=== PATIENT | male | born 1960 | race Caucasian/White ===

== ENCOUNTER 2021-05-07 14:54 | Inpatient (IN) | payer SELFPAY ==
[~2021-05-07] VITALS: Ht 185.4 cm; Wt 125.1 kg
[2021-05-07 15:00] VITALS: BP 130/78
--- NOTE | 2021-05-07 15:04 | PDOC1 ---
History and Physical Date of Admission Date of Admission DATE: 05/07/21 TIME: 15:04 Identification/Chief Complaint Chief Complaint worsening weeping wounds of both lower extremities. , ELEVATED TROPONIN, NEW ONSET DIABETES History of Present Illness History of Present Illness 60 YR OLD MALE TRANSFER FROM [facility], with bilateral lower ext cellulitis, suspected PVD , near occlusion of left peroneal artery by doppler today, worsening weeping wounds of both lower extremities. Will defer IV antibiotic therapy to infectious disease. Has normal arterial pulses bilaterally with no concern for arterial ischemia. cr 1.5 na = 131, bun 35, glucose 506, troponin i 0.105, BGB 14.6 LA 2.4 K=4.8 CRP 293 PLTS 297 ESR =34 Request for transfer for vascular surgery consult, ID consult, new dx diabetes, bilateral lower leg cellulitis, left great toe diabetic foot ulcer / blister. cellulitis of both lower extremities which is improving WITH IV ANTIBIOTICS was treated with iv vancomycin, heparin drip prior to transfer here Past Medical History Past Medical History COLON CA, 2012 , GB SURGERY Cardiovascular: HTN Endocrine: Diabetes Family History Family History: Hypertension Family History: Parent Social History Smoke: No ALCOHOL: none Drugs: None Allergies Allergies: Coded Allergies: No Known Drug Allergies (Unverified , 05/07/21) ROS General: YES: Fatigue, Other (polydipsia) PSYCHOLOGICAL ROS: No: Anxiety, Behavioral Disorder, Concentration difficultie, Decreased libido, Depression, Disorientation, Hallucinations, Hostility, Irritablity, Memory difficulties, Mood Swings, Obsessive thoughts, Physical abuse, Sexual abuse, Sleep disturbances, Suicidal ideation, Other Eyes: Yes Blurry vision; No Decreased vision, No Double vision, No Dry eyes, No Excessive tearing, No Eye Pain, No Itchy Eyes, No Loss of vision, No Photophobia, No Scotomata, No Uses contacts, No Uses glasses, No Other HEENT: No: Heacaches, Visual Changes, Hearing change, Nasal congestion, Nasal discharge, Oral lesions, Sinus pain, Sore Throat, Epistaxis, Sneezing, Snoring, Tinnitus, Vertigo, Vocal changes, Other ALLERGY AND IMMUNOLOGY: No: Hives, Insect Bite Sensitivity, Itchy/Watery Eyes, Nasal Congestion, Post Nasal Drip, Seasonal Allergies, Other Hematological and Lymphatic: No: Bleeding Problems, Blood Clots, Blood Transfusions, Brusing, Night Sweats, Pallor, Swollen Lymph Nodes, Other ENDOCRINE: No: Breast Changes, Galactorrhea, Hair Pattern Changes, Hot Flashes, Malaise/lethargy, Mood Swings, Palpitations, Polydipsia/polyuria, Skin Changes, Temperature Intolerance, Unexpected Weight Changes, Other Breast: No New/Changing Breast Lumps, No Nipple changes, No Nipple discharge, No Other Respiratory: No: Cough, Hemoptysis, Orthopnea, Pleuritic Pain, Shortness of breath, SOB with excertion, Sputum Changes, Stridor, Tachypnea, Wheezing, Other Cardiovascular: No Chest Pain, No Palpitations, No Orthopnea, No Paroxysmal Noc. Dyspnea, No Edema, No Lt Headedness, No Other Gastrointestinal: No Nausea, No Vomiting, No Abdominal Pain, No Diarrhea, No Constipation, No Melena, No Hematochezia, No Other Genitourinary: YES Frequency; No Dysuria, No Incontinence, No Hematuria, No Retention, No Discharge, No Urgency, No Pain, No Flank Pain, No Other, No , No , No , No , No , No , No Musculoskeletal: Yes Gait Disturbance, Yes Joint Stiffness, Yes Muscular Weakness, Yes Swelling In: (LEFT FOOT/ TOE) Neurological: Yes Gait Disturbance, Yes Numbness/Tingling Skin: Yes Dry Skin, Yes Eczema, Yes Pruritus, Yes Rash, Yes Skin Lesion Changes , Yes Other ( BILATERAL LWER EXT EXCORIATIONS, CELLULITIS ) Physical Exam General: Alert, Oriented X3, Cooperative, No acute distress, mild distress HEENT: Atraumatic, PERRLA, EOMI, Mucous membr. moist/pink Lungs: Clear to auscultation, Normal air movement Heart: RRR, no thrills, no rubs, no gallops Breasts: Not examined Abdomen: Normal bowel sounds, Soft, No tenderness, No masses, Other (obese) Rectal Exam: not examined, deferred PELVIC: Examination not indicated Extremities: No cyanosis, Other (rubor of both feet , blister left plantar TOE ) Skin: Other ( BILATERAL LWER EXT EXCORIATIONS, CELLULITIS ) Neuro: Normal speech, Cranial nerves 3-12 NL Psych/Mental Status: Mental status NL, Mood NL VTE Prophylaxis Ordered VTE Prophylaxis Devices: Contraindicated VTE Pharmacological Prophylaxi: Yes Assessment/Plan Assessment/Plan IMPRESSION NEW onset Diabetes, SS INSULIN, LANTUS 10 UNITS SQ HS Morbid obesity cellulitis of both lower extremities which is improving // cr 1.5 elevated troponin i ANDREEA LEFT GREAT TOE Plantar blister, early ulcer plan ADMIT VASCULAR SURGERY CONSULT reviewed CONT IV ANTIBIOTICS, D/C VANC monitor cr closely , avoid nephrotoxins , start iv zosyn ID CONSULT defer IV antibiotic therapy to infectious disease. normal arterial pulses bilaterally no concern for arterial ischemia. d/c iv heparin Cardiology consult SS INSULIN a1c x ray left foot D/W RN Justifications for Admission Other Justification VENKATA CLARK MD May 07, 2021 15:04
[2021-05-07] MEDS ORDERED: ALBUTEROL SULFATE 2.5 MG/3 ML NEBU. NEB PRN (15:15)
[2021-05-07] MEDS ORDERED: 0.9 % SODIUM CHLORIDE 10 ML DISP.SYRIN. IV PRN (15:15)
[2021-05-07] MEDS ORDERED: guaiFENesin ORAL 200 MG/10 ML LIQUID. PO PRN (15:15)
[2021-05-07] MEDS ORDERED: MAG HYDROX/ALUMINUM HYD/SIMETH 30 ML ORAL.SUSP PO PRN (15:15)
[2021-05-07] MEDS ORDERED: ONDANSETRON PF 4 MG/2 ML VIAL. IV PRN (15:15)
[2021-05-07] MEDS ORDERED: DOCUSATE SODIUM 100 MG CAPSULE. PO PRN (15:15)
[2021-05-07] MEDS ORDERED: IV NORMAL SALINE 1000ML BAG 1,000 ML IV SCH (15:15)
[2021-05-07] MEDS ORDERED: PIP/TAZO PER PHARMACY MC PRN (17:15)
[2021-05-07] MEDS ORDERED: VANCOMYCIN PER PHARMACY MC PRN (17:15)
[2021-05-07] MEDS ORDERED: DEXTROSE 50% 25 GM / 50ML DISP.SYRIN. IV PRN ×2 (17:15→18:00)
[2021-05-07 17:26] LABS: BASO % 0 % (0-3); EOS # 0.1 x10^3/uL (0.0-0.7); EOS % 1 % (0-3); HEMATOCRIT 44.8 % (39.0-53.0); HEMOGLOBIN 14.6 g/dL (13.0-17.5); LYMPH # 0.8 x10^3/uL (1.0-4.8); LYMPH % 6 % (24-48); MEAN CORPUSCULAR HEMOGLOBIN 27 pg (25-35); MEAN CORPUSCULAR HGB CONC 33 g/dL (31-37); MEAN CORPUSCULAR VOLUME 84 fL (79-100); MONO # 0.5 x10^3/uL (0.0-1.1); MONO % 4 % (0-9); NEUT # 11.5 x10^3/uL (1.8-7.7); NEUT % 89 % (31-73); PLATELET COUNT 344 x10^3/uL (140-400); RED BLOOD COUNT 5.37 x10^6/uL (4.30-5.70); WHITE BLOOD COUNT 12.9 x10^3/uL (4.0-11.0)
--- NOTE | 2021-05-07 17:37 | PDOC2 ---
CONSULT Date of Consult Date of Consult DATE: 05/07/21 TIME: 17:30 Identification/Chief Complaint Chief Complaint Bilateral lower extremity cellulitis History of Present Illness Reason for Visit: This a very pleasant 60-year-old male who was transferred in from [facility] due to concern for arterial ischemia. Patient has primarily been confined to his home in the last several weeks and states that he has developed worsening weeping wounds of both lower extremities. He also was diagnosed as a new diabetic. He did not know he was diabetic prior to this admission. He denies any lower extremity claudication symptoms. He states he is able to walk as far as he needs to prior to his legs being infected most recently. He denies any previous peripheral intervention. He denies any heart disease. He does admit that he does not see doctors regularly or receive routine health care. He denies any pain in the legs. Past Medical History Cardiovascular: CAD, HTN Endocrine: Diabetes Dermatology: Eczema, Cellulitis Past Surgical History Past Surgical History: Cholecystectomy, Colon Resection Family History Family History: Diabetes, Hypertension Social History No ALCOHOL: none Drugs: None Lives: Alone Domestic Violence: Neg Current Medications Current Medications Current Medications Sodium Chloride (Normal Saline Flush) 3 ml QSHIFT PRN IV AFTER MEDS AND BLOOD DRAWS; Start 05/07/21 at 15:15 Sodium Chloride 1,000 ml @ 75 mls/hr [id number] IV ; Start 05/07/21 at 15:15 Ondansetron HCl (Zofran) 4 mg PRN Q4HRS PRN IV NAUSEA/VOMITING; Start 05/07/21 at 15:15 Acetaminophen (Tylenol) 650 mg PRN Q4HRS PRN PO TEMP OVER 100.4F OR MILD PAIN; Start 05/07/21 at 15:15 Al Hydroxide/Mg Hydroxide (Mylanta Plus Xs) 30 ml PRN DAILY PRN PO HEARTBURN / GAS; Start 05/07/21 at 15:15 Docusate Sodium (Colace) 100 mg PRN BID PRN PO HARD STOOLS; Start 05/07/21 at 15:15 Albuterol Sulfate (Ventolin Neb Soln) 2.5 mg PRN Q4HRS PRN NEB SHORTNESS OF BREATH; Start 05/07/21 at 15:15 Guaifenesin (Robitussin) 200 mg PRN Q4HRS PRN PO COUGH; Start 05/07/21 at 15:15 Enoxaparin Sodium (Lovenox 40mg Syringe) 40 mg Q24H SQ ; Start 05/07/21 at 21:00 Insulin Human Lispro (HumaLOG) 0-9 UNITS TIDWMEALS SQ ; Start 05/07/21 at 17:30 Dextrose (Dextrose 50%-Water Syringe) 12.5 gm PRN Q15MIN PRN IV SEE COMMENTS; Start 05/07/21 at 17:15 Sodium Chloride 1,000 ml @ 150 mls/hr Q6H40M IV ; Start 05/07/21 at 17:15 Lactobacillus Rhamnosus (Culturelle) 1 cap BID PO ; Start 05/07/21 at 21:00 Morphine Sulfate (Morphine Sulfate) 4 mg PRN Q2HR PRN IV PAIN; Start 05/07/21 at 17:15 Nifedipine (Procardia Xl) 30 mg DAILY PO ; Start 05/08/21 at 09:00 Piperacillin Sod/ Tazobactam Sod (Zosyn Per Pharmacy) 1 each PRN DAILY PRN MC SEE COMMENTS; Start 05/07/21 at 17:15 Piperacillin Sod/ Tazobactam Sod 3.375 gm/Sodium Chloride 50 ml @ 100 mls/hr Q6HRS IV ; Start 05/07/21 at 18:00 Vancomycin HCl (Vanco Per Pharmacy) 1 each PRN DAILY PRN MC SEE COMMENTS; Start 05/07/21 at 17:15 Vancomycin HCl 1.75 gm/Sodium Chloride 500 ml @ 250 mls/hr Q12H IV ; Start 05/07/21 at 20:00; Status UNV Zolpidem Tartrate (Ambien) 5 mg PRN QHS PRN PO INSOMNIA; Start 05/07/21 at 17:15 Allergies Allergies: Coded Allergies: No Known Drug Allergies (Unverified , 05/07/21) ROS Skin: Yes Eczema, Yes Rash, Yes Skin Lesion Changes Physical Exam General: Alert, Oriented X3, Cooperative, No acute distress HEENT: Atraumatic, PERRLA, EOMI Lungs: Clear to auscultation, Normal air movement Heart: Regular rate, Normal S1, Normal S2, No murmurs Abdomen: Normal bowel sounds, Soft, No tenderness Extremities: No cyanosis, Normal pulses, Other (Palpable pulse exam bilaterally with normal dorsalis pedis pulses, normal sounding posterior tibial Doppler signals, palpable femoral and popliteal pulses bilaterally) Skin: Other (Significant cellulitis of bilateral lower extremities with superficial wounds anteriorly and posteriorly throughout both lower extremities bilaterally there is no obvious bony exposure, there is no crepitance, there is no evidence of purulent drainage) Neuro: Normal speech, Strength at 5/5 X4 ext, Sensation intact, Cranial nerves 3-12 NL Psych/Mental Status: Mental status NL, Mood NL MUSCULOSKELETAL: No deformity, No muscular tenderness noted, Full range of motion without pain Vitals VITALS Vital Signs Date Time Temp Pulse Resp B/P (MAP) Pulse Ox O2 Delivery O2 Flow Rate FiO2 05/07/21 15:00 98.0 102 18 130/78 (95) 93 Room Air 98.0 Labs Labs Laboratory Tests Test 05/07/21 17:15 White Blood Count 12.9 x10^3/uL (4.0-11.0) Red Blood Count 5.37 x10^6/uL (4.30-5.70) Hemoglobin 14.6 g/dL (13.0-17.5) Hematocrit 44.8 % (39.0-53.0) Mean Corpuscular Volume 84 fL (79-100) Mean Corpuscular Hemoglobin 27 pg (25-35) Mean Corpuscular Hemoglobin Concent 33 g/dL (31-37) Red Cell Distribution Width 16.0 % (11.5-14.5) Platelet Count 344 x10^3/uL (140-400) Neutrophils (%) (Auto) 89 % (31-73) Lymphocytes (%) (Auto) 6 % (24-48) Monocytes (%) (Auto) 4 % (0-9) Eosinophils (%) (Auto) 1 % (0-3) Basophils (%) (Auto) 0 % (0-3) Neutrophils # (Auto) 11.5 x10^3/uL (1.8-7.7) Lymphocytes # (Auto) 0.8 x10^3/uL (1.0-4.8) Monocytes # (Auto) 0.5 x10^3/uL (0.0-1.1) Eosinophils # (Auto) 0.1 x10^3/uL (0.0-0.7) Basophils # (Auto) 0.0 x10^3/uL (0.0-0.2) Laboratory Tests Test 05/07/21 17:15 White Blood Count 12.9 x10^3/uL (4.0-11.0) Red Blood Count 5.37 x10^6/uL (4.30-5.70) Hemoglobin 14.6 g/dL (13.0-17.5) Hematocrit 44.8 % (39.0-53.0) Mean Corpuscular Volume 84 fL (79-100) Mean Corpuscular Hemoglobin 27 pg (25-35) Mean Corpuscular Hemoglobin Concent 33 g/dL (31-37) Red Cell Distribution Width 16.0 % (11.5-14.5) Platelet Count 344 x10^3/uL (140-400) Neutrophils (%) (Auto) 89 % (31-73) Lymphocytes (%) (Auto) 6 % (24-48) Monocytes (%) (Auto) 4 % (0-9) Eosinophils (%) (Auto) 1 % (0-3) Basophils (%) (Auto) 0 % (0-3) Neutrophils # (Auto) 11.5 x10^3/uL (1.8-7.7) Lymphocytes # (Auto) 0.8 x10^3/uL (1.0-4.8) Monocytes # (Auto) 0.5 x10^3/uL (0.0-1.1) Eosinophils # (Auto) 0.1 x10^3/uL (0.0-0.7) Basophils # (Auto) 0.0 x10^3/uL (0.0-0.2) Assessment/Plan Assessment/Plan Bilateral lower extremity severe cellulitis--patient has cellulitis of both lower extremities which is improving with broad-spectrum IV antibiotic therapy. There is no surgical therapy indicated. Would continue aggressive dressing changes and wound care. Will defer IV antibiotic therapy to infectious disease. Has normal arterial pulses bilaterally with no concern for arterial ischemia. There is no revascularization indicated. All questions were answered to the patient's satisfaction. Nery Desouza DO, NERY RAMOS DO May 07, 2021 17:36
[2021-05-07 18:03] LABS: ALBUMIN/GLOBULIN RATIO 0.4 (1.0-1.7); CALCIUM 8.7 mg/dL (8.5-10.1); GFR 34.3; POTASSIUM 4.5 mmol/L (3.5-5.1); TOTAL PROTEIN 6.5 g/dL (6.4-8.2)
[2021-05-07] MEDS: IV NORMAL SALINE 1000ML BAG 1,000 ML IV SCH (18:10)
[2021-05-07 18:31] LABS: % BANDS 18 % (0-9); % EOS 2 % (0-5); % LYMPHS 3 % (24-48); % MONOS 3 % (0-10); % SEGS 74 % (35-66); PLT ESTIMATE ADEQUATE (ADEQUATE)
[2021-05-07 19:20] VITALS: BP 123/81
[2021-05-07] MEDS: PIPERACILLIN/TAZOBACTAM 3.375 GM in IV NORMAL SALINE 50ML 50 ML IV SCH (19:36)
[2021-05-07] MEDS: INSULIN LISPRO 300 UNITS/3 ML VIAL. SQ SCH (19:46)
[2021-05-07] MEDS ORDERED: VANCOMYCIN 1.75 GM in IV NORMAL SALINE 500ML BAG 500 ML IV SCH (20:00)
[2021-05-07] MEDS: MORPHINE SULFATE 4 MG/ML INJ. IV PRN (20:20)
[2021-05-07 20:44] LABS: CALCIUM 8.6 mg/dL (8.5-10.1); CREATININE 2.1 mg/dL (0.7-1.3); GFR 32.4; POTASSIUM 4.5 mmol/L (3.5-5.1)
[2021-05-07] MEDS: LACTOBACILLUS RHAMNOSUS GG 1 CAPSULE. PO SCH (21:00)
[2021-05-07] MEDS: ENOXAPARIN 40 MG/0.4 ML SYRINGE. SQ SCH (21:00)
[2021-05-07] MEDS: ZOLPIDEM 5 MG TABLET. PO PRN (22:01)
[2021-05-07] MEDS: INSULIN GLARGINE SYRINGE. SQ SCH (22:03)
[2021-05-07 23:59] VITALS: BP 117/74
[2021-05-08] MEDS: PIPERACILLIN/TAZOBACTAM 3.375 GM in IV NORMAL SALINE 50ML 50 ML IV SCH ×4 (00:37→17:46)
[2021-05-08] MEDS: IV NORMAL SALINE 1000ML BAG 1,000 ML IV SCH ×3 (02:07→17:46)
[2021-05-08 03:59] VITALS: BP 115/78
[2021-05-08] MEDS: MORPHINE SULFATE 4 MG/ML INJ. IV PRN ×3 (06:19→19:24)
[2021-05-08 07:00] VITALS: BP 134/91
[2021-05-08 07:58] LABS: VANC TR 18.3 mcg/mL (10.0-20.0)
[2021-05-08] MEDS ORDERED: INSULIN LISPRO 300 UNITS/3 ML VIAL. SQ SCH (08:00)
[2021-05-08] MEDS: LACTOBACILLUS RHAMNOSUS GG 1 CAPSULE. PO SCH ×2 (09:01→21:05)
[2021-05-08] MEDS: ACETAMINOPHEN 325 MG TABLET. PO PRN ×2 (09:09→15:11)
--- NOTE | 2021-05-08 09:12 | CONS ---
DATE OF CONSULTATION: 05/08/2021 REFERRING PHYSICIAN: Dr. Baxter. REASON FOR CONSULTATION: Antibiotic management for bilateral lower extremity cellulitis. HISTORY OF PRESENT ILLNESS: A 60-year-old male who presented to [place] with complaints of bilateral lower extremity wounds, failed outpatient treatment. The patient developed rash on both lower extremities about a month ago. The patient has underlying eczema. He initially thought that was just skin irritation, progressively got worse with redness, erythema, open wounds, nonhealing despite outpatient wound clinic treatment. He has a history of diabetes. Upon presentation, he was found to have ANDREEA, lactic acidosis, mild troponin elevation. The patient denies any fever, chills, nausea, vomiting, diarrhea, abdominal pain. Denies being seen by any provider in the last couple of years. He denies being on any antibiotics recently. He had some diarrhea, which he attributes to getting some prednisone for lower extremity wounds. Patient was started on Zosyn. White count here was 12.5. Lactic acid was 2.4 at outside hospital. Creatinine was 1.5, albumin was 2.2. UA was negative. ESR was 34. C-reactive protein was 283. Glucose was 510 by fingerstick. PAST MEDICAL HISTORY: Diabetes, hypertension, coronary artery disease, history of colorectal cancer in 2012, gallbladder surgery. FAMILY HISTORY: As per HPI. SOCIAL HISTORY: Denies smoking, ETOH, or illicit drug use. Lives at home. No pets. ALLERGIES: No known drug allergies. CURRENT MEDICATIONS: Zosyn. Other medications reviewed in medication list. The patient also on vancomycin, which is discontinued. REVIEW OF SYSTEMS: Negative except for above in the HPI. PHYSICAL EXAMINATION: VITAL SIGNS: Temperature 97.3, pulse 100, respiratory rate 18, blood pressure 134/91, oxygen saturation 96% on room air. GENERAL: Alert, oriented x 3 male sitting upright in bed, in no acute distress, nontoxic appearing. HEENT: Normocephalic, atraumatic. Anicteric. No thrush. Dentition poor. NECK: Supple, no JVD. LUNGS: Clear. HEART: S1, S2. No murmurs. ABDOMEN: Soft, nontender, nondistended. EXTREMITIES: Bilateral lower extremity dressing in place, intact, not taken down. DERM: Wound pictures noted in chart. The patient has bilateral lower extremity excoriation in the thigh. Bilateral foot callus, left toe greater than right toe. Right lower extremity wounds with ulceration noted numerous. No gross purulence noted. Edema present. LABORATORY DATA: WBC 12.9, hemoglobin 14.6, platelets 344. Sodium 132, potassium 4.5, chloride 97, bicarbonate 25, BUN 46, creatinine 2.0, glucose down to 235, albumin 2.0, vancomycin 18.3. IMAGING: Foot x-ray results pending at this time. IMPRESSION: 1. Bilateral lower extremity chronic wounds. 2. Mild superimposed infection. 3. Peripheral arterial disease. 4. Leukocytosis, was on steroids. 5. Lactic acidosis. 6. Acute kidney injury. 7. Uncontrolled diabetes. 8. History of noncompliance. 9. Eczema. 10. History of colon cancer. RECOMMENDATIONS: 1. Continue Zosyn, may need renal dosing. 2. Start daptomycin. 3. Continue local wound care. 4. Elevate legs. 5. Vascular Surgery consult noted. 6. Offload. 7. Optimal diabetes control. 8. Optimal edema control. 9. Follow up labs and cultures. 10. Continue supportive care. Thank you, Dr. Baxter for consulting Infectious Disease to participate in this patient's care. If you have any questions, do not hesitate to contact me. Discussed with nursing staff. DEO/EDUARDO DR: Garcia TID: [id number]
[2021-05-08] MEDS: INSULIN LISPRO 300 UNITS/3 ML VIAL. SQ SCH ×3 (09:17→17:52)
[2021-05-08 10:28] VITALS: BP 133/86
--- NOTE | 2021-05-08 11:00 | RAD ---
XR FOOT_LEFT 3 VIEWS History: Swelling, diabetic foot Comparison: None. Technique: 3 views of the left foot. Findings: Prominent swelling of the dorsum of the foot. No fracture or dislocation identified. No aggressive os seous or erosive change. Degenerative changes at the first metatarsophalangeal joint and interphalang eal joints. Plantar calcaneal and Achilles insertion enthesophytes. Impression: 1. Soft tissue swelling without acute osseous abnormality or aggressive osseous erosive process in t he left foot. Electronically signed by: Crispin Bradley MD (05/08/2021 10:58 AM) [facility]
--- NOTE | 2021-05-08 11:12 | NUR ---
SS following for discharge planning. SS reviewed pt chart and discussed with pt RN. Pt is from home and is currently on room air. ID, Vascular, Cardiology, and wound care consulted. Pt on IV Daptomycin and IV Zosyn. Self pay. SS will continue to follow for discharge planning.
[2021-05-08] MEDS: DAPTOmycin (GENERIC) IVPB 570 MG in IV NORMAL SALINE 50ML 50 ML IV SCH (12:29)
--- NOTE | 2021-05-08 13:02 | PDOC ---
ALICE LINDSAY SENIOR SALES COMPENSATION ANALYST 05/08/21 1302: CARDIO Progress Notes Date and Time Date of Service 05/08/21 Time of Evaluation 1245 Subjective Subjective: No Chest Pain, No shortness of breath, No Palpitations Vitals Vitals Vital Signs Date Time Temp Pulse Resp B/P (MAP) Pulse Ox O2 Delivery O2 Flow Rate FiO2 05/08/21 10:28 97.8 104 18 133/86 (102) 95 Room Air 97.8 Weight Weight [ ] Input and Output Intake and Output Intake and Output 05/08/21 07:00 Intake Total 300 ml Output Total 300 ml Balance 0 ml Intake Oral 300 ml Output Urine Total 300 ml Laboratory Labs Laboratory Tests Test 05/07/21 16:17 05/07/21 17:15 05/07/21 18:30 05/07/21 19:42 Glucose (Fingerstick) 253 mg/dL (70-99) 267 mg/dL (70-99) 295 mg/dL (70-99) White Blood Count 12.9 x10^3/uL (4.0-11.0) Red Blood Count 5.37 x10^6/uL (4.30-5.70) Hemoglobin 14.6 g/dL (13.0-17.5) Hematocrit 44.8 % (39.0-53.0) Mean Corpuscular Volume 84 fL (79-100) Mean Corpuscular Hemoglobin 27 pg (25-35) Mean Corpuscular Hemoglobin Concent 33 g/dL (31-37) Red Cell Distribution Width 16.0 % (11.5-14.5) Platelet Count 344 x10^3/uL (140-400) Neutrophils (%) (Auto) 89 % (31-73) Lymphocytes (%) (Auto) 6 % (24-48) Monocytes (%) (Auto) 4 % (0-9) Eosinophils (%) (Auto) 1 % (0-3) Basophils (%) (Auto) 0 % (0-3) Neutrophils # (Auto) 11.5 x10^3/uL (1.8-7.7) Lymphocytes # (Auto) 0.8 x10^3/uL (1.0-4.8) Monocytes # (Auto) 0.5 x10^3/uL (0.0-1.1) Eosinophils # (Auto) 0.1 x10^3/uL (0.0-0.7) Basophils # (Auto) 0.0 x10^3/uL (0.0-0.2) Segmented Neutrophils % 74 % (35-66) Band Neutrophils % 18 % (0-9) Lymphocytes % 3 % (24-48) Monocytes % 3 % (0-10) Eosinophils % 2 % (0-5) Dohle Bodies Present Platelet Estimate Adequate (ADEQUATE) Sodium Level 132 mmol/L (136-145) Potassium Level 4.5 mmol/L (3.5-5.1) Chloride Level 97 mmol/L (98-107) Carbon Dioxide Level 25 mmol/L (21-32) Anion Gap 10 (6-14) Blood Urea Nitrogen 46 mg/dL (8-26) Creatinine 2.0 mg/dL (0.7-1.3) Estimated GFR (Cockcroft-Gault) 34.3 BUN/Creatinine Ratio 23 (6-20) Glucose Level 235 mg/dL (70-99) Calcium Level 8.7 mg/dL (8.5-10.1) Total Bilirubin 1.0 mg/dL (0.2-1.0) Aspartate Amino Transf (AST/SGOT) 30 U/L (15-37) Alanine Aminotransferase (ALT/SGPT) 34 U/L (16-63) Alkaline Phosphatase 142 U/L (46-116) Total Protein 6.5 g/dL (6.4-8.2) Albumin 2.0 g/dL (3.4-5.0) Albumin/Globulin Ratio 0.4 (1.0-1.7) Test 05/07/21 20:10 05/07/21 20:49 05/08/21 07:20 05/08/21 07:33 Sodium Level 132 mmol/L (136-145) Potassium Level 4.5 mmol/L (3.5-5.1) Chloride Level 100 mmol/L (98-107) Carbon Dioxide Level 23 mmol/L (21-32) Anion Gap 9 (6-14) Blood Urea Nitrogen 51 mg/dL (8-26) Creatinine 2.1 mg/dL (0.7-1.3) Estimated GFR (Cockcroft-Gault) 32.4 Glucose Level 292 mg/dL (70-99) Calcium Level 8.6 mg/dL (8.5-10.1) Glucose (Fingerstick) 257 mg/dL (70-99) 226 mg/dL (70-99) Vancomycin Level Trough 18.3 mcg/mL (10.0-20.0) Vancomycin Last Dose Date 05/07/21 Vancomycin Last Dose Time 0800 Test 05/08/21 11:39 Glucose (Fingerstick) 259 mg/dL (70-99) Physical Exam HEENT: Neck Supple W Full Motion Chest: Symmetric LUNGS: Clear to Auscultation Heart: RRR, no gallops Abdomen: Soft N/T Extremities: Other (bilateral LE cellulitis, drsgs intact ) Neurology: alert, oriented, follow commands Assessment Assessment 1. LE cellulitis 2. Lactic acidosis 3. ANDREEA 4. Uncontrolled diabetes, II; as per IM 5. Mild troponin elevation; highest 0.28. Most probably type II, demand ischemia in setting of above. CP free 6. Sinus tachycardia, reactive to above. improved 7. Hypertensive urgency; now controlled. 8. PAD; arterial duplex with occlusion of left peroneal artery. No major vascular stenosis above the knee 9. Arrhythmia; burst of 6-beat NSVT noted on tele at [facility]. 10. Noncompliance Recommendations Echo to assess LV systolic function Add ASA Ongoing antibiotic therapy, treatment of cellulitis Local wound care Supportive care Justicifation of Admission Dx: Justifications for Admission: Justification of Admission Dx: Yes Comments: LE cellulitis with failed outpatient treatment Elevated troponin MAYNOR WOLFE MD 05/08/212054: CARDIO Progress Notes Assessment Assessment Patient seen and examined. Agree with RADIO EQUIPMENT INSTALLER's assessment and plan. Continue IV antibiotics for LE cellulitis Arterial duplex did not show any significant lesions needing intervention Check echo to assess LVF ALICE LINDSAY APRN May 08, 2021 13:02 MAYNOR WOLFE MD May 08, 2021 20:55
--- NOTE | 2021-05-08 13:05 | PDOC ---
[employer] PROGRESS NOTE Date of Service DOS: DATE: 05/08/21 TIME: 12:55 Chief Complaint Chief Complaint CC: bilateral LE cellulitis, elevated troponin I BL LE cellulitis Elevated troponin I (0.265) Newly diagnosed diabetes, type 2 ANDREEA Hyponatremia PVD Left great toe diabetic ulcer HTN H/o colon cancer in 2011 History of Present Illness History of Present Illness 05/08/21 Patient seen and examined Patient in bed, alert, NAD Afebrile Clean dry intact dressing on bilateral LE Run of PVCs on classroom monitor during exam Patient denies palpitations, chest pain, dyspnea Discussed with RN Vitals/I&O Vitals/I&O: Vital Signs Date Time Temp Pulse Resp B/P (MAP) Pulse Ox O2 Delivery O2 Flow Rate FiO2 05/08/21 10:28 97.8 104 18 133/86 (102) 95 Room Air 97.8 I & O 05/07/21 05/07/21 05/08/21 15:00 23:00 07:00 Intake Total 100 ml 200 ml Output Total 300 ml Balance 100 ml -100 ml Physical Exam Physical Exam: GENERAL: NAD, Alert HEENT: PERRL, OC/OP NECK: Supple, no JVD, no LN LUNGS: Clear HEART: S1S2, no gallop, no murmur, PVCs on classroom monitor ABD: Soft, NT, no organomegaly, no rebound EXT: No edema, no cyanosis. Bilateral lower extremity cellulitis. Small ulcerated blister on left great toe. SHOW DOG TRAINER: Alert, oriented x 3, no focal neurologic deficit SKIN: Bilateral lower extremity cellulitis. Small ulcerated blister on left great toe. IV: ok General: Alert, Oriented X3, Cooperative, No acute distress Heart: Regular rate, Normal S1, Normal S2, No murmurs, Other (PVCs on classroom monitor) Abdomen: Normal bowel sounds, Soft, No tenderness Extremities: No cyanosis, Normal pulses, Other (Palpable pulse exam bilaterally with normal dorsalis pedis pulses, normal sounding posterior tibial Doppler s ignals, palpable femoral and popliteal pulses bilaterally) Skin: Other ( BILATERAL LWER EXT EXCORIATIONS, CELLULITIS. Left great toe small ulcer ) Labs Labs: Laboratory Tests Test 05/07/21 16:17 05/07/21 17:15 05/07/21 18:30 05/07/21 19:42 Glucose (Fingerstick) 253 mg/dL (70-99) 267 mg/dL (70-99) 295 mg/dL (70-99) White Blood Count 12.9 x10^3/uL (4.0-11.0) Red Blood Count 5.37 x10^6/uL (4.30-5.70) Hemoglobin 14.6 g/dL (13.0-17.5) Hematocrit 44.8 % (39.0-53.0) Mean Corpuscular Volume 84 fL (79-100) Mean Corpuscular Hemoglobin 27 pg (25-35) Mean Corpuscular Hemoglobin Concent 33 g/dL (31-37) Red Cell Distribution Width 16.0 % (11.5-14.5) Platelet Count 344 x10^3/uL (140-400) Neutrophils (%) (Auto) 89 % (31-73) Lymphocytes (%) (Auto) 6 % (24-48) Monocytes (%) (Auto) 4 % (0-9) Eosinophils (%) (Auto) 1 % (0-3) Basophils (%) (Auto) 0 % (0-3) Neutrophils # (Auto) 11.5 x10^3/uL (1.8-7.7) Lymphocytes # (Auto) 0.8 x10^3/uL (1.0-4.8) Monocytes # (Auto) 0.5 x10^3/uL (0.0-1.1) Eosinophils # (Auto) 0.1 x10^3/uL (0.0-0.7) Basophils # (Auto) 0.0 x10^3/uL (0.0-0.2) Segmented Neutrophils % 74 % (35-66) Band Neutrophils % 18 % (0-9) Lymphocytes % 3 % (24-48) Monocytes % 3 % (0-10) Eosinophils % 2 % (0-5) Dohle Bodies Present Platelet Estimate Adequate (ADEQUATE) Sodium Level 132 mmol/L (136-145) Potassium Level 4.5 mmol/L (3.5-5.1) Chloride Level 97 mmol/L (98-107) Carbon Dioxide Level 25 mmol/L (21-32) Anion Gap 10 (6-14) Blood Urea Nitrogen 46 mg/dL (8-26) Creatinine 2.0 mg/dL (0.7-1.3) Estimated GFR (Cockcroft-Gault) 34.3 BUN/Creatinine Ratio 23 (6-20) Glucose Level 235 mg/dL (70-99) Calcium Level 8.7 mg/dL (8.5-10.1) Total Bilirubin 1.0 mg/dL (0.2-1.0) Aspartate Amino Transf (AST/SGOT) 30 U/L (15-37) Alanine Aminotransferase (ALT/SGPT) 34 U/L (16-63) Alkaline Phosphatase 142 U/L (46-116) Total Protein 6.5 g/dL (6.4-8.2) Albumin 2.0 g/dL (3.4-5.0) Albumin/Globulin Ratio 0.4 (1.0-1.7) Test 05/07/21 20:10 05/07/21 20:49 05/08/21 07:20 05/08/21 07:33 Sodium Level 132 mmol/L (136-145) Potassium Level 4.5 mmol/L (3.5-5.1) Chloride Level 100 mmol/L (98-107) Carbon Dioxide Level 23 mmol/L (21-32) Anion Gap 9 (6-14) Blood Urea Nitrogen 51 mg/dL (8-26) Creatinine 2.1 mg/dL (0.7-1.3) Estimated GFR (Cockcroft-Gault) 32.4 Glucose Level 292 mg/dL (70-99) Calcium Level 8.6 mg/dL (8.5-10.1) Glucose (Fingerstick) 257 mg/dL (70-99) 226 mg/dL (70-99) Vancomycin Level Trough 18.3 mcg/mL (10.0-20.0) Vancomycin Last Dose Date 05/07/21 Vancomycin Last Dose Time 0800 Test 05/08/21 11:39 Glucose (Fingerstick) 259 mg/dL (70-99) Review of Systems Review of Systems: CONSTITUTIONAL: No fever or chills CARDIOVASCULAR: No chest pain, no palpitations, no chest pressure RESPIRATORY: No shortness of breath, cough GI: No nausea, vomiting, or diarrhea, abdominal pain NEURO: No headache, dizziness Assessment and Plan Assessmemt and Plan ASSESSMENT BL LE cellulitis Elevated troponin I (0.265) Newly diagnosed diabetes, type 2 ANDREEA Hyponatremia PVD Left great toe diabetic ulcer HTN H/o colon cancer in 2012 PLAN Cardiac monitoring IV antibiotics Wound care Trend labs PT/OT Appreciate wound care Appreciate subspecialist input Podiatry consult DVT prophylaxis Full code Comment Review of Relevant I have reviewed the following items rosa (where applicable) has been applied. Medications: Current Medications Medications (Trade) Dose Ordered Sig/Mata Route PRN Reason Start Time Stop Time Status Last Admin Dose Admin Acetaminophen (Tylenol) 650 mg PRN Q4HRS PRN PO TEMP OVER 100.4F OR MILD PAIN 05/07/21 15:15 05/08/21 09:09 Enoxaparin Sodium (Lovenox 40mg Syringe) 40 mg Q24H SQ 05/07/21 21:00 05/07/21 21:00 Insulin Human Lispro (HumaLOG) 0-9 UNITS TIDWMEALS SQ 05/07/21 17:30 05/08/21 12:37 Sodium Chloride 1,000 ml @ 150 mls/hr Q6H40M IV 05/07/21 17:15 05/08/21 09:09 Lactobacillus Rhamnosus (Culturelle) 1 cap BID PO 05/07/21 21:00 05/08/21 09:01 Morphine Sulfate (Morphine Sulfate) 4 mg PRN Q2HR PRN IV PAIN 05/07/21 17:15 05/08/21 06:19 Nifedipine (Procardia Xl) 30 mg DAILY PO 05/08/21 09:00 05/08/21 09:01 Piperacillin Sod/ Tazobactam Sod 3.375 gm/Sodium Chloride 50 ml @ 100 mls/hr Q6HRS IV 05/07/21 18:00 05/08/21 06:16 Zolpidem Tartrate (Ambien) 5 mg PRN QHS PRN PO INSOMNIA 05/07/21 17:15 05/07/21 22:01 Insulin Glargine (Lantus Syringe) 10 unit QHS SQ 05/07/21 21:00 05/07/21 22:03 Daptomycin 570 mg/ Sodium Chloride 50 ml @ 100 mls/hr Q24H IV 05/08/21 11:00 05/08/21 12:29 Justifications for Admission General Conditions Abnormal capillary refill?: Yes Justification for admission: Patient has tachycardia (> 100 beats per minute) or hypotension (SBP < 90 mm Hg) leading to inadequate systemic perfusion as indicated by new abnormal capillary refill of greater than 3 seconds. Other justification for admit: severe pvd Other Justification RADHA BROWN III DO May 08, 2021 13:05
--- NOTE | 2021-05-08 13:45 | NUR ---
Wound Care Wound Type/Assessment: patient seen per wound care consult. see wound assessment. patient has bilateral great toe DFU, that are closed dark calloused area. patient also has bilateral lower leg cellulitis, the areas to bilateral legs are weeping with a moderate yellow drainage, the legs have a dark red appearance in some areas with multiple areas of yellow slough, both legs area edematous. Bilateral great toe wounds were cleaned, measured, pictured and redressed with recommendations of Xeroform gauze with a non adhesive foam and tape. bilateral lower legs were cleaned, measured and redressed with recommendations of therahoney gel with Aquacel ag with abd pads, Kerlix and tape. patients legs elevated with pillows at this time. Treatment Recommendations/Plan:Recommendations for the great toe wounds: cleanse wound, apply Xeroform gauze with a non adhesive foam with tape, change every 2-3 days. Recommendations for bilateral lower legs: cleanse the wounds then apply therahoney gel to the yellow slough areas then apply Aquacel ag over with abd pads, Kerlix and tape, change every other day. Patient needs to elevate bilateral lower legs with pillows. Education provided: Educated patient on the dressings. Recommendations: Recommend wound care physician to assess for possible bedside debridement. Discharge Recommendations for dressings: Wound Care will continue to f/u.
--- NOTE | 2021-05-08 14:59 | RAD ---
EXAMINATION: Chest radiograph. VIEWS: Single view COMPARISON: 08/17/2011 INDICATION:60 years, Male, PICC line placement. FINDINGS: Borderline enlarged cardiomediastinal silhouette. Bibasilar subsegmental and/or infiltrates. No sizab le pleural effusion or pneumothorax. No acute osseous process. Left PICC line venous catheter termina edu in the superior cavoatrial junction. IMPRESSION: 1. Left PICC line venous catheter terminates in the superior cavoatrial junction. 2. Bibasilar subsegmental atelectasis and/or infiltrates. Clinical correlation is advised. Electronically signed by: Lorenzo Hines MD (05/08/2021 2:56 PM) [facility]
[2021-05-08 15:00] VITALS: BP 136/99
[2021-05-08] MEDS: MULTIVITAMIN I-VITE TABLET. PO SCH (15:10)
[2021-05-08] MEDS: ASCORBIC ACID 500 MG TABLET PO SCH (15:10)
[2021-05-08 19:28] LABS: BILIRUBIN,URINE NEGATIVE (NEG); CLARITY,URINE CLOUDY; COLOR,URINE AMBER; NITRITE,URINE NEGATIVE (NEG); PROTEIN,URINE 100 mg/dL (NEG-TRACE); UROBILINOGEN,URINE 0.2 mg/dL (0.2 mg/dL)
[2021-05-08 19:35] LABS: AMORPHOUS SEDIMENT,UR PRESENT /HPF; BACTERIA,URINE 0 /HPF (0-FEW); GRANULAR CASTS,URINE FEW /HPF; RBC,URINE 0 /HPF (0-2)
[2021-05-08 19:36] LABS: WBC,URINE OCC /HPF (0-4)
[2021-05-08 19:54] VITALS: BP 136/86
[2021-05-08] MEDS: ENOXAPARIN 40 MG/0.4 ML SYRINGE. SQ SCH (21:06)
[2021-05-08] MEDS: INSULIN GLARGINE SYRINGE. SQ SCH (21:09)
[2021-05-08 23:59] VITALS: BP 123/79
[2021-05-09] MEDS: ZOLPIDEM 5 MG TABLET. PO PRN ×2 (00:16→21:48)
[2021-05-09] MEDS: PIPERACILLIN/TAZOBACTAM 3.375 GM in IV NORMAL SALINE 50ML 50 ML IV SCH ×4 (00:16→18:10)
[2021-05-09 01:11] LABS: HEMOGLOBIN A1C 11.7 % (4.8-5.6)
[2021-05-09] MEDS: IV NORMAL SALINE 1000ML BAG 1,000 ML IV SCH ×4 (01:35→18:10)
[2021-05-09 03:18] VITALS: BP 124/93
[2021-05-09 04:47] LABS: BASO % 0 % (0-3); EOS # 0.3 x10^3/uL (0.0-0.7); EOS % 3 % (0-3); HEMATOCRIT 43.6 % (39.0-53.0); HEMOGLOBIN 14.2 g/dL (13.0-17.5); LYMPH # 0.8 x10^3/uL (1.0-4.8); LYMPH % 8 % (24-48); MEAN CORPUSCULAR HEMOGLOBIN 27 pg (25-35); MEAN CORPUSCULAR HGB CONC 33 g/dL (31-37); MEAN CORPUSCULAR VOLUME 84 fL (79-100); MONO # 0.7 x10^3/uL (0.0-1.1); MONO % 7 % (0-9); NEUT # 8.9 x10^3/uL (1.8-7.7); NEUT % 83 % (31-73); PLATELET COUNT 357 x10^3/uL (140-400); RED BLOOD COUNT 5.19 x10^6/uL (4.30-5.70); RED CELL DISTRIBUTION WIDTH 16.1 % (11.5-14.5); WHITE BLOOD COUNT 10.8 x10^3/uL (4.0-11.0)
[2021-05-09 05:12] LABS: CALCIUM 8.4 mg/dL (8.5-10.1); CREATININE 2.4 mg/dL (0.7-1.3); GFR 27.8; POTASSIUM 3.6 mmol/L (3.5-5.1)
[2021-05-09] MEDS: MORPHINE SULFATE 4 MG/ML INJ. IV PRN ×4 (06:03→19:36)
[2021-05-09 07:49] VITALS: BP 138/89
[2021-05-09] MEDS: INSULIN LISPRO 300 UNITS/3 ML VIAL. SQ SCH ×3 (08:00→18:16)
--- NOTE | 2021-05-09 08:51 | PDOC ---
Infectious Disease Note Subjective: Subjective Pt without complaints Vital Signs: Vital Signs Vital Signs Date Time Temp Pulse Resp B/P (MAP) Pulse Ox O2 Delivery O2 Flow Rate FiO2 05/09/21 07:49 97.8 102 20 138/89 (105) 92 Room Air 97.8 Physical Exam: PHYSICAL EXAM GENERAL: Alert, oriented x 3 male in no acute distress, nontoxic appearing. HEENT: Normocephalic, atraumatic. Anicteric. No thrush. Dentition poor. NECK: Supple, no JVD. LUNGS: Clear. HEART: S1, S2. No murmurs. ABDOMEN: Soft, nontender, nondistended. EXTREMITIES: Bilateral lower extremity dressing in place, intact, not taken down. DERM: Wound pictures noted in chart. The patient has bilateral lower extremity excoriation in the thigh. Bilateral foot callus, left toe greater than right toe. Right lower extremity wounds with ulceration noted numerous. No gross purulence noted. Edema present. LUE PICC line clean Medications: Inpatient Meds: Medications reviewed. Labs: Lab Laboratory Tests Test 05/08/21 11:39 05/08/21 17:14 05/08/21 19:00 05/08/21 21:04 Glucose (Fingerstick) 259 mg/dL (70-99) 233 mg/dL (70-99) 251 mg/dL (70-99) Urine Collection Type Unknown Urine Color Donya Urine Clarity Cloudy Urine pH 5.0 (<5.0-8.0) Urine Specific [place] 1.025 (1.000-1.030) Urine Protein 100 mg/dL (NEG-TRACE) Urine Glucose (UA) 250 mg/dL (NEG) Urine Ketones (Stick) Trace mg/dL (NEG) Urine Blood Negative (NEG) Urine Nitrite Negative (NEG) Urine Bilirubin Negative (NEG) Urine Urobilinogen Dipstick 0.2 mg/dL (0.2 mg/dL) Urine Leukocyte Esterase Negative (NEG) Urine RBC 0 /HPF (0-2) Urine WBC Occ /HPF (0-4) Urine Squamous Epithelial Cells Occ /LPF Urine Amorphous Sediment Present /HPF Urine Bacteria 0 /HPF (0-FEW) Urine Granular Casts Few /HPF Urine Mucus Slight /LPF Test 05/09/21 03:40 05/09/21 07:51 White Blood Count 10.8 x10^3/uL (4.0-11.0) Red Blood Count 5.19 x10^6/uL (4.30-5.70) Hemoglobin 14.2 g/dL (13.0-17.5) Hematocrit 43.6 % (39.0-53.0) Mean Corpuscular Volume 84 fL (79-100) Mean Corpuscular Hemoglobin 27 pg (25-35) Mean Corpuscular Hemoglobin Concent 33 g/dL (31-37) Red Cell Distribution Width 16.1 % (11.5-14.5) Platelet Count 357 x10^3/uL (140-400) Neutrophils (%) (Auto) 83 % (31-73) Lymphocytes (%) (Auto) 8 % (24-48) Monocytes (%) (Auto) 7 % (0-9) Eosinophils (%) (Auto) 3 % (0-3) Basophils (%) (Auto) 0 % (0-3) Neutrophils # (Auto) 8.9 x10^3/uL (1.8-7.7) Lymphocytes # (Auto) 0.8 x10^3/uL (1.0-4.8) Monocytes # (Auto) 0.7 x10^3/uL (0.0-1.1) Eosinophils # (Auto) 0.3 x10^3/uL (0.0-0.7) Basophils # (Auto) 0.0 x10^3/uL (0.0-0.2) Sodium Level 136 mmol/L (136-145) Potassium Level 3.6 mmol/L (3.5-5.1) Chloride Level 101 mmol/L (98-107) Carbon Dioxide Level 22 mmol/L (21-32) Anion Gap 13 (6-14) Blood Urea Nitrogen 55 mg/dL (8-26) Creatinine 2.4 mg/dL (0.7-1.3) Estimated GFR (Cockcroft-Gault) 27.8 Glucose Level 158 mg/dL (70-99) Calcium Level 8.4 mg/dL (8.5-10.1) Glucose (Fingerstick) 141 mg/dL (70-99) Objective: Assessment: 1. Bilateral lower extremity chronic wounds. 2. Mild superimposed infection. 3. Peripheral arterial disease. 4. Leukocytosis, was on steroids. 5. Lactic acidosis. 6. Acute kidney injury. 7. Uncontrolled diabetes. 8. History of noncompliance. 9. Eczema. 10. History of colon cancer. Plan: Plan of Care 1. Continue Zosyn, may need renal dosing. 2. cont daptomycin. 3. Continue local wound care. 4. Elevate legs. 5. Vascular Surgery consult noted. 6. Offload. 7. Optimal diabetes control. 8. Optimal edema control. 9. Follow up labs and cultures. 10. Continue supportive care. EH BASS MD May 09, 2021 08:51
[2021-05-09] MEDS: ASCORBIC ACID 500 MG TABLET PO SCH (09:04)
[2021-05-09] MEDS: ASPIRIN ENTERIC COATED 81 MG TABLET.DR. PO SCH (09:04)
[2021-05-09] MEDS: LACTOBACILLUS RHAMNOSUS GG 1 CAPSULE. PO SCH ×2 (09:04→21:48)
[2021-05-09] MEDS: MULTIVITAMIN I-VITE TABLET. PO SCH (09:09)
[2021-05-09] MEDS ORDERED: LIDOCAINE 2% TOPICAL JELLY 30GM TUBE. TP ONE (09:30)
--- NOTE | 2021-05-09 10:13 | PDOC ---
[employer] PROGRESS NOTE Date of Service DOS: DATE: 05/09/21 TIME: 10:08 Chief Complaint Chief Complaint CC: bilateral LE cellulitis, elevated troponin I BL LE cellulitis Elevated troponin I (0.265) Newly diagnosed diabetes, type 2 ANDREEA Hyponatremia, resolved PVD Left great toe diabetic ulcer HTN H/o colon cancer in 2011 History of Present Illness History of Present Illness 05/09/21 Patient seen and examined Patient in bed, alert, NAD Afebrile Clean dry intact dressing on bilateral LE Discussed with RN 05/08/21 Patient seen and examined Patient in bed, alert, NAD Afebrile Clean dry intact dressing on bilateral LE Run of PVCs on residential monitor during exam Patient denies palpitations, chest pain, dyspnea Discussed with RN Vitals/I&O Vitals/I&O: Vital Signs Date Time Temp Pulse Resp B/P (MAP) Pulse Ox O2 Delivery O2 Flow Rate FiO2 05/09/21 09:50 92 Room Air 05/09/21 09:00 102 138/89 05/09/21 07:49 97.8 20 97.8 I & O 05/08/21 05/08/21 05/09/21 15:00 23:00 07:00 Intake Total 1520 ml 420 ml 200 ml Output Total 310 ml 675 ml Balance 1210 ml 420 ml -475 ml Physical Exam Physical Exam: GENERAL: Alert, oriented x 3 male in no acute distress, nontoxic appearing. HEENT: Normocephalic, atraumatic. Anicteric. No thrush. Dentition poor. NECK: Supple, no JVD. LUNGS: Clear. HEART: S1, S2. No murmurs. ABDOMEN: Soft, nontender, nondistended. EXTREMITIES: Bilateral lower extremity dressing in place, intact, not taken down. DERM: Wound pictures noted in chart. The patient has bilateral lower extremity excoriation in the thigh. Bilateral foot callus, left toe greater than right toe. Right lower extremity wounds with ulceration noted numerous. No gross purulence noted. Edema present. LUE PICC line clean General: Alert, Oriented X3, Cooperative, No acute distress Heart: Regular rate, Normal S1, Normal S2, No murmurs Lungs: Clear Abdomen: Normal bowel sounds, Soft, No tenderness Extremities: No cyanosis, Normal pulses, Other (Palpable pulse exam bilaterally with normal dorsalis pedis pulses, normal sounding posterior tibial Doppler signals, palpable femoral and popliteal pulses bilaterally) Skin: Other ( BILATERAL LWER EXT EXCORIATIONS, CELLULITIS. Left great toe small ulcer ) Labs Labs: Laboratory Tests Test 05/08/21 11:39 05/08/21 17:14 05/08/21 19:00 05/08/21 21:04 Glucose (Fingerstick) 259 mg/dL (70-99) 233 mg/dL (70-99) 251 mg/dL (70-99) Urine Collection Type Unknown Urine Color Donya Urine Clarity Cloudy Urine pH 5.0 (<5.0-8.0) Urine Specific [place] 1.025 (1.000-1.030) Urine Protein 100 mg/dL (NEG-TRACE) Urine Glucose (UA) 250 mg/dL (NEG) Urine Ketones (Stick) Trace mg/dL (NEG) Urine Blood Negative (NEG) Urine Nitrite Negative (NEG) Urine Bilirubin Negative (NEG) Urine Urobilinogen Dipstick 0.2 mg/dL (0.2 mg/dL) Urine Leukocyte Esterase Negative (NEG) Urine RBC 0 /HPF (0-2) Urine WBC Occ /HPF (0-4) Urine Squamous Epithelial Cells Occ /LPF Urine Amorphous Sediment Present /HPF Urine Bacteria 0 /HPF (0-FEW) Urine Granular Casts Few /HPF Urine Mucus Slight /LPF Test 05/09/21 03:40 05/09/21 07:51 White Blood Count 10.8 x10^3/uL (4.0-11.0) Red Blood Count 5.19 x10^6/uL (4.30-5.70) Hemoglobin 14.2 g/dL (13.0-17.5) Hematocrit 43.6 % (39.0-53.0) Mean Corpuscular Volume 84 fL (79-100) Mean Corpuscular Hemoglobin 27 pg (25-35) Mean Corpuscular Hemoglobin Concent 33 g/dL (31-37) Red Cell Distribution Width 16.1 % (11.5-14.5) Platelet Count 357 x10^3/uL (140-400) Neutrophils (%) (Auto) 83 % (31-73) Lymphocytes (%) (Auto) 8 % (24-48) Monocytes (%) (Auto) 7 % (0-9) Eosinophils (%) (Auto) 3 % (0-3) Basophils (%) (Auto) 0 % (0-3) Neutrophils # (Auto) 8.9 x10^3/uL (1.8-7.7) Lymphocytes # (Auto) 0.8 x10^3/uL (1.0-4.8) Monocytes # (Auto) 0.7 x10^3/uL (0.0-1.1) Eosinophils # (Auto) 0.3 x10^3/uL (0.0-0.7) Basophils # (Auto) 0.0 x10^3/uL (0.0-0.2) Sodium Level 136 mmol/L (136-145) Potassium Level 3.6 mmol/L (3.5-5.1) Chloride Level 101 mmol/L (98-107) Carbon Dioxide Level 22 mmol/L (21-32) Anion Gap 13 (6-14) Blood Urea Nitrogen 55 mg/dL (8-26) Creatinine 2.4 mg/dL (0.7-1.3) Estimated GFR (Cockcroft-Gault) 27.8 Glucose Level 158 mg/dL (70-99) Calcium Level 8.4 mg/dL (8.5-10.1) Glucose (Fingerstick) 141 mg/dL (70-99) Review of Systems Review of Systems: CONSTITUTIONAL: No fever or chills CARDIOVASCULAR: No chest pain, no palpitations, no chest pressure RESPIRATORY: No shortness of breath, cough GI: No nausea, vomiting, or diarrhea, abdominal pain NEURO: No headache, dizziness Assessment and Plan Assessmemt and Plan ASSESSMENT BL LE cellulitis Elevated troponin I (0.265) Newly diagnosed diabetes, type 2 ANDREEA Hyponatremia, resolved PVD Left great toe diabetic ulcer HTN H/o colon cancer in 2012 PLAN Cardiac monitoring Antibiotic therapy May need renal dosing for Zosyn pending nephrology Follow blood cultures Trend labs PT/OT Wound care Appreciate wound care Appreciate subspecialist input DVT prophylaxis Full code Comment Review of Relevant I have reviewed the following items rosa (where applicable) has been applied. Medications: Current Medications Medications (Trade) Dose Ordered Sig/Mata Route PRN Reason Start Time Stop Time Status Last Admin Dose Admin Daptomycin 570 mg/ Sodium Chloride 50 ml @ 100 mls/hr Q24H IV 05/08/21 11:00 05/08/21 12:29 Multivitamins/ Minerals (I-Eliazar) 1 tab DAILY PO 05/08/21 15:00 05/09/21 09:09 Ascorbic Acid (Vitamin C) 500 mg DAILY PO 05/08/21 15:00 05/09/21 09:04 Aspirin (Ecotrin) 81 mg DAILYWBKFT PO 05/09/21 08:00 05/09/21 09:04 Justifications for Admission General Conditions Abnormal capillary refill?: Yes Justification for admission: Patient has tachycardia (> 100 beats per minute) or hypotension (SBP < 90 mm Hg) leading to inadequate systemic perfusion as indicated by new abnormal capillary refill of greater than 3 seconds. Other justification for admit: severe pvd Other Justification RADHA BROWN III DO May 09, 2021 10:13
--- NOTE | 2021-05-09 10:27 | CARD ---
MR#: [id number] Date of Study: 05/08/2021 Ordering Physician: ALICE LINDSAY, Referring Physician: ALICE LINDSAY, Tech: Darlyn Elizabethjuan jose, [facility] APPROVED REPORT EXAM: Two-dimensional and M-mode echocardiogram with Doppler and color Doppler. Other Information Quality : AverageHR: 118bpm INDICATION Elevated Troponin RISK FACTORS Diabetes 2D DIMENSIONS RVDd4.2 (2.9-3.5cm)Left Atrium(2D)4.5 (1.6-4.0cm) IVSd0.9 (0.7-1.1cm)Aortic Root(2D)3.2 (2.0-3.7cm) LVDd5.9 (3.9-5.9cm)LVOT Diameter2.1 (1.8-2.4cm) PWd1.1 (0.7-1.1cm)LVDs5.0 (2.5-4.0cm) FS (%) 15.1 %SV54.9 ml LVEF(%)31.4 (>50%) Aortic Valve AoV Peak Ronnie.109.1cm/sAoV VTI13.9cm AO Peak GR.4.8mmHgLVOT Peak Ronnie.81.6cm/s LVOT VTI 10.08cmAO Mean GR.3mmHg SELVIN (VMAX)1.52rk1TYH (VTI)2.50cm2 Mitral Valve MV E Peak Gr.87mmHgMV E Mean Gr.2mmHg Pulmonary Valve PV Peak Bqgymnzi97.6cm/sPV Peak Grad.3mmHg Tricuspid Valve TR P. Zvqmzgan283dm/sRAP [id number] TR Peak Gr.[id number] Pulmonary Vein S1 Tdvkainr31.6cm/sD2 Htvunspi48.5cm/s LEFT VENTRICLE The Left Ventricle is mildly dilated. There is normal left ventricular wall thickness. The left ventr icular systolic function is severely diminished The ejection fraction is estimated at 20-25%. There i s global hypokinesis of the left ventricle. No left ventricle thrombus noted on this study. RIGHT VENTRICLE The right ventricle is mildly dilated. Systolic function is mildly reduced. ATRIA The left atrium is mildly dilated. The right atrium size is normal. The interatrial septum is intact with no evidence for an atrial septal defect or patent foramen ovale as noted on 2-D or Doppler imagi ng. AORTIC VALVE The aortic valve is normal in structure and function. Doppler and Color Flow revealed trace aortic re gurgitation. There is no significant aortic valvular stenosis. Calculated aortic valve area is 2.36 c m2 with maximum pressure gradient of 6 mmHg and mean pressure gradient of 3 mmHg. MITRAL VALVE The mitral valve is normal in structure and function. There is no evidence of mitral valve prolapse. There is no mitral valve stenosis. Doppler and Color-flow revealed trace mitral regurgitation. TRICUSPID VALVE The tricuspid valve is normal in structure and function. Doppler and Color Flow revealed mild tricusp id regurgitation with an estimated PAP of 43 mmHg. There is no tricuspid valve stenosis. PULMONIC VALVE The pulmonic valve is not well visualized. Doppler and Color Flow revealed trace pulmonic valvular re gurgitation. GREAT VESSELS The aortic root is normal in size. The IVC is normal in size and collapses >50% with inspiration. PERICARDIAL EFFUSION There is no evidence of significant pericardial effusion. Critical Notification Critical Value: No <Conclusion> The left ventricular systolic function is severely diminished The ejection fraction is estimated at 20-25%. There is global hypokinesis of the left ventricle. Trace mitral regurgitation. Mild tricuspid regurgitation with an estimated PAP of 43 mmHg. There is no evidence of significant pericardial effusion. Signed by : Bijan Theodore, Electronically Approved : 05/09/2021 10:27:00
--- NOTE | 2021-05-09 10:45 | PDOC ---
PROGRESS NOTES Date of Service: DATE: 05/09/21 TIME: 10:45 Subjective Subjective Denied any CP or orthopnea Objective Objective Vital Signs Date Time Temp Pulse Resp B/P (MAP) Pulse Ox O2 Delivery O2 Flow Rate FiO2 05/09/21 09:50 92 Room Air 05/09/21 09:00 102 138/89 05/09/21 07:49 97.8 20 97.8 Intake and Output 05/09/21 07:00 Intake Total 2140 ml Output Total 985 ml Balance 1155 ml Intake Oral 990 ml IV Total 1150 ml Output Urine Total 985 ml Physical Exam Abdomen: Normal bowel sounds, Soft, No tenderness Heart: Regular rate, Normal S1, Normal S2, No murmurs Extremities: No cyanosis, Other (Palpable pulse exam bilaterally with normal dorsalis pedis pulses, normal sounding posterior tibial Doppler signals, palpable femoral and popliteal pulses bilaterally) General: Alert, Oriented X3, Cooperative, No acute distress HEENT: Atraumatic, PERRLA, EOMI, Mucous membr. moist/pink Lungs: Clear to auscultation, Normal air movement MUSCULOSKELETAL: No deformity Neuro: Normal speech Psych/Mental Status: Mental status NL, Mood NL Skin: Other ( BILATERAL LWER EXT EXCORIATIONS, CELLULITIS. Left great toe small ulcer ) Assessment Assessment 1. LE cellulitis: Continue IV antibiotics. ID following 2. Lactic acidosis: improving 3. Acute on chr renal insuff: per IM. Consider nephrology consultation. 4. Uncontrolled diabetes, II; as per IM 5. Mild troponin elevation; highest 0.28. Most probably type II, demand ischemia in setting of above. CP free. 2D echo showed EF 20-25%. CXR does not show any overt fluid overload. If nephrology thinks that the prerenal picture is from low cardiac output, we will consider IV milrinone. Plan ischemic evaluation once cellulitis resolves, possibly as outpatient 6. Sinus tachycardia, reactive to above. improved 7. Hypertensive urgency; now controlled. 8. PAD; arterial duplex with occlusion of left peroneal artery. No major vascular stenosis above the knee - manage conservatively per vascular team 9. Arrhythmia; burst of 6-beat NSVT noted on tele at [facility].None further 10. Noncompliance Comment Review of Relevant I have reviewed the following items rosa (where applicable) has been applied. Labs Laboratory Tests Test 05/08/21 11:39 05/08/21 17:14 05/08/21 19:00 05/08/21 21:04 Glucose (Fingerstick) 259 mg/dL (70-99) 233 mg/dL (70-99) 251 mg/dL (70-99) Urine Collection Type Unknown Urine Color Donya Urine Clarity Cloudy Urine pH 5.0 (<5.0-8.0) Urine Specific [place] 1.025 (1.000-1.030) Urine Protein 100 mg/dL (NEG-TRACE) Urine Glucose (UA) 250 mg/dL (NEG) Urine Ketones (Stick) Trace mg/dL (NEG) Urine Blood Negative (NEG) Urine Nitrite Negative (NEG) Urine Bilirubin Negative (NEG) Urine Urobilinogen Dipstick 0.2 mg/dL (0.2 mg/dL) Urine Leukocyte Esterase Negative (NEG) Urine RBC 0 /HPF (0-2) Urine WBC Occ /HPF (0-4) Urine Squamous Epithelial Cells Occ /LPF Urine Amorphous Sediment Present /HPF Urine Bacteria 0 /HPF (0-FEW) Urine Granular Casts Few /HPF Urine Mucus Slight /LPF Test 05/09/21 03:40 05/09/21 07:51 White Blood Count 10.8 x10^3/uL (4.0-11.0) Red Blood Count 5.19 x10^6/uL (4.30-5.70) Hemoglobin 14.2 g/dL (13.0-17.5) Hematocrit 43.6 % (39.0-53.0) Mean Corpuscular Volume 84 fL (79-100) Mean Corpuscular Hemoglobin 27 pg (25-35) Mean Corpuscular Hemoglobin Concent 33 g/dL (31-37) Red Cell Distribution Width 16.1 % (11.5-14.5) Platelet Count 357 x10^3/uL (140-400) Neutrophils (%) (Auto) 83 % (31-73) Lymphocytes (%) (Auto) 8 % (24-48) Monocytes (%) (Auto) 7 % (0-9) Eosinophils (%) (Auto) 3 % (0-3) Basophils (%) (Auto) 0 % (0-3) Neutrophils # (Auto) 8.9 x10^3/uL (1.8-7.7) Lymphocytes # (Auto) 0.8 x10^3/uL (1.0-4.8) Monocytes # (Auto) 0.7 x10^3/uL (0.0-1.1) Eosinophils # (Auto) 0.3 x10^3/uL (0.0-0.7) Basophils # (Auto) 0.0 x10^3/uL (0.0-0.2) Sodium Level 136 mmol/L (136-145) Potassium Level 3.6 mmol/L (3.5-5.1) Chloride Level 101 mmol/L (98-107) Carbon Dioxide Level 22 mmol/L (21-32) Anion Gap 13 (6-14) Blood Urea Nitrogen 55 mg/dL (8-26) Creatinine 2.4 mg/dL (0.7-1.3) Estimated GFR (Cockcroft-Gault) 27.8 Glucose Level 158 mg/dL (70-99) Calcium Level 8.4 mg/dL (8.5-10.1) Glucose (Fingerstick) 141 mg/dL (70-99) Microbiology 05/07/21 Blood Culture - Preliminary, Resulted NO GROWTH AFTER 1 DAY Medications Current Medications Ascorbic Acid (Vitamin C) 500 mg DAILY PO Last administered on 05/09/21at 09:04; Start 05/08/21 at 15:00 Aspirin (Ecotrin) 81 mg DAILYWBKFT PO Last administered on 05/09/21at 09:04; Start 05/09/21 at 08:00 Daptomycin 570 mg/ Sodium Chloride 50 ml @ 100 mls/hr Q24H IV Last administered on 05/08/21at 12:29; Start 05/08/21 at 11:00 Lidocaine HCl (Xylocaine 2% Topical 30gm Tube) 1 rowdy 1X ONCE TP ; Start 05/09/21 at 09:30; Stop 05/09/21 at 09:35; Status DC Multivitamins/ Minerals (I-Eliazar) 1 tab DAILY PO Last administered on 05/09/21at 09:09; Start 05/08/21 at 15:00 Vitals/I & O Vital Sign - Last 24 Hours 05/08/21 05/08/21 05/08/21 05/08/21 15:00 15:11 15:41 19:24 Temp 97.8 97.8 Pulse 110 Resp 22 20 20 16 B/P (MAP) 136/99 (111) Pulse Ox 95 95 95 95 O2 Delivery Room Air Room Air Room Air Room Air 05/08/21 05/08/21 05/08/21 05/08/21 19:54 19:54 19:59 23:59 Temp 98.1 98.8 98.1 98.8 Pulse 106 101 Resp 20 16 18 B/P (MAP) 136/86 (103) 123/79 (94) Pulse Ox 93 92 93 O2 Delivery Room Air Room Air Room Air Room Air 05/09/21 05/09/21 05/09/21 05/09/21 03:18 06:03 07:49 08:00 Temp 97.8 97.8 97.8 97.8 Pulse 101 102 Resp 20 16 20 B/P (MAP) 124/93 (103) 138/89 (105) Pulse Ox 92 92 92 O2 Delivery Room Air Room Air Room Air Room Air 05/09/21 05/09/21 05/09/21 08:59 09:00 09:50 Pulse 102 B/P (MAP) 138/89 Pulse Ox 92 92 O2 Delivery Room Air Room Air Intake and Output 05/08/21 05/08/21 05/09/21 15:00 23:00 07:00 Intake Total 1520 ml 420 ml 200 ml Output Total 310 ml 675 ml Balance 1210 ml 420 ml -475 ml MAYNOR WOLFE MD May 09, 2021 10:45
[2021-05-09] MEDS ORDERED: diphenhydrAMINE 50 MG/ML VIAL IVP PRN (11:15)
[2021-05-09] MEDS ORDERED: diphenhydrAMINE HCL 25 MG CAPSULE PO PRN (11:15)
[2021-05-09 11:31] VITALS: BP 173/103
[2021-05-09] MEDS: DAPTOmycin (GENERIC) IVPB 570 MG in IV NORMAL SALINE 50ML 50 ML IV SCH (12:20)
[2021-05-09 15:00] VITALS: BP 180/108
--- NOTE | 2021-05-09 15:06 | NUR ---
Wound Care Wound Type/Assessment: patient seen per wound care consult. see wound assessment. patient has bilateral great toe DFU, that are closed dark calloused area. patient also has bilateral lower leg cellulitis, the areas to bilateral legs are weeping with a moderate yellow drainage, the legs have a dark red appearance in some areas with multiple areas of yellow slough, both legs area edematous. Bilateral great toe wounds were cleaned, measured, pictured and redressed with recommendations of Xeroform gauze with a non adhesive foam and tape. bilateral lower legs were cleaned, measured and redressed with recommendations of therahoney gel with Aquacel ag with abd pads, Kerlix and tape. patients legs elevated with pillows at this time. Treatment Recommendations/Plan: Recommendations for the great toe wounds: cleanse wound, apply medihoney and aquacel ag secure with gauze, change every 2-3 days. Recommendations for bilateral lower legs: cleanse the wounds then apply therahoney gel to the yellow slough areas then apply Aquacel ag over with briefs, Kerlix and tape, then size G medigrips. change every other day. Patient needs to elevate bilateral lower legs with pillows. Education provided: Educated patient on the dressings. Recommendations: Dr Vincent debrided all wounds, will return Wednesday for another debridement Discharge Recommendations for dressings: Wound Care will continue to f/u.
--- NOTE | 2021-05-09 15:07 | PDOC2 ---
CONSULT Date of Consult Date of Consult DATE: 05/09/21 TIME: 14:51 Reason for Consult Reason for Consult: Bilateral lower extremity wounds Referring Physician Referring Physician: Dr. Carroll Identification/Chief Complaint Chief Complaint 60-year-old patient seen for bilateral lower extremity wounds. Wounding significantly complicated by bilateral lower extremity cellulitis. Prominent serosanguineous drainage noted from both wounds. Enlarging ulcerations involving feet and primarily anterior lower leg distribution. He suggests that there has been improvement in edema and redness since recent admission and IV an tibiotic therapy. He denies calf pain, increased shortness of breath or chest pain. Recent past medical history includes diabetes. He has been evaluated by vascular surgery with no intervention needed at this time. Source Source: Chart review, Patient History of Present Illness Reason for Visit: Bilateral lower extremity cellulitis with ulceration Past Medical History Cardiovascular: HTN Endocrine: Diabetes Dermatology: Eczema, Cellulitis Past Surgical History Past Surgical History: Cholecystectomy, Colon Resection Family History Family History: Diabetes, Hypertension Social History Social History: Parent No ALCOHOL: none Drugs: None Lives: Alone Domestic Violence: Neg Current Medications Current Medications Current Medications Sodium Chloride (Normal Saline Flush) 3 ml QSHIFT PRN IV AFTER MEDS AND BLOOD DRAWS; Start 05/07/21 at 15:15 Sodium Chloride 1,000 ml @ 75 mls/hr [id number] IV ; Start 05/07/21 at 15:15; Stop 05/07/21 at 17:48; Status DC Ondansetron HCl (Zofran) 4 mg PRN Q4HRS PRN IV NAUSEA/VOMITING; Start 05/07/21 at 15:15 Acetaminophen (Tylenol) 650 mg PRN Q4HRS PRN PO TEMP OVER 100.4F OR MILD PAIN Last administered on 05/08/21at 15:11; Start 05/07/21 at 15:15 Al Hydroxide/Mg Hydroxide (Mylanta Plus Xs) 30 ml PRN DAILY PRN PO HEARTBURN / GAS; Start 05/07/21 at 15:15 Docusate Sodium (Colace) 100 mg PRN BID PRN PO HARD STOOLS; Start 05/07/21 at 15:15 Albuterol Sulfate (Ventolin Neb Soln) 2.5 mg PRN Q4HRS PRN NEB SHORTNESS OF BREATH; Start 05/07/21 at 15:15 Guaifenesin (Robitussin) 200 mg PRN Q4HRS PRN PO COUGH; Start 05/07/21 at 15:15 Enoxaparin Sodium (Lovenox 40mg Syringe) 40 mg Q24H SQ Last administered on 04/24 03/14at 21:06; Start 05/07/21 at 21:00 Insulin Human Lispro (HumaLOG) 0-9 UNITS TIDWMEALS SQ Last administered on 05/09/21at 14:27; Start 05/07/21 at 17:30 Dextrose (Dextrose 50%-Water Syringe) 12.5 gm PRN Q15MIN PRN IV SEE COMMENTS; Start 05/07/21 at 17:15; Status Cancel Sodium Chloride 1,000 ml @ 150 mls/hr Q6H40M IV Last administered on 05/09/21at 09:06; Start 05/07/21 at 17:15 Lactobacillus Rhamnosus (Culturelle) 1 cap BID PO Last administered on 05/09/21at 09:04; Start 05/07/21 at 21:00 Morphine Sulfate (Morphine Sulfate) 4 mg PRN Q2HR PRN IV PAIN Last administered on 05/09/21at 14:18; Start 05/07/21 at 17:15 Nifedipine (Procardia Xl) 30 mg DAILY PO Last administered on 05/09/21at 09:00; Start 05/08/21 at 09:00 Piperacillin Sod/ Tazobactam Sod (Zosyn Per Pharmacy) 1 each PRN DAILY PRN MC SEE COMMENTS; Start 05/07/21 at 17:15 Piperacillin Sod/ Tazobactam Sod 3.375 gm/Sodium Chloride 50 ml @ 100 mls/hr Q6HRS IV Last administered on 05/09/21at 14:21; Start 05/07/21 at 18:00 Vancomycin HCl (Vanco Per Pharmacy) 1 each PRN DAILY PRN MC SEE COMMENTS; Start 05/07/21 at 17:15; Stop 05/07/21 at 17:50; Status DC Vancomycin HCl 1.75 gm/Sodium Chloride 500 ml @ 250 mls/hr Q12H IV ; Start 05/07/21 at 20:00; Stop 05/07/21 at 17:48; Status DC Zolpidem Tartrate (Ambien) 5 mg PRN QHS PRN PO INSOMNIA Last administered on 05/09/21at 00:16; Start 05/07/21 at 17:15 Insulin Glargine (Lantus Syringe) 10 unit QHS SQ Last administered on 05/08/21at 21:09; Start 05/07/21 at 21:00 Insulin Human Lispro (HumaLOG) 0-5 UNITS TIDWMEALS SQ ; Start 05/08/21 at 08:00; Status Cancel Dextrose (Dextrose 50%-Water Syringe) 12.5 gm PRN Q15MIN PRN IV SEE COMMENTS; Start 05/07/21 at 18:00 Daptomycin 570 mg/ Sodium Chloride 50 ml @ 100 mls/hr Q24H IV Last administered on 05/09/21at 12:20; Start 05/08/21 at 11:00 Multivitamins/ Minerals (I-Eliazar) 1 tab DAILY PO Last administered on 05/09/21at 09:09; Start 05/08/21 at 15:00 Ascorbic Acid (Vitamin C) 500 mg DAILY PO Last administered on 05/09/21at 09:04; Start 05/08/21 at 15:00 Aspirin (Ecotrin) 81 mg DAILYWBKFT PO Last administered on 05/09/21at 09:04; Start 05/09/21 at 08:00 Lidocaine HCl (Xylocaine 2% Topical 30gm Tube) 1 rowdy 1X ONCE TP Last administered on 05/09/21at 14:14; Start 05/09/21 at 09:30; Stop 05/09/21 at 09:35; Status DC Diphenhydramine HCl (Benadryl) 25 mg PRN Q6HRS PRN IVP ITCHING Last administered on 05/09/21at 12:16; Start 05/09/21 at 11:15 Diphenhydramine HCl (Benadryl) 25 mg PRN Q6HRS PRN PO ITCHING; Start 05/09/21 at 11:15 Allergies Allergies: Coded Allergies: No Known Drug Allergies (Unverified , 05/07/21) ROS Review of System Review of systems negative except as reported below General: YES: Fatigue Musculoskeletal: Yes Swelling In: (Bilateral lower extremities with associated erythema) Neurological: Yes Other (He is aware of modest decrease in sensation to the plantar surfaces.) Skin: Yes Dry Skin, Yes Eczema, Yes Rash (Rash to the lower extremity of longstanding duration. He is aware of pruritic sensation to the legs as well.), Yes Other (Enlarging lower extremity ulcerations noted bilaterally associated with marked worsened erythema) Physical Exam General: Alert, Oriented X3, Cooperative HEENT: Atraumatic, PERRLA, EOMI, Mucous membr. moist/pink Lungs: Clear to auscultation, Normal air movement Heart: Regular rate Abdomen: Soft, No tenderness Extremities: No cyanosis, Other (1+ edema identified bilaterally right worse than left) Skin: Other (Extensive superficial ulcerations bilateral lower extremities with sites of necrotic large ulcerations with 3 mm of depth. The left great toe demonstrates a Montes 1 ulceration with skin breakdown only and foot dorsum bilaterally shows unspecified severity diabetic ulcerations) Neuro: Normal speech, Other (Decreased sensation plantar surface bilaterally, wide stance gait is noted) Psych/Mental Status: Mental status NL MUSCULOSKELETAL: Not examined Vitals VITALS Vital Signs Date Time Temp Pulse Resp B/P (MAP) Pulse Ox O2 Delivery O2 Flow Rate FiO2 05/09/21 14:28 94 Room Air 05/09/21 11:31 97.9 102 20 173/103 (126) 97.9 Labs Labs Laboratory Tests Test 05/07/21 16:17 05/07/21 17:15 05/07/21 18:30 05/07/21 19:42 Glucose (Fingerstick) 253 mg/dL (70-99) 267 mg/dL (70-99) 295 mg/dL (70-99) White Blood Count 12.9 x10^3/uL (4.0-11.0) Red Blood Count 5.37 x10^6/uL (4.30-5.70) Hemoglobin 14.6 g/dL (13.0-17.5) Hematocrit 44.8 % (39.0-53.0) Mean Corpuscular Volume 84 fL (79-100) Mean Corpuscular Hemoglobin 27 pg (25-35) Mean Corpuscular Hemoglobin Concent 33 g/dL (31-37) Red Cell Distribution Width 16.0 % (11.5-14.5) Platelet Count 344 x10^3/uL (140-400) Neutrophils (%) (Auto) 89 % (31-73) Lymphocytes (%) (Auto) 6 % (24-48) Monocytes (%) (Auto) 4 % (0-9) Eosinophils (%) (Auto) 1 % (0-3) Basophils (%) (Auto) 0 % (0-3) Neutrophils # (Auto) 11.5 x10^3/uL (1.8-7.7) Lymphocytes # (Auto) 0.8 x10^3/uL (1.0-4.8) Monocytes # (Auto) 0.5 x10^3/uL (0.0-1.1) Eosinophils # (Auto) 0.1 x10^3/uL (0.0-0.7) Basophils # (Auto) 0.0 x10^3/uL (0.0-0.2) Segmented Neutrophils % 74 % (35-66) Band Neutrophils % 18 % (0-9) Lymphocytes % 3 % (24-48) Monocytes % 3 % (0-10) Eosinophils % 2 % (0-5) Dohle Bodies Present Platelet Estimate Adequate (ADEQUATE) Sodium Level 132 mmol/L (136-145) Potassium Level 4.5 mmol/L (3.5-5.1) Chloride Level 97 mmol/L (98-107) Carbon Dioxide Level 25 mmol/L (21-32) Anion Gap 10 (6-14) Blood Urea Nitrogen 46 mg/dL (8-26) Creatinine 2.0 mg/dL (0.7-1.3) Estimated GFR (Cockcroft-Gault) 34.3 BUN/Creatinine Ratio 23 (6-20) Glucose Level 235 mg/dL (70-99) Hemoglobin A1c 11.7 % (4.8-5.6) Calcium Level 8.7 mg/dL (8.5-10.1) Total Bilirubin 1.0 mg/dL (0.2-1.0) Aspartate Amino Transf (AST/SGOT) 30 U/L (15-37) Alanine Aminotransferase (ALT/SGPT) 34 U/L (16-63) Alkaline Phosphatase 142 U/L (46-116) Total Protein 6.5 g/dL (6.4-8.2) Albumin 2.0 g/dL (3.4-5.0) Albumin/Globulin Ratio 0.4 (1.0-1.7) Test 05/07/21 20:10 05/07/21 20:49 05/08/21 07:20 05/08/21 07:33 Sodium Level 132 mmol/L (136-145) Potassium Level 4.5 mmol/L (3.5-5.1) Chloride Level 100 mmol/L (98-107) Carbon Dioxide Level 23 mmol/L (21-32) Anion Gap 9 (6-14) Blood Urea Nitrogen 51 mg/dL (8-26) Creatinine 2.1 mg/dL (0.7-1.3) Estimated GFR (Cockcroft-Gault) 32.4 Glucose Level 292 mg/dL (70-99) Calcium Level 8.6 mg/dL (8.5-10.1) Glucose (Fingerstick) 257 mg/dL (70-99) 226 mg/dL (70-99) Vancomycin Level Trough 18.3 mcg/mL (10.0-20.0) Vancomycin Last Dose Date 05/07/21 Vancomycin Last Dose Time 0800 Test 05/08/21 11:39 05/08/21 17:14 05/08/21 19:00 05/08/21 21:04 Glucose (Fingerstick) 259 mg/dL (70-99) 233 mg/dL (70-99) 251 mg/dL (70-99) Urine Collection Type Unknown Urine Color Donya Urine Clarity Cloudy Urine pH 5.0 (<5.0-8.0) Urine Specific [place] 1.025 (1.000-1.030) Urine Protein 100 mg/dL (NEG-TRACE) Urine Glucose (UA) 250 mg/dL (NEG) Urine Ketones (Stick) Trace mg/dL (NEG) Urine Blood Negative (NEG) Urine Nitrite Negative (NEG) Urine Bilirubin Negative (NEG) Urine Urobilinogen Dipstick 0.2 mg/dL (0.2 mg/dL) Urine Leukocyte Esterase Negative (NEG) Urine RBC 0 /HPF (0-2) Urine WBC Occ /HPF (0-4) Urine Squamous Epithelial Cells Occ /LPF Urine Amorphous Sediment Present /HPF Urine Bacteria 0 /HPF (0-FEW) Urine Granular Casts Few /HPF Urine Mucus Slight /LPF Test 05/09/21 03:40 05/09/21 07:51 05/09/21 11:27 White Blood Count 10.8 x10^3/uL (4.0-11.0) Red Blood Count 5.19 x10^6/uL (4.30-5.70) Hemoglobin 14.2 g/dL (13.0-17.5) Hematocrit 43.6 % (39.0-53.0) Mean Corpuscular Volume 84 fL (79-100) Mean Corpuscular Hemoglobin 27 pg (25-35) Mean Corpuscular Hemoglobin Concent 33 g/dL (31-37) Red Cell Distribution Width 16.1 % (11.5-14.5) Platelet Count 357 x10^3/uL (140-400) Neutrophils (%) (Auto) 83 % (31-73) Lymphocytes (%) (Auto) 8 % (24-48) Monocytes (%) (Auto) 7 % (0-9) Eosinophils (%) (Auto) 3 % (0-3) Basophils (%) (Auto) 0 % (0-3) Neutrophils # (Auto) 8.9 x10^3/uL (1.8-7.7) Lymphocytes # (Auto) 0.8 x10^3/uL (1.0-4.8) Monocytes # (Auto) 0.7 x10^3/uL (0.0-1.1) Eosinophils # (Auto) 0.3 x10^3/uL (0.0-0.7) Basophils # (Auto) 0.0 x10^3/uL (0.0-0.2) Sodium Level 136 mmol/L (136-145) Potassium Level 3.6 mmol/L (3.5-5.1) Chloride Level 101 mmol/L (98-107) Carbon Dioxide Level 22 mmol/L (21-32) Anion Gap 13 (6-14) Blood Urea Nitrogen 55 mg/dL (8-26) Creatinine 2.4 mg/dL (0.7-1.3) Estimated GFR (Cockcroft-Gault) 27.8 Glucose Level 158 mg/dL (70-99) Calcium Level 8.4 mg/dL (8.5-10.1) Creatine Kinase 192 U/L (39-308) Glucose (Fingerstick) 141 mg/dL (70-99) 222 mg/dL (70-99) Laboratory Tests Test 05/08/21 17:14 05/08/21 19:00 05/08/21 21:04 05/09/21 03:40 Glucose (Fingerstick) 233 mg/dL (70-99) 251 mg/dL (70-99) Urine Collection Type Unknown Urine Color Donya Urine Clarity Cloudy Urine pH 5.0 (<5.0-8.0) Urine Specific [place] 1.025 (1.000-1.030) Urine Protein 100 mg/dL (NEG-TRACE) Urine Glucose (UA) 250 mg/dL (NEG) Urine Ketones (Stick) Trace mg/dL (NEG) Urine Blood Negative (NEG) Urine Nitrite Negative (NEG) Urine Bilirubin Negative (NEG) Urine Urobilinogen Dipstick 0.2 mg/dL (0.2 mg/dL) Urine Leukocyte Esterase Negative (NEG) Urine RBC 0 /HPF (0-2) Urine WBC Occ /HPF (0-4) Urine Squamous Epithelial Cells Occ /LPF Urine Amorphous Sediment Present /HPF Urine Bacteria 0 /HPF (0-FEW) Urine Granular Casts Few /HPF Urine Mucus Slight /LPF White Blood Count 10.8 x10^3/uL (4.0-11.0) Red Blood Count 5.19 x10^6/uL (4.30-5.70) Hemoglobin 14.2 g/dL (13.0-17.5) Hematocrit 43.6 % (39.0-53.0) Mean Corpuscular Volume 84 fL (79-100) Mean Corpuscular Hemoglobin 27 pg (25-35) Mean Corpuscular Hemoglobin Concent 33 g/dL (31-37) Red Cell Distribution Width 16.1 % (11.5-14.5) Platelet Count 357 x10^3/uL (140-400) Neutrophils (%) (Auto) 83 % (31-73) Lymphocytes (%) (Auto) 8 % (24-48) Monocytes (%) (Auto) 7 % (0-9) Eosinophils (%) (Auto) 3 % (0-3) Basophils (%) (Auto) 0 % (0-3) Neutrophils # (Auto) 8.9 x10^3/uL (1.8-7.7) Lymphocytes # (Auto) 0.8 x10^3/uL (1.0-4.8) Monocytes # (Auto) 0.7 x10^3/uL (0.0-1.1) Eosinophils # (Auto) 0.3 x10^3/uL (0.0-0.7) Basophils # (Auto) 0.0 x10^3/uL (0.0-0.2) Sodium Level 136 mmol/L (136-145) Potassium Level 3.6 mmol/L (3.5-5.1) Chloride Level 101 mmol/L (98-107) Carbon Dioxide Level 22 mmol/L (21-32) Anion Gap 13 (6-14) Blood Urea Nitrogen 55 mg/dL (8-26) Creatinine 2.4 mg/dL (0.7-1.3) Estimated GFR (Cockcroft-Gault) 27.8 Glucose Level 158 mg/dL (70-99) Calcium Level 8.4 mg/dL (8.5-10.1) Creatine Kinase 192 U/L (39-308) Test 05/09/21 07:51 05/09/21 11:27 Glucose (Fingerstick) 141 mg/dL (70-99) 222 mg/dL (70-99) Assessment/Plan Assessment/Plan Bilateral lower extremity ulcerations complicated by cellulitic changes Bilateral diabetic ulcerations also noted of unspecified severity to the dorsum and hind feet Left forefoot diabetic Montes 1 ulceration Procedure following informed patient consent and utilizing topical anesthetic of lidocaine, slough was removed and brought swaths of lower extremity without complication or bleeding. Multiple areas of hard necrotic base were not amenable to bedside debridement at this time. This was well-tolerated by the patient. This constituted removal of nonviable tissue only. Both lower extremities were debrided totaling roughly 1000 cm to each lower extremity. Orders left for wound dressing applications and will follow along. CHANTELL GAXIOLA DO May 09, 2021 15:07
--- NOTE | 2021-05-09 15:14 | NUR ---
SS following up with discharge planning. SS reviewed pt chart and discussed with pt RN. Pt is currently on room air. PT/OT ordered. Wound care following. Dr. Small consulted. Pt on IV Daptomycin and IV Zosyn. Self pay. SS will continue to follow for discharge planning.
[2021-05-09] MEDS ORDERED: BENZOCAINE/MENTHOL LOZENGE. PO PRN (19:30)
[2021-05-09] MEDS ORDERED: PHENOL ORAL SPRAY 177ML BOTTLE. PO PRN (19:30)
[2021-05-09 19:34] VITALS: BP_SYST 145; BP_SYST 180; BP_DIAS 108; BP_DIAS 91
[2021-05-09] MEDS: ENOXAPARIN 40 MG/0.4 ML SYRINGE. SQ SCH (21:48)
[2021-05-09] MEDS: INSULIN GLARGINE SYRINGE. SQ SCH (21:51)
[2021-05-09 22:51] VITALS: BP 131/82
[2021-05-10] MEDS: IV NORMAL SALINE 1000ML BAG 1,000 ML IV SCH ×5 (01:30→21:48)
[2021-05-10] MEDS: PIPERACILLIN/TAZOBACTAM 3.375 GM in IV NORMAL SALINE 50ML 50 ML IV SCH ×4 (01:30→17:55)
[2021-05-10 03:05] VITALS: BP 136/93
[2021-05-10] MEDS: MORPHINE SULFATE 4 MG/ML INJ. IV PRN ×5 (04:20→22:44)
[2021-05-10 07:00] VITALS: BP 139/93
[2021-05-10] MEDS: INSULIN LISPRO 300 UNITS/3 ML VIAL. SQ SCH ×3 (07:45→17:00)
[2021-05-10] MEDS: LACTOBACILLUS RHAMNOSUS GG 1 CAPSULE. PO SCH ×2 (07:45→21:38)
[2021-05-10] MEDS: ASPIRIN ENTERIC COATED 81 MG TABLET.DR. PO SCH (07:45)
[2021-05-10] MEDS: MULTIVITAMIN I-VITE TABLET. PO SCH (07:46)
[2021-05-10] MEDS: ASCORBIC ACID 500 MG TABLET PO SCH (07:46)
[2021-05-10 08:22] LABS: BASO % 0 % (0-3); EOS # 0.2 x10^3/uL (0.0-0.7); EOS % 2 % (0-3); HEMATOCRIT 42.3 % (39.0-53.0); HEMOGLOBIN 13.8 g/dL (13.0-17.5); LYMPH # 0.6 x10^3/uL (1.0-4.8); LYMPH % 6 % (24-48); MEAN CORPUSCULAR HEMOGLOBIN 27 pg (25-35); MEAN CORPUSCULAR HGB CONC 33 g/dL (31-37); MEAN CORPUSCULAR VOLUME 83 fL (79-100); MONO # 0.7 x10^3/uL (0.0-1.1); MONO % 8 % (0-9); NEUT # 7.5 x10^3/uL (1.8-7.7); NEUT % 83 % (31-73); PLATELET COUNT 301 x10^3/uL (140-400); RED BLOOD COUNT 5.07 x10^6/uL (4.30-5.70); RED CELL DISTRIBUTION WIDTH 16.3 % (11.5-14.5)
[2021-05-10 08:43] LABS: CALCIUM 8.4 mg/dL (8.5-10.1); CREATININE 2.1 mg/dL (0.7-1.3); GFR 32.4; POTASSIUM 3.7 mmol/L (3.5-5.1)
--- NOTE | 2021-05-10 09:20 | PDOC ---
Infectious Disease Note Subjective: Subjective Pt without complaints pain in ble improving Vital Signs: Vital Signs Vital Signs Date Time Temp Pulse Resp B/P (MAP) Pulse Ox O2 Delivery O2 Flow Rate FiO2 05/10/21 08:13 87 Room Air 05/10/21 07:46 100 136/93 05/10/21 07:43 20 05/10/21 07:00 98.0 98.0 Physical Exam: PHYSICAL EXAM GENERAL: Alert, oriented x 3 male in no acute distress, nontoxic appearing. HEENT: Normocephalic, atraumatic. Anicteric. No thrush. Dentition poor. NECK: Supple, no JVD. LUNGS: Clear. HEART: S1, S2. No murmurs. ABDOMEN: Soft, nontender, nondistended. EXTREMITIES: Bilateral lower extremity dressing in place, intact, not taken down. DERM: Wound pictures noted in chart. The patient has bilateral lower extremity excoriation in the thigh. Bilateral foot callus, left toe greater than right toe. Right lower extremity wounds with ulceration noted numerous. No gross purulence noted. Edema present. LUE PICC line clean Medications: Inpatient Meds: Medications reviewed. Labs: Lab Laboratory Tests Test 05/09/21 11:27 05/09/21 16:55 05/09/21 20:31 05/10/21 07:25 Glucose (Fingerstick) 222 mg/dL (70-99) 173 mg/dL (70-99) 183 mg/dL (70-99) 99 mg/dL (70-99) Test 05/10/21 07:40 White Blood Count 9.0 x10^3/uL (4.0-11.0) Red Blood Count 5.07 x10^6/uL (4.30-5.70) Hemoglobin 13.8 g/dL (13.0-17.5) Hematocrit 42.3 % (39.0-53.0) Mean Corpuscular Volume 83 fL (79-100) Mean Corpuscular Hemoglobin 27 pg (25-35) Mean Corpuscular Hemoglobin Concent 33 g/dL (31-37) Red Cell Distribution Width 16.3 % (11.5-14.5) Platelet Count 301 x10^3/uL (140-400) Neutrophils (%) (Auto) 83 % (31-73) Lymphocytes (%) (Auto) 6 % (24-48) Monocytes (%) (Auto) 8 % (0-9) Eosinophils (%) (Auto) 2 % (0-3) Basophils (%) (Auto) 0 % (0-3) Neutrophils # (Auto) 7.5 x10^3/uL (1.8-7.7) Lymphocytes # (Auto) 0.6 x10^3/uL (1.0-4.8) Monocytes # (Auto) 0.7 x10^3/uL (0.0-1.1) Eosinophils # (Auto) 0.2 x10^3/uL (0.0-0.7) Basophils # (Auto) 0.0 x10^3/uL (0.0-0.2) Sodium Level 138 mmol/L (136-145) Potassium Level 3.7 mmol/L (3.5-5.1) Chloride Level 104 mmol/L (98-107) Carbon Dioxide Level 23 mmol/L (21-32) Anion Gap 11 (6-14) Blood Urea Nitrogen 49 mg/dL (8-26) Creatinine 2.1 mg/dL (0.7-1.3) Estimated GFR (Cockcroft-Gault) 32.4 Glucose Level 95 mg/dL (70-99) Calcium Level 8.4 mg/dL (8.5-10.1) Objective: Assessment: 1. Bilateral lower extremity chronic wounds. 2. Mild superimposed infection. 3. Peripheral arterial disease. 4. Leukocytosis, was on steroids. 5. Lactic acidosis. 6. Acute kidney injury. 7. Uncontrolled diabetes. 8. History of noncompliance. 9. Eczema. 10. History of colon cancer. Plan: Plan of Care 1. Continue Zosyn, may need renal dosing. 2. cont daptomycin. 3. Continue local wound care. 4. Elevate legs. 5. Vascular Surgery consult noted. 6. Offload. 7. Optimal diabetes control. 8. Optimal edema control. 9. Follow up labs and cultures. 10. Continue supportive care. EH BASS MD May 10, 2021 09:20
--- NOTE | 2021-05-10 10:19 | PDOC ---
PROGRESS NOTES Date of Service: DATE: 05/10/21 TIME: 10:19 Chief Complaint Chief Complaint CC: bilateral LE cellulitis, elevated troponin I BL LE cellulitis Elevated troponin I (0.265) Newly diagnosed diabetes, type 2 ANDREEA Hyponatremia, resolved PVD Left great toe diabetic ulcer HTN H/o colon cancer in 2011 cont IV daptomycin. Wounds significantly complicated by bilateral lower extremity cellulitis. ECHO left ventricular systolic function is severely diminished ejection fraction is estimated at 20-25%. global hypokinesis of the left ventricle. Trace mitral regurgitation. CARDIOLOGY consulted ckd nephrology consult 05-10? acute renal tubular necrosis hypoxia chk abg History of Present Illness History of Present Illness 05/10/21 Patient seen and examined Patient in bed, alert, NAD Afebrile Clean dry intact dressing on bilateral LE Discussed with RN Continue IV ZOSYN cont IV daptomycin. Wounds significantly complicated by bilateral lower extremity cellulitis. ECHO left ventricular systolic function is severely diminished ejection fraction is estimated at 20-25%. global hypokinesis of the left ventricle. Trace mitral regurgitation. CARDIOLOGY consulted ckd nephrology consult 05-10? acute renal tubular necrosis hypoxia chk abg 05/09/21 Patient seen and examined Patient in bed, alert, NAD Afebrile Clean dry intact dressing on bilateral LE Discussed with RN 05/08/21 Patient seen and examined Patient in bed, alert, NAD Afebrile Clean dry intact dressing on bilateral LE Run of PVCs on manager cardiac cath during exam Patient denies palpitations, chest pain, dyspnea Discussed with RN Vitals Vitals Vital Signs Date Time Temp Pulse Resp B/P (MAP) Pulse Ox O2 Delivery O2 Flow Rate FiO2 05/10/21 08:13 87 Room Air 05/10/21 07:46 100 136/93 05/10/21 07:43 20 05/10/21 07:00 98.0 98.0 Physical Exam Physical Exam GENERAL: Alert, oriented x 3 male in no acute distress, nontoxic appearing. HEENT: Normocephalic, atraumatic. Anicteric. No thrush. Dentition poor. NECK: Supple, no JVD. LUNGS: Clear. HEART: S1, S2. No murmurs. ABDOMEN: Soft, nontender, nondistended. EXTREMITIES: Bilateral lower extremity dressing in place, intact, not taken down. DERM: Wound pictures noted in chart. The patient has bilateral lower extremity excoriation in the thigh. Bilateral foot callus, left toe greater than right toe. Right lower extremity wounds with ulceration noted numerous. No gross purulence noted. Edema present. LUE PICC line clean General: Alert, Oriented X3, Cooperative, No acute distress Heart: Regular rate Lungs: Clear Abdomen: Soft, No tenderness Extremities: No cyanosis, Other (Palpable pulse exam bilaterally with normal dorsalis pedis pulses, normal sounding posterior tibial Doppler signals, palpable femoral and popliteal pulses bilaterally) Skin: Other (Extensive superficial ulcerations bilateral lower extremities with sites of necrotic large ulcerations with 3 mm of depth. The left great toe demonstrates a Montes 1 ulceration with skin breakdown only and foot dorsum bilaterally shows unspecified severity diabetic ulcerations) Labs LABS EXAMINATION: Chest radiograph. VIEWS: Single view COMPARISON: 08/17/2011 INDICATION:60 years, Male, PICC line placement. FINDINGS: Borderline enlarged cardiomediastinal silhouette. Bibasilar subsegmental and/or infiltrates. No sizable pleural effusion or pneumothorax. No acute osseous process. Left PICC line venous catheter terminates in the superior cavoatrial junction. IMPRESSION: 1. Left PICC line venous catheter terminates in the superior cavoatrial junction. 2. Bibasilar subsegmental atelectasis and/or infiltrates. Clinical correlation is advised. Electronically signed by: Jarett Hines MD (05/08/2021 2:56 PM) [facility] DICTATED and SIGNED BY: JARETT HINES MD DATE: 05/08/21 [id number] Pulmonary Valve PV Peak Velocity 85.6cm/s PV Peak Grad. 3mmHg Tricuspid Valve TR P. Velocity 261cm/s RAP ESTIMATE 3mmHg TR Peak Gr. 40mmHg RVSP 43mmHg Pulmonary Vein S1 Velocity 32.6cm/s D2 Velocity 52.5cm/s LEFT VENTRICLE The Left Ventricle is mildly dilated. There is normal left ventricular wall thickness. The left ventricular systolic function is severely diminished The ejection fraction is estimated at 20-25%. There is global hypokinesis of the left ventricle. No left ventricle thrombus noted on this study. RIGHT VENTRICLE The right ventricle is mildly dilated. Systolic function is mildly reduced. ATRIA The left atrium is mildly dilated. The right atrium size is normal. The interatrial septum is intact with no evidence for an atrial septal defect or patent foramen ovale as noted on 2-D or Doppler imaging. AORTIC VALVE The aortic valve is normal in structure and function. Doppler and Color Flow revealed trace aortic regurgitation. There is no significant aortic valvular stenosis. Calculated aortic valve area is 2.36 cm2 with maximum pressure gradient of 6 mmHg and mean pressure gradient of 3 mmHg. MITRAL VALVE The mitral valve is normal in structure and function. There is no evidence of mitral valve prolapse. There is no mitral valve stenosis. Doppler and Color-flow revealed trace mitral regurgitation. TRICUSPID VALVE The tricuspid valve is normal in structure and function. Doppler and Color Flow revealed mild tricuspid regurgitation with an estimated PAP of 43 mmHg. There is no tricuspid valve stenosis. PULMONIC VALVE The pulmonic valve is not well visualized. Doppler and Color Flow revealed trace pulmonic valvular regurgitation. GREAT VESSELS The aortic root is normal in size. The IVC is normal in size and collapses >50% with inspiration. PERICARDIAL EFFUSION There is no evidence of significant pericardial effusion. Critical Notification Critical Value: No <Conclusion> The left ventricular systolic function is severely diminished The ejection fraction is estimated at 20-25%. There is global hypokinesis of the left ventricle. Trace mitral regurgitation. Mild tricuspid regurgitation with an estimated PAP of 43 mmHg. There is no evidence of significant pericardial effusion. Signed by : Maynor Wolfe, Electronically Approved : 05/09/2021 10:27:00 DICTATED and SIGNED BY: MAYNOR WOLFE MD DATE: 05/08/21 [id number] PATIENT: KEREN FAULKNER ACCOUNT: [id number] : 1960 LOCATION: [facility] AGE: 60 SEX: M EXAM STATUS: ADM IN ORD. PHYSICIAN: VENKATA CLARK MD REASON: swelling, diabetic foot PROCEDURE: FOOT LEFT 3V XR FOOT_LEFT 3 VIEWS History: Swelling, diabetic foot Comparison: None. Technique: 3 views of the left foot. Findings: Prominent swelling of the dorsum of the foot. No fracture or dislocation identified. No aggressive osseous or erosive change. Degenerative changes at the first metatarsophalangeal joint and interphalangeal joints. Plantar calcaneal and Achilles insertion enthesophytes. Impression: 1. Soft tissue swelling without acute osseous abnormality or aggressive osseous erosive process in the left foot. Electronically signed by: Crispin Munoz MD (05/08/2021 10:58 AM) [facility] DICTATED and SIGNED BY: CRISPIN MUNOZ MD DATE: 05/08/21 [id number] Laboratory Tests Test 05/09/21 11:27 05/09/21 16:55 05/09/21 20:31 05/10/21 07:25 Glucose (Fingerstick) 222 mg/dL (70-99) 173 mg/dL (70-99) 183 mg/dL (70-99) 99 mg/dL (70-99) Test 05/10/21 07:40 White Blood Count 9.0 x10^3/uL (4.0-11.0) Red Blood Count 5.07 x10^6/uL (4.30-5.70) Hemoglobin 13.8 g/dL (13.0-17.5) Hematocrit 42.3 % (39.0-53.0) Mean Corpuscular Volume 83 fL (79-100) Mean Corpuscular Hemoglobin 27 pg (25-35) Mean Corpuscular Hemoglobin Concent 33 g/dL (31-37) Red Cell Distribution Width 16.3 % (11.5-14.5) Platelet Count 301 x10^3/uL (140-400) Neutrophils (%) (Auto) 83 % (31-73) Lymphocytes (%) (Auto) 6 % (24-48) Monocytes (%) (Auto) 8 % (0-9) Eosinophils (%) (Auto) 2 % (0-3) Basophils (%) (Auto) 0 % (0-3) Neutrophils # (Auto) 7.5 x10^3/uL (1.8-7.7) Lymphocytes # (Auto) 0.6 x10^3/uL (1.0-4.8) Monocytes # (Auto) 0.7 x10^3/uL (0.0-1.1) Eosinophils # (Auto) 0.2 x10^3/uL (0.0-0.7) Basophils # (Auto) 0.0 x10^3/uL (0.0-0.2) Sodium Level 138 mmol/L (136-145) Potassium Level 3.7 mmol/L (3.5-5.1) Chloride Level 104 mmol/L (98-107) Carbon Dioxide Level 23 mmol/L (21-32) Anion Gap 11 (6-14) Blood Urea Nitrogen 49 mg/dL (8-26) Creatinine 2.1 mg/dL (0.7-1.3) Estimated GFR (Cockcroft-Gault) 32.4 Glucose Level 95 mg/dL (70-99) Calcium Level 8.4 mg/dL (8.5-10.1) Comment Review of Relevant I have reviewed the following items rosa (where applicable) has been applied. Labs Laboratory Tests Test 05/08/21 11:39 05/08/21 17:14 05/08/21 19:00 05/08/21 21:04 Glucose (Fingerstick) 259 mg/dL (70-99) 233 mg/dL (70-99) 251 mg/dL (70-99) Urine Collection Type Unknown Urine Color Donya Urine Clarity Cloudy Urine pH 5.0 (<5.0-8.0) Urine Specific [place] 1.025 (1.000-1.030) Urine Protein 100 mg/dL (NEG-TRACE) Urine Glucose (UA) 250 mg/dL (NEG) Urine Ketones (Stick) Trace mg/dL (NEG) Urine Blood Negative (NEG) Urine Nitrite Negative (NEG) Urine Bilirubin Negative (NEG) Urine Urobilinogen Dipstick 0.2 mg/dL (0.2 mg/dL) Urine Leukocyte Esterase Negative (NEG) Urine RBC 0 /HPF (0-2) Urine WBC Occ /HPF (0-4) Urine Squamous Epithelial Cells Occ /LPF Urine Amorphous Sediment Present /HPF Urine Bacteria 0 /HPF (0-FEW) Urine Granular Casts Few /HPF Urine Mucus Slight /LPF Test 05/09/21 03:40 05/09/21 07:51 05/09/21 11:27 05/09/21 16:55 White Blood Count 10.8 x10^3/uL (4.0-11.0) Red Blood Count 5.19 x10^6/uL (4.30-5.70) Hemoglobin 14.2 g/dL (13.0-17.5) Hematocrit 43.6 % (39.0-53.0) Mean Corpuscular Volume 84 fL (79-100) Mean Corpuscular Hemoglobin 27 pg (25-35) Mean Corpuscular Hemoglobin Concent 33 g/dL (31-37) Red Cell Distribution Width 16.1 % (11.5-14.5) Platelet Count 357 x10^3/uL (140-400) Neutrophils (%) (Auto) 83 % (31-73) Lymphocytes (%) (Auto) 8 % (24-48) Monocytes (%) (Auto) 7 % (0-9) Eosinophils (%) (Auto) 3 % (0-3) Basophils (%) (Auto) 0 % (0-3) Neutrophils # (Auto) 8.9 x10^3/uL (1.8-7.7) Lymphocytes # (Auto) 0.8 x10^3/uL (1.0-4.8) Monocytes # (Auto) 0.7 x10^3/uL (0.0-1.1) Eosinophils # (Auto) 0.3 x10^3/uL (0.0-0.7) Basophils # (Auto) 0.0 x10^3/uL (0.0-0.2) Sodium Level 136 mmol/L (136-145) Potassium Level 3.6 mmol/L (3.5-5.1) Chloride Level 101 mmol/L (98-107) Carbon Dioxide Level 22 mmol/L (21-32) Anion Gap 13 (6-14) Blood Urea Nitrogen 55 mg/dL (8-26) Creatinine 2.4 mg/dL (0.7-1.3) Estimated GFR (Cockcroft-Gault) 27.8 Glucose Level 158 mg/dL (70-99) Calcium Level 8.4 mg/dL (8.5-10.1) Creatine Kinase 192 U/L (39-308) Glucose (Fingerstick) 141 mg/dL (70-99) 222 mg/dL (70-99) 173 mg/dL (70-99) Test 05/09/21 20:31 05/10/21 07:25 05/10/21 07:40 Glucose (Fingerstick) 183 mg/dL (70-99) 99 mg/dL (70-99) White Blood Count 9.0 x10^3/uL (4.0-11.0) Red Blood Count 5.07 x10^6/uL (4.30-5.70) Hemoglobin 13.8 g/dL (13.0-17.5) Hematocrit 42.3 % (39.0-53.0) Mean Corpuscular Volume 83 fL (79-100) Mean Corpuscular Hemoglobin 27 pg (25-35) Mean Corpuscular Hemoglobin Concent 33 g/dL (31-37) Red Cell Distribution Width 16.3 % (11.5-14.5) Platelet Count 301 x10^3/uL (140-400) Neutrophils (%) (Auto) 83 % (31-73) Lymphocytes (%) (Auto) 6 % (24-48) Monocytes (%) (Auto) 8 % (0-9) Eosinophils (%) (Auto) 2 % (0-3) Basophils (%) (Auto) 0 % (0-3) Neutrophils # (Auto) 7.5 x10^3/uL (1.8-7.7) Lymphocytes # (Auto) 0.6 x10^3/uL (1.0-4.8) Monocytes # (Auto) 0.7 x10^3/uL (0.0-1.1) Eosinophils # (Auto) 0.2 x10^3/uL (0.0-0.7) Basophils # (Auto) 0.0 x10^3/uL (0.0-0.2) Sodium Level 138 mmol/L (136-145) Potassium Level 3.7 mmol/L (3.5-5.1) Chloride Level 104 mmol/L (98-107) Carbon Dioxide Level 23 mmol/L (21-32) Anion Gap 11 (6-14) Blood Urea Nitrogen 49 mg/dL (8-26) Creatinine 2.1 mg/dL (0.7-1.3) Estimated GFR (Cockcroft-Gault) 32.4 Glucose Level 95 mg/dL (70-99) Calcium Level 8.4 mg/dL (8.5-10.1) Laboratory Tests Test 05/09/21 11:27 05/09/21 16:55 05/09/21 20:31 05/10/21 07:25 Glucose (Fingerstick) 222 mg/dL (70-99) 173 mg/dL (70-99) 183 mg/dL (70-99) 99 mg/dL (70-99) Test 7/17/21 07:40 White Blood Count 9.0 x10^3/uL (4.0-11.0) Red Blood Count 5.07 x10^6/uL (4.30-5.70) Hemoglobin 13.8 g/dL (13.0-17.5) Hematocrit 42.3 % (39.0-53.0) Mean Corpuscular Volume 83 fL (79-100) Mean Corpuscular Hemoglobin 27 pg (25-35) Mean Corpuscular Hemoglobin Concent 33 g/dL (31-37) Red Cell Distribution Width 16.3 % (11.5-14.5) Platelet Count 301 x10^3/uL (140-400) Neutrophils (%) (Auto) 83 % (31-73) Lymphocytes (%) (Auto) 6 % (24-48) Monocytes (%) (Auto) 8 % (0-9) Eosinophils (%) (Auto) 2 % (0-3) Basophils (%) (Auto) 0 % (0-3) Neutrophils # (Auto) 7.5 x10^3/uL (1.8-7.7) Lymphocytes # (Auto) 0.6 x10^3/uL (1.0-4.8) Monocytes # (Auto) 0.7 x10^3/uL (0.0-1.1) Eosinophils # (Auto) 0.2 x10^3/uL (0.0-0.7) Basophils # (Auto) 0.0 x10^3/uL (0.0-0.2) Sodium Level 138 mmol/L (136-145) Potassium Level 3.7 mmol/L (3.5-5.1) Chloride Level 104 mmol/L (98-107) Carbon Dioxide Level 23 mmol/L (21-32) Anion Gap 11 (6-14) Blood Urea Nitrogen 49 mg/dL (8-26) Creatinine 2.1 mg/dL (0.7-1.3) Estimated GFR (Cockcroft-Gault) 32.4 Glucose Level 95 mg/dL (70-99) Calcium Level 8.4 mg/dL (8.5-10.1) Microbiology 05/07/21 Blood Culture - Preliminary, Resulted NO GROWTH AFTER 2 DAYS Medications Current Medications Sodium Chloride (Normal Saline Flush) 3 ml QSHIFT PRN IV AFTER MEDS AND BLOOD DRAWS; Start 05/07/21 at 15:15 Sodium Chloride 1,000 ml @ 75 mls/hr [id number] IV ; Start 05/07/21 at 15:15; Stop 05/07/21 at 17:48; Status DC Ondansetron HCl (Zofran) 4 mg PRN Q4HRS PRN IV NAUSEA/VOMITING; Start 05/07/21 at 15:15 Acetaminophen (Tylenol) 650 mg PRN Q4HRS PRN PO TEMP OVER 100.4F OR MILD PAIN Last administered on 05/08/21at 15:11; Start 05/07/21 at 15:15 Al Hydroxide/Mg Hydroxide (Mylanta Plus Xs) 30 ml PRN DAILY PRN PO HEARTBURN / GAS; Start 05/07/21 at 15:15 Docusate Sodium (Colace) 100 mg PRN BID PRN PO HARD STOOLS; Start 05/07/21 at 15:15 Albuterol Sulfate (Ventolin Neb Soln) 2.5 mg PRN Q4HRS PRN NEB SHORTNESS OF BREATH; Start 05/07/21 at 15:15 Guaifenesin (Robitussin) 200 mg PRN Q4HRS PRN PO COUGH; Start 05/07/21 at 15:15 Enoxaparin Sodium (Lovenox 40mg Syringe) 40 mg Q24H SQ Last administered on 05/09/21at 21:48; Start 05/07/21 at 21:00 Insulin Human Lispro (HumaLOG) 0-9 UNITS TIDWMEALS SQ Last administered on 05/09/21at 18:16; Start 05/07/21 at 17:30 Dextrose (Dextrose 50%-Water Syringe) 12.5 gm PRN Q15MIN PRN IV SEE COMMENTS; Start 05/07/21 at 17:15; Status Cancel Sodium Chloride 1,000 ml @ 150 mls/hr Q6H40M IV Last administered on 05/10/21at 01:30; Start 05/07/21 at 17:15 Lactobacillus Rhamnosus (Culturelle) 1 cap BID PO Last administered on 05/10/21at 07:45; Start 05/07/21 at 21:00 Morphine Sulfate (Morphine Sulfate) 4 mg PRN Q2HR PRN IV PAIN Last administered on 05/10/21at 07:43; Start 05/07/21 at 17:15 Nifedipine (Procardia Xl) 30 mg DAILY PO Last administered on 05/10/21at 07:46; Start 05/08/21 at 09:00 Piperacillin Sod/ Tazobactam Sod (Zosyn Per Pharmacy) 1 each PRN DAILY PRN MC SEE COMMENTS; Start 05/07/21 at 17:15 Piperacillin Sod/ Tazobactam Sod 3.375 gm/Sodium Chloride 50 ml @ 100 mls/hr Q6HRS IV Last administered on 05/10/21at 07:35; Start 05/07/21 at 18:00 Vancomycin HCl (Vanco Per Pharmacy) 1 each PRN DAILY PRN MC SEE COMMENTS; Sta rt 05/07/21 at 17:15; Stop 05/07/21 at 17:50; Status DC Vancomycin HCl 1.75 gm/Sodium Chloride 500 ml @ 250 mls/hr Q12H IV ; Start 05/07/21 at 20:00; Stop 05/07/21 at 17:48; Status DC Zolpidem Tartrate (Ambien) 5 mg PRN QHS PRN PO INSOMNIA Last administered on 05/09/21at 21:48; Start 05/07/21 at 17:15 Insulin Glargine (Lantus Syringe) 10 unit QHS SQ Last administered on 05/09/21at 21:51; Start 05/07/21 at 21:00 Insulin Human Lispro (HumaLOG) 0-5 UNITS TIDWMEALS SQ ; Start 05/08/21 at 08:00; Status Cancel Dextrose (Dextrose 50%-Water Syringe) 12.5 gm PRN Q15MIN PRN IV SEE COMMENTS; Start 05/07/21 at 18:00 Daptomycin 570 mg/ Sodium Chloride 50 ml @ 100 mls/hr Q24H IV Last administered on 05/09/21at 12:20; Start 05/08/21 at 11:00 Multivitamins/ Minerals (I-Eliazar) 1 tab DAILY PO Last administered on 05/10/21at 07:46; Start 05/08/21 at 15:00 Ascorbic Acid (Vitamin C) 500 mg DAILY PO Last administered on 05/10/21at 07:46; Start 05/08/21 at 15:00 Aspirin (Ecotrin) 81 mg [id number] PO Last administered on 05/10/21at 07:45; Start 05/09/21 at 08:00 Lidocaine HCl (Xylocaine 2% Topical 30gm Tube) 1 rowdy 1X ONCE TP Last administered on 05/09/21at 14:14; Start 05/09/21 at 09:30; Stop 05/09/21 at 09:35; Status DC Diphenhydramine HCl (Benadryl) 25 mg PRN Q6HRS PRN IVP ITCHING Last administered on 05/09/21at 12:16; Start 05/09/21 at 11:15 Diphenhydramine HCl (Benadryl) 25 mg PRN Q6HRS PRN PO ITCHING Last administered on 05/09/21at 21:53; Start 05/09/21 at 11:15 Throat Lozenges (Cepacol Sore Throat Lozenge) 1 asya PRN Q2HRS PRN PO SORE THROAT; Start 05/09/21 at 19:30 Phenol (Chloraseptic) 1 spray PRN Q2HR PRN PO SORE THROAT- 2ND CHOICE Last administered on 05/09/21at 19:38; Start 05/09/21 at 19:30 Vitals/I & O Vital Sign - Last 24 Hours 05/09/21 05/09/21 05/09/21 05/09/21 11:31 14:18 14:28 14:51 Temp 97.9 97.9 Pulse 102 Resp 20 B/P (MAP) 173/103 (126) Pulse Ox 94 94 94 94 O2 Delivery Room Air Room Air Room Air Room Air 05/09/21 05/09/21 05/09/21 05/09/21 15:00 19:34 19:36 20:00 Temp 98.5 98.0 98.5 98.0 Pulse 100 109 Resp 20 18 20 B/P (MAP) 180/108 (132) 145/91 (109) Pulse Ox 94 93 94 O2 Delivery Room Air Room Air Room Air Room Air 05/09/21 05/09/21 05/10/21 05/10/21 20:06 22:51 03:05 04:20 Temp 98.2 98.0 98.2 98.0 Pulse 102 100 Resp 20 18 18 20 B/P (MAP) 131/82 (98) 136/93 (107) Pulse Ox 96 93 O2 Delivery Room Air Room Air Room Air Room Air 05/10/21 05/10/21 05/10/21 05/10/21 04:50 07:00 07:43 07:46 Temp 98.0 98.0 Pulse 101 100 Resp 20 18 20 B/P (MAP) 139/93 (108) 136/93 Pulse Ox 87 O2 Delivery Room Air Room Air Room Air 05/10/21 05/10/21 08:00 08:13 Pulse Ox 87 O2 Delivery Room Air Room Air Intake and Output 05/09/21 05/09/21 05/10/21 15:00 23:00 07:00 Intake Total 50 ml 290 ml Output Total 275 ml Balance 50 ml 290 ml -275 ml Nutrition Consultation Dietary Evaluation: Recommendations by RD: Dietary education by RD, Protein supplementation Comments: glucerna q day mvi and vit c per wound protocal Glycemic control Expected Outcomes/Goals: to meet >75% est protein needs improved wound status Malnutrition Findings: Weight Status: Obese Fluid Accumulation (Non-Severe: Mild depletion Justicifation of Admission Dx: Justifications for Admission: Justification of Admission Dx: Yes VENKATA CLARK MD May 10, 2021 10:19
[2021-05-10 11:00] VITALS: BP 114/97
[2021-05-10] MEDS: DAPTOmycin (GENERIC) IVPB 570 MG in IV NORMAL SALINE 50ML 50 ML IV SCH (12:30)
[2021-05-10 15:09] VITALS: BP 175/88
[2021-05-10 17:10] LABS: BASE EXCESS COOX -6 mmol/L (-3-3); HCO3 COOX 16 mmol/L (21-28); METHEMOGLOBIN 0.2 % (0.0-1.9); PCO2 COOX 25 mmHg (35-46); PO2 COOX 75 mmHg (65-108); SAT O2 COOX 95 % (92-99)
[2021-05-10 19:00] VITALS: BP 169/101
[2021-05-10] MEDS: ENOXAPARIN 40 MG/0.4 ML SYRINGE. SQ SCH (21:32)
[2021-05-10] MEDS: INSULIN GLARGINE SYRINGE. SQ SCH (21:38)
[2021-05-10 22:35] VITALS: BP 144/90
[2021-05-10] MEDS: ZOLPIDEM 5 MG TABLET. PO PRN (22:44)
[2021-05-11] MEDS: PIPERACILLIN/TAZOBACTAM 3.375 GM in IV NORMAL SALINE 50ML 50 ML IV SCH ×5 (00:32→23:08)
[2021-05-11 04:00] VITALS: BP 146/95
[2021-05-11] MEDS: MORPHINE SULFATE 4 MG/ML INJ. IV PRN ×7 (04:29→23:09)
[2021-05-11] MEDS: IV NORMAL SALINE 1000ML BAG 1,000 ML IV SCH ×3 (04:59→21:07)
[2021-05-11 05:32] LABS: BASO % 0 % (0-3); EOS # 0.4 x10^3/uL (0.0-0.7); EOS % 3 % (0-3); HEMATOCRIT 43.8 % (39.0-53.0); LYMPH # 0.8 x10^3/uL (1.0-4.8); LYMPH % 7 % (24-48); MEAN CORPUSCULAR HEMOGLOBIN 27 pg (25-35); MEAN CORPUSCULAR HGB CONC 32 g/dL (31-37); MEAN CORPUSCULAR VOLUME 84 fL (79-100); MONO % 9 % (0-9); NEUT # 9.7 x10^3/uL (1.8-7.7); NEUT % 81 % (31-73); PLATELET COUNT 353 x10^3/uL (140-400); RED BLOOD COUNT 5.23 x10^6/uL (4.30-5.70); RED CELL DISTRIBUTION WIDTH 16.4 % (11.5-14.5)
[2021-05-11 05:59] LABS: CALCIUM 8.6 mg/dL (8.5-10.1); CREATININE 2.2 mg/dL (0.7-1.3); GFR 30.7
--- NOTE | 2021-05-11 07:56 | PDOC ---
Infectious Disease Note Subjective: Subjective Pt resting quietly Vital Signs: Vital Signs Vital Signs Date Time Temp Pulse Resp B/P (MAP) Pulse Ox O2 Delivery O2 Flow Rate FiO2 05/11/21 04:59 20 Room Air 05/11/21 04:00 97.9 99 146/95 (112) 96 97.9 Physical Exam: PHYSICAL EXAM GENERAL: Alert, oriented x 3 male in no acute distress, nontoxic appearing. HEENT: Normocephalic, atraumatic. Anicteric. No thrush. Dentition poor. NECK: Supple, no JVD. LUNGS: Clear. HEART: S1, S2. No murmurs. ABDOMEN: Soft, nontender, nondistended. EXTREMITIES: Bilateral lower extremity dressing in place, intact, not taken down. DERM: Wound pictures noted in chart. The patient has bilateral lower extremity excoriation in the thigh. Bilateral foot callus, left toe greater than right toe. Right lower extremity wounds with ulceration noted numerous. No gross purulence noted. Edema present. LUE PICC line clean Medications: Inpatient Meds: Medications reviewed. Labs: Lab Laboratory Tests Test 05/10/21 11:59 05/10/21 15:03 05/10/21 17:20 05/10/21 21:00 Glucose (Fingerstick) 124 mg/dL (70-99) 117 mg/dL (70-99) 151 mg/dL (70-99) O2 Saturation 95 % (92-99) Arterial Blood pH 7.42 (7.35-7.45) Arterial Blood pCO2 at Patient Temp 25 mmHg (35-46) Arterial Blood pO2 at Patient Temp 75 mmHg (65-108) Arterial Blood HCO3 16 mmol/L (21-28) Arterial Blood Base Excess -6 mmol/L (-3-3) Oxyhemoglobin 94.0 % Methemoglobin 0.2 % (0.0-1.9) Carbon Monoxide, Quantitative 0.6 % (0.0-1.9) FiO2 21/ra Test 05/11/21 05:00 White Blood Count 12.0 x10^3/uL (4.0-11.0) Red Blood Count 5.23 x10^6/uL (4.30-5.70) Hemoglobin 14.0 g/dL (13.0-17.5) Hematocrit 43.8 % (39.0-53.0) Mean Corpuscular Volume 84 fL (79-100) Mean Corpuscular Hemoglobin 27 pg (25-35) Mean Corpuscular Hemoglobin Concent 32 g/dL (31-37) Red Cell Distribution Width 16.4 % (11.5-14.5) Platelet Count 353 x10^3/uL (140-400) Neutrophils (%) (Auto) 81 % (31-73) Lymphocytes (%) (Auto) 7 % (24-48) Monocytes (%) (Auto) 9 % (0-9) Eosinophils (%) (Auto) 3 % (0-3) Basophils (%) (Auto) 0 % (0-3) Neutrophils # (Auto) 9.7 x10^3/uL (1.8-7.7) Lymphocytes # (Auto) 0.8 x10^3/uL (1.0-4.8) Monocytes # (Auto) 1.0 x10^3/uL (0.0-1.1) Eosinophils # (Auto) 0.4 x10^3/uL (0.0-0.7) Basophils # (Auto) 0.0 x10^3/uL (0.0-0.2) Sodium Level 139 mmol/L (136-145) Potassium Level 3.0 mmol/L (3.5-5.1) Chloride Level 103 mmol/L (98-107) Carbon Dioxide Level 21 mmol/L (21-32) Anion Gap 15 (6-14) Blood Urea Nitrogen 44 mg/dL (8-26) Creatinine 2.2 mg/dL (0.7-1.3) Estimated GFR (Cockcroft-Gault) 30.7 Glucose Level 93 mg/dL (70-99) Calcium Level 8.6 mg/dL (8.5-10.1) Objective: Assessment: 1. Bilateral lower extremity chronic wounds. 2. Mild superimposed infection. 3. Peripheral arterial disease. 4. Leukocytosis, was on steroids. 5. Lactic acidosis. 6. Acute kidney injury. 7. Uncontrolled diabetes. 8. History of noncompliance. 9. Eczema. 10. History of colon cancer. Plan: Plan of Care 1. Continue Zosyn, dose micafungin 2. cont daptomycin.CK wnl on 05/09 3. Continue local wound care. 4. Elevate legs. 5. Vascular Surgery consult noted. 6. Offload. 7. Optimal diabetes control. 8. Optimal edema control. 9. Follow up labs and cultures. 10. Continue supportive care. EH BASS MD May 11, 2021 07:56
[2021-05-11] MEDS: INSULIN LISPRO 300 UNITS/3 ML VIAL. SQ SCH ×3 (08:00→17:00)
[2021-05-11] MEDS: LACTOBACILLUS RHAMNOSUS GG 1 CAPSULE. PO SCH ×2 (08:29→20:58)
[2021-05-11] MEDS: ASPIRIN ENTERIC COATED 81 MG TABLET.DR. PO SCH (08:29)
[2021-05-11] MEDS: MULTIVITAMIN I-VITE TABLET. PO SCH (08:29)
[2021-05-11] MEDS: ASCORBIC ACID 500 MG TABLET PO SCH (08:30)
--- NOTE | 2021-05-11 08:48 | RAD ---
XR CHEST 1V History: Hypoxia Comparison: None. Technique: Portable AP radiograph of the chest. Findings: Left upper extremity PICC tip terminates in the region of the lower SVC. Low lung volumes with bibasi lar mostly linear opacities likely atelectasis. No significant pleural effusion. No pneumothorax. Car diac silhouette is at the upper limits of normal. Pulmonary vasculature is cephalized and indistinct. No acute osseous abnormality. Impression: 1. Unchanged left upper extremity PICC. 2. Persistent bilateral basilar linear opacities most likely atelectasis cannot exclude infection. 3. Pulmonary vascular congestion versus crowding. Electronically signed by: Crispin Bradley MD (05/11/2021 8:45 AM) [facility]
--- NOTE | 2021-05-11 09:04 | RAD ---
EXAM: RENAL ULTRASOUND CLINICAL HISTORY: Acute kidney injury COMPARISON: None available. TECHNIQUE: Ultrasound examination of the bilateral kidneys and urinary bladder was performed. FINDINGS: Visualization of kidneys is limited due to bowel gas. The right kidney measures 13.3 x 6.7 x 7.2 cm. The left kidney measures 11.0 x 5.8 x 6.7 cm. Grossly normal echogenicity and cortical thickness. No hydronephrosis. Urinary bladder prevoid volume is 430 cc. No wall thickening or mass visualized. Uret eral jets are not visualized. IMPRESSION: No hydronephrosis. Electronically signed by: Jemma Green MD (05/11/2021 9:02 AM) [id number]
[2021-05-11] MEDS: DAPTOmycin (GENERIC) IVPB 570 MG in IV NORMAL SALINE 50ML 50 ML IV SCH (10:30)
[2021-05-11] MEDS: MICAFUNGIN 100 MG in IV DEXTROSE 5% 100ML 100 ML IV SCH (10:31)
--- NOTE | 2021-05-11 13:10 | PDOC ---
[employer] PROGRESS NOTE Date of Service DOS: DATE: 05/11/21 TIME: 13:06 Chief Complaint Chief Complaint CC: bilateral LE cellulitis, elevated troponin I BL LE cellulitis Elevated troponin I (0.265) Newly diagnosed diabetes, type 2 ANDREEA Hyponatremia, resolved PVD Left great toe diabetic ulcer HTN H/o colon cancer in 2011 History of Present Illness History of Present Illness 05/11/21 Patient seen and examined Sitting up in bed, alert, NAD Afebrile Clean dry intact dressing on BL LE Wound debridement two days ago (05/09) which patient feels has helped significantly Discussed with RN Chart reviewed 05/10/21 Patient seen and examined Patient in bed, alert, NAD Afebrile Clean dry intact dressing on bilateral LE Discussed with RN Continue IV ZOSYN cont IV daptomycin. Wounds significantly complicated by bilateral lower extremity cellulitis. ECHO left ventricular systolic function is severely diminished ejection fraction is estimated at 20-25%. global hypokinesis of the left ventricle. Trace mitral regurgitation. CARDIOLOGY consulted ckd nephrology consult 05-10? acute renal tubular necrosis hypoxia chk abg 05/09/21 Patient seen and examined Patient in bed, alert, NAD Afebrile Clean dry intact dressing on bilateral LE Discussed with RN 05/08/21 Patient seen and examined Patient in bed, alert, NAD Afebrile Clean dry intact dressing on bilateral LE Run of PVCs on equipment monitor phototypesetting during exam Patient denies palpitations, chest pain, dyspnea Discussed with RN Vitals/I&O Vitals/I&O: Vital Signs Date Time Temp Pulse Resp B/P (MAP) Pulse Ox O2 Delivery O2 Flow Rate FiO2 05/11/21 11:00 96 Room Air 05/11/21 08:32 106 154/103 05/11/21 04:59 20 05/11/21 04:00 97.9 97.9 I & O 05/10/21 05/10/21 05/11/21 15:00 23:00 07:00 Intake Total 300 ml 120 ml 250 ml Output Total 275 ml 550 ml Balance 300 ml -155 ml -300 ml Physical Exam Physical Exam: GENERAL: Alert, oriented x 3 male in no acute distress, nontoxic appearing. HEENT: Normocephalic, atraumatic. Anicteric. No thrush. Dentition poor. NECK: Supple, no JVD. LUNGS: Clear. HEART: S1, S2. No murmurs. ABDOMEN: Soft, nontender, nondistended. EXTREMITIES: Bilateral lower extremity dressing in place, intact, not taken down. DERM: Wound pictures noted in chart. The patient has bilateral lower extremity excoriation in the thigh. Bilateral foot callus, left toe greater than right toe. Right lower extremity wounds with ulceration noted numerous. No gross purulence noted. Edema present. LUE PICC line clean General: Alert, Oriented X3, Cooperative, No acute distress Heart: Regular rate Lungs: Clear Abdomen: Soft, No tenderness Extremities: No cyanosis, Other (Palpable pulse exam bilaterally with normal dorsalis pedis pulses, normal sounding posterior tibial Doppler signals, palpable femoral and popliteal pulses bilaterally) Skin: Other (Extensive superficial ulcerations bilateral lower extremities with sites of necrotic large ulcerations with 3 mm of depth. The left great toe demonstrates a Montes 1 ulceration with skin breakdown only and foot dorsum bilaterally shows unspecified severity diabetic ulcerations) Labs Labs: Laboratory Tests Test 05/10/21 15:03 05/10/21 17:20 05/10/21 21:00 05/11/21 05:00 O2 Saturation 95 % (92-99) Arterial Blood pH 7.42 (7.35-7.45) Arterial Blood pCO2 at Patient Temp 25 mmHg (35-46) Arterial Blood pO2 at Patient Temp 75 mmHg (65-108) Arterial Blood HCO3 16 mmol/L (21-28) Arterial Blood Base Excess -6 mmol/L (-3-3) Oxyhemoglobin 94.0 % Methemoglobin 0.2 % (0.0-1.9) Carbon Monoxide, Quantitative 0.6 % (0.0-1.9) FiO2 21/ra Glucose (Fingerstick) 117 mg/dL (70-99) 151 mg/dL (70-99) White Blood Count 12.0 x10^3/uL (4.0-11.0) Red Blood Count 5.23 x10^6/uL (4.30-5.70) Hemoglobin 14.0 g/dL (13.0-17.5) Hematocrit 43.8 % (39.0-53.0) Mean Corpuscular Volume 84 fL (79-100) Mean Corpuscular Hemoglobin 27 pg (25-35) Mean Corpuscular Hemoglobin Concent 32 g/dL (31-37) Red Cell Distribution Width 16.4 % (11.5-14.5) Platelet Count 353 x10^3/uL (140-400) Neutrophils (%) (Auto) 81 % (31-73) Lymphocytes (%) (Auto) 7 % (24-48) Monocytes (%) (Auto) 9 % (0-9) Eosinophils (%) (Auto) 3 % (0-3) Basophils (%) (Auto) 0 % (0-3) Neutrophils # (Auto) 9.7 x10^3/uL (1.8-7.7) Lymphocytes # (Auto) 0.8 x10^3/uL (1.0-4.8) Monocytes # (Auto) 1.0 x10^3/uL (0.0-1.1) Eosinophils # (Auto) 0.4 x10^3/uL (0.0-0.7) Basophils # (Auto) 0.0 x10^3/uL (0.0-0.2) Sodium Level 139 mmol/L (136-145) Potassium Level 3.0 mmol/L (3.5-5.1) Chloride Level 103 mmol/L (98-107) Carbon Dioxide Level 21 mmol/L (21-32) Anion Gap 15 (6-14) Blood Urea Nitrogen 44 mg/dL (8-26) Creatinine 2.2 mg/dL (0.7-1.3) Estimated GFR (Cockcroft-Gault) 30.7 Glucose Level 93 mg/dL (70-99) Calcium Level 8.6 mg/dL (8.5-10.1) Test 05/11/21 08:27 05/11/21 12:07 Glucose (Fingerstick) 95 mg/dL (70-99) 133 mg/dL (70-99) Review of Systems Review of Systems: CONSTITUTIONAL: No fever or chills CARDIOVASCULAR: No chest pain, no palpitations, no chest pressure RESPIRATORY: No shortness of breath, cough GI: No nausea, vomiting, or diarrhea, abdominal pain NEURO: No headache, dizziness Assessment and Plan Assessmemt and Plan ASSESSMENT BL LE cellulitis Elevated troponin I (0.265) Newly diagnosed diabetes, type 2 ANDREEA Hyponatremia, resolved PVD Left great toe diabetic ulcer HTN H/o colon cancer in 2011 PLAN Cardiac monitoring Wound care IV antibiotics Monitor blood cultures Trend labs PT/OT DVT ppx Full code Appreciate subspecialist input Comment Review of Relevant I have reviewed the following items rosa (where applicable) has been applied. Medications: Current Medications Medications (Trade) Dose Ordered Sig/Mata Route PRN Reason Start Time Stop Time Status Last Admin Dose Admin Micafungin Sodium 100 mg/Dextrose 100 ml @ 100 mls/hr Q24H IV 05/11/21 10:00 05/11/21 10:31 Justifications for Admission General Conditions Abnormal capillary refill?: Yes Justification for admission: Patient has tachycardia (> 100 beats per minute) or hypotension (SBP < 90 mm Hg) leading to inadequate systemic perfusion as indicated by new abnormal capillary refill of greater than 3 seconds. Other justification for admit: severe pvd Other Justification RADHA BROWN III DO May 11, 2021 13:10
[2021-05-11 15:10] VITALS: BP 122/88
[2021-05-11] MEDS ORDERED: POTASSIUM CHLORIDE 20 MEQ TABLET.ER. PO ONE (16:30)
--- NOTE | 2021-05-11 17:22 | PDOC2 ---
CONSULT Date of Consult Date of Consult DATE: 05/11/21 TIME: 1300 Reason for Consult Reason for Consult: CKD Identification/Chief Complaint Chief Complaint No acute concerns or complaints currently Source Source: Chart review, Patient History of Present Illness Reason for Visit: Pt is a 60-year-old CM who presented to [facility] with complaints of bilateral lower extremity wounds, failed outpatient treatment. He was [facility]fer[facility] to [facility] on 05/07 . He developed rash on both lower extremities about a month ago. He initially thought that was just skin irritation as he has a Hx of Eczema , but it progressively got worse with redness, erythema, open wounds, nonhealing despite outpatient wound clinic treatment. Denies any fever, chills, nausea, vomiting, diarrhea, abdominal pain. His PCP is Dr. Gabriel, he is not aware of any Dx of CKD/abnormal Kidney labs. He reports he has been recently Dx with DM Denies use of NSAID's, No recent med changes prior to hospitalization . Denies any Urinary complaints, No Hx of UTI, denies symptoms of BPH . Upon presentation, he was found to have ANDREEA, lactic acidosis Past Medical History Cardiovascular: HTN Endocrine: Diabetes Dermatology: Eczema, Cellulitis Past Surgical History Past Surgical History: Cholecystectomy, Colon Resection Family History Family History: Diabetes, Hypertension Social History Social History: Parent No ALCOHOL: none Drugs: None Lives: Alone Domestic Violence: Neg Current Medications Current Medications Current Medications Sodium Chloride (Normal Saline Flush) 3 ml QSHIFT PRN IV AFTER MEDS AND BLOOD DRAWS; Start 05/07/21 at 15:15 Sodium Chloride 1,000 ml @ 75 mls/hr [id number] IV ; Start 05/07/21 at 15:15; Stop 05/07/21 at 17:48; Status DC Ondansetron HCl (Zofran) 4 mg PRN Q4HRS PRN IV NAUSEA/VOMITING Last admi nistered on 05/11/21at 08:29; Start 05/07/21 at 15:15 Acetaminophen (Tylenol) 650 mg PRN Q4HRS PRN PO TEMP OVER 100.4F OR MILD PAIN Last administered on 05/08/21at 15:11; Start 05/07/21 at 15:15 Al Hydroxide/Mg Hydroxide (Mylanta Plus Xs) 30 ml PRN DAILY PRN PO HEARTBURN / GAS; Start 05/07/21 at 15:15 Docusate Sodium (Colace) 100 mg PRN BID PRN PO HARD STOOLS; Start 05/07/21 at 15:15 Albuterol Sulfate (Ventolin Neb Soln) 2.5 mg PRN Q4HRS PRN NEB SHORTNESS OF BREATH; Start 05/07/21 at 15:15 Guaifenesin (Robitussin) 200 mg PRN Q4HRS PRN PO COUGH; Start 05/07/21 at 15:15 Enoxaparin Sodium (Lovenox 40mg Syringe) 40 mg Q24H SQ Last administered on 05/10/21at 21:32; Start 05/07/21 at 21:00 Insulin Human Lispro (HumaLOG) 0-9 UNITS TIDWMEALS SQ Last administered on 05/09/21at 18:16; Start 05/07/21 at 17:30 Dextrose (Dextrose 50%-Water Syringe) 12.5 gm PRN Q15MIN PRN IV SEE COMMENTS; Start 05/07/21 at 17:15; Status Cancel Sodium Chloride 1,000 ml @ 150 mls/hr Q6H40M IV Last administered on 05/11/21at 13:20; Start 05/07/21 at 17:15 Lactobacillus Rhamnosus (Culturelle) 1 cap BID PO Last administered on 05/11/21at 08:29; Start 05/07/21 at 21:00 Morphine Sulfate (Morphine Sulfate) 4 mg PRN Q2HR PRN IV PAIN Last administered on 05/11/21at 16:51; Start 05/07/21 at 17:15 Nifedipine (Procardia Xl) 30 mg DAILY PO Last administered on 05/11/21at 08:32; Start 05/08/21 at 09:00 Piperacillin Sod/ Tazobactam Sod (Zosyn Per Pharmacy) 1 each PRN DAILY PRN MC SEE COMMENTS; Start 05/07/21 at 17:15 Piperacillin Sod/ Tazobactam Sod 3.375 gm/Sodium Chloride 50 ml @ 100 mls/hr Q6HRS IV Last administered on 05/11/21at 16:50; Start 05/07/21 at 18:00 Vancomycin HCl (Vanco Per Pharmacy) 1 each PRN DAILY PRN MC SEE COMMENTS; Start 05/07/21 at 17:15; Stop 05/07/21 at 17:50; Status DC Vancomycin HCl 1.75 gm/Sodium Chloride 500 ml @ 250 mls/hr Q12H IV ; Start 05/07/21 at 20:00; Stop 05/07/21 at 17:48; Status DC Zolpidem Tartrate (Ambien) 5 mg PRN QHS PRN PO INSOMNIA Last administered on 05/10/21at 22:44; Start 05/07/21 at 17:15 Insulin Glargine (Lantus Syringe) 10 unit QHS SQ Last administered on 05/10/21at 21:38; Start 05/07/21 at 21:00 Insulin Human Lispro (HumaLOG) 0-5 UNITS TIDWMEALS SQ ; Start 05/08/21 at 08:00; Status Cancel Dextrose (Dextrose 50%-Water Syringe) 12.5 gm PRN Q15MIN PRN IV SEE COMMENTS; Start 05/07/21 at 18:00 Daptomycin 570 mg/ Sodium Chloride 50 ml @ 100 mls/hr Q24H IV Last administered on 05/11/21at 10:30; Start 05/08/21 at 11:00 Multivitamins/ Minerals (I-Eliazar) 1 tab DAILY PO Last administered on 05/11/21at 08:29; Start 05/08/21 at 15:00 Ascorbic Acid (Vitamin C) 500 mg DAILY PO Last administered on 05/11/21at 08:30; Start 05/08/21 at 15:00 Aspirin (Ecotrin) 81 mg DAILYWBKFT PO Last administered on 05/11/21at 08:29; Start 05/09/21 at 08:00 Lidocaine HCl (Xylocaine 2% Topical 30gm Tube) 1 rowdy 1X ONCE TP Last administered on 05/09/21at 14:14; Start 05/09/21 at 09:30; Stop 05/09/21 at 09:35; Status DC Diphenhydramine HCl (Benadryl) 25 mg PRN Q6HRS PRN IVP ITCHING Last administered on 05/09/21at 12:16; Start 05/09/21 at 11:15 Diphenhydramine HCl (Benadryl) 25 mg PRN Q6HRS PRN PO ITCHING Last administered on 05/09/21at 21:53; Start 05/09/21 at 11:15 Throat Lozenges (Cepacol Sore Throat Lozenge) 1 asya PRN Q2HRS PRN PO SORE THROAT; Start 05/09/21 at 19:30 Phenol (Chloraseptic) 1 spray PRN Q2HR PRN PO SORE THROAT- 2ND CHOICE Last administered on 05/09/21at 19:38; Start 05/09/21 at 19:30 Micafungin Sodium 100 mg/Dextrose 100 ml @ 100 mls/hr Q24H IV Last administered on 05/11/21at 10:31; Start 05/11/21 at 10:00 Potassium Chloride (Klor-Con) 20 meq 1X ONCE PO Last administered on 05/11/21at 16:50; Start 05/11/21 at 16:30; Stop 05/11/21 at 16:31; Status DC Allergies Allergies: Coded Allergies: No Known Drug Allergies (Unverified , 05/07/21) ROS Review of System As per HPI, rest of the ROS is negative Physical Exam Physical Exam GENERAL: no acute distress,n HEENT: Normocephalic, atraumatic. Anicteric. OM moist NECK: Supple, LUNGS: Clear, non labored HEART: S1, S2. No murmurs. ABDOMEN: Soft, nontender, nondistended. EXTREMITIES: Bilateral lower extremity dressing in place, DERM: exam per ID - bilateral lower extremity excoriation in the thigh. Bilateral foot callus, left toe greater than right toe. Right lower extremity wounds with ulceration noted numerous. No gross purulence noted. . No nuno, No CVA or SP tenderness NEURO Grossly normal PSYCH Cooperative Vital Signs Vital Signs Date Time Temp Pulse Resp B/P (MAP) Pulse Ox O2 Delivery O2 Flow Rate FiO2 05/11/21 16:51 94 Room Air 05/11/21 15:10 97.7 102 16 122/88 (99) 97.7 Assessment & Plan ANDREEA - ATN vs AIN , baseline Unknown , UA unremarkable (except protein/Ketone), No Micr hematuria, No casts; Renal US unremarkable (Pre Void reported 450 mls, ? Post Vid not reported) Supportive care, Monitor, I/O, avoid Nephrotoxins , fluid balance Possible CKD- baseline Unknown, obtain records from PCP(Dr. Gabriel) HypoKalemia replace as indicated BL LE cellulitis Newly diagnosed diabetes, type 2 Hyponatremia, resolved Chest Xray Persistent bilateral basilar linear opacities most likely atelectasis cannot exclude infection. Pulmonary vascular congestion versus crowding. PVD- Vascular surgery consulted HTN BP stable H/o colon cancer in 2012 Labs Labs Laboratory Tests Test 05/09/21 20:31 05/10/21 07:25 05/10/21 07:40 05/10/21 11:59 Glucose (Fingerstick) 183 mg/dL (70-99) 99 mg/dL (70-99) 124 mg/dL (70-99) White Blood Count 9.0 x10^3/uL (4.0-11.0) Red Blood Count 5.07 x10^6/uL (4.30-5.70) Hemoglobin 13.8 g/dL (13.0-17.5) Hematocrit 42.3 % (39.0-53.0) Mean Corpuscular Volume 83 fL (79-100) Mean Corpuscular Hemoglobin 27 pg (25-35) Mean Corpuscular Hemoglobin Concent 33 g/dL (31-37) Red Cell Distribution Width 16.3 % (11.5-14.5) Platelet Count 301 x10^3/uL (140-400) Neutrophils (%) (Auto) 83 % (31-73) Lymphocytes (%) (Auto) 6 % (24-48) Monocytes (%) (Auto) 8 % (0-9) Eosinophils (%) (Auto) 2 % (0-3) Basophils (%) (Auto) 0 % (0-3) Neutrophils # (Auto) 7.5 x10^3/uL (1.8-7.7) Lymphocytes # (Auto) 0.6 x10^3/uL (1.0-4.8) Monocytes # (Auto) 0.7 x10^3/uL (0.0-1.1) Eosinophils # (Auto) 0.2 x10^3/uL (0.0-0.7) Basophils # (Auto) 0.0 x10^3/uL (0.0-0.2) Sodium Level 138 mmol/L (136-145) Potassium Level 3.7 mmol/L (3.5-5.1) Chloride Level 104 mmol/L (98-107) Carbon Dioxide Level 23 mmol/L (21-32) Anion Gap 11 (6-14) Blood Urea Nitrogen 49 mg/dL (8-26) Creatinine 2.1 mg/dL (0.7-1.3) Estimated GFR (Cockcroft-Gault) 32.4 Glucose Level 95 mg/dL (70-99) Calcium Level 8.4 mg/dL (8.5-10.1) Test 05/10/21 15:03 05/10/21 17:20 05/10/21 21:00 05/11/21 05:00 O2 Saturation 95 % (92-99) Arterial Blood pH 7.42 (7.35-7.45) Arterial Blood pCO2 at Patient Temp 25 mmHg (35-46) Arterial Blood pO2 at Patient Temp 75 mmHg (65-108) Arterial Blood HCO3 16 mmol/L (21-28) Arterial Blood Base Excess -6 mmol/L (-3-3) Oxyhemoglobin 94.0 % Methemoglobin 0.2 % (0.0-1.9) Carbon Monoxide, Quantitative 0.6 % (0.0-1.9) FiO2 Glucose (Fingerstick) 117 mg/dL (70-99) 151 mg/dL (70-99) White Blood Count 12.0 x10^3/uL (4.0-11.0) Red Blood Count 5.23 x10^6/uL (4.30-5.70) Hemoglobin 14.0 g/dL (13.0-17.5) Hematocrit 43.8 % (39.0-53.0) Mean Corpuscular Volume 84 fL (79-100) Mean Corpuscular Hemoglobin 27 pg (25-35) Mean Corpuscular Hemoglobin Concent 32 g/dL (31-37) Red Cell Distribution Width 16.4 % (11.5-14.5) Platelet Count 353 x10^3/uL (140-400) Neutrophils (%) (Auto) 81 % (31-73) Lymphocytes (%) (Auto) 7 % (24-48) Monocytes (%) (Auto) 9 % (0-9) Eosinophils (%) (Auto) 3 % (0-3) Basophils (%) (Auto) 0 % (0-3) Neutrophils # (Auto) 9.7 x10^3/uL (1.8-7.7) Lymphocytes # (Auto) 0.8 x10^3/uL (1.0-4.8) Monocytes # (Auto) 1.0 x10^3/uL (0.0-1.1) Eosinophils # (Auto) 0.4 x10^3/uL (0.0-0.7) Basophils # (Auto) 0.0 x10^3/uL (0.0-0.2) Sodium Level 139 mmol/L (136-145) Potassium Level 3.0 mmol/L (3.5-5.1) Chloride Level 103 mmol/L (98-107) Carbon Dioxide Level 21 mmol/L (21-32) Anion Gap 15 (6-14) Blood Urea Nitrogen 44 mg/dL (8-26) Creatinine 2.2 mg/dL (0.7-1.3) Estimated GFR (Cockcroft-Gault) 30.7 Glucose Level 93 mg/dL (70-99) Calcium Level 8.6 mg/dL (8.5-10.1) Test 05/11/21 08:27 05/11/21 12:07 05/11/21 16:41 Glucose (Fingerstick) 95 mg/dL (70-99) 133 mg/dL (70-99) 133 mg/dL (70-99) Laboratory Tests Test 05/10/21 17:20 05/10/21 21:00 05/11/21 05:00 05/11/21 08:27 Glucose (Fingerstick) 117 mg/dL (70-99) 151 mg/dL (70-99) 95 mg/dL (70-99) White Blood Count 12.0 x10^3/uL (4.0-11.0) Red Blood Count 5.23 x10^6/uL (4.30-5.70) Hemoglobin 14.0 g/dL (13.0-17.5) Hematocrit 43.8 % (39.0-53.0) Mean Corpuscular Volume 84 fL (79-100) Mean Corpuscular Hemoglobin 27 pg (25-35) Mean Corpuscular Hemoglobin Concent 32 g/dL (31-37) Red Cell Distribution Width 16.4 % (11.5-14.5) Platelet Count 353 x10^3/uL (140-400) Neutrophils (%) (Auto) 81 % (31-73) Lymphocytes (%) (Auto) 7 % (24-48) Monocytes (%) (Auto) 9 % (0-9) Eosinophils (%) (Auto) 3 % (0-3) Basophils (%) (Auto) 0 % (0-3) Neutrophils # (Auto) 9.7 x10^3/uL (1.8-7.7) Lymphocytes # (Auto) 0.8 x10^3/uL (1.0-4.8) Monocytes # (Auto) 1.0 x10^3/uL (0.0-1.1) Eosinophils # (Auto) 0.4 x10^3/uL (0.0-0.7) Basophils # (Auto) 0.0 x10^3/uL (0.0-0.2) Sodium Level 139 mmol/L (136-145) Potassium Level 3.0 mmol/L (3.5-5.1) Chloride Level 103 mmol/L (98-107) Carbon Dioxide Level 21 mmol/L (21-32) Anion Gap 15 (6-14) Blood Urea Nitrogen 44 mg/dL (8-26) Creatinine 2.2 mg/dL (0.7-1.3) Estimated GFR (Cockcroft-Gault) 30.7 Glucose Level 93 mg/dL (70-99) Calcium Level 8.6 mg/dL (8.5-10.1) Test 05/11/21 12:07 05/11/21 16:41 Glucose (Fingerstick) 133 mg/dL (70-99) 133 mg/dL (70-99) Review All relevant outside records, renal labs, imaging studies, telemetry/EKG's were reviewed. Images Images EXAM: RENAL ULTRASOUND CLINICAL HISTORY: Acute kidney injury COMPARISON: None available. TECHNIQUE: Ultrasound examination of the bilateral kidneys and urinary bladder was performed. FINDINGS: Visualization of kidneys is limited due to bowel gas. The right kidney measures 13.3 x 6.7 x 7.2 cm. The left kidney measures 11.0 x 5.8 x 6.7 cm. Grossly normal echogenicity and cortical thickness. No hydronephrosis. Urinary bladder prevoid volume is 430 cc. No wall thickening or mass visualized. Ureteral jets are not visualized. IMPRESSION: No hydronephrosis. ELLI SMITH MD May 11, 2021 17:22
[2021-05-11 19:00] VITALS: BP 143/91
[2021-05-11] MEDS: ENOXAPARIN 40 MG/0.4 ML SYRINGE. SQ SCH (20:58)
[2021-05-11] MEDS: INSULIN GLARGINE SYRINGE. SQ SCH (21:07)
[2021-05-11 23:00] VITALS: BP 158/99
[2021-05-11] MEDS: ZOLPIDEM 5 MG TABLET. PO PRN (23:08)
[2021-05-12 03:00] VITALS: BP 160/102
[2021-05-12] MEDS: IV NORMAL SALINE 1000ML BAG 1,000 ML IV SCH ×3 (03:23→17:09)
[2021-05-12] MEDS: MORPHINE SULFATE 4 MG/ML INJ. IV PRN ×2 (03:23→08:37)
[2021-05-12] MEDS: PIPERACILLIN/TAZOBACTAM 3.375 GM in IV NORMAL SALINE 50ML 50 ML IV SCH ×4 (06:24→23:40)
--- NOTE | 2021-05-12 06:59 | PDOC ---
[employer] PROGRESS NOTE Date of Service DOS: DATE: 05/12/21 TIME: 06:51 Chief Complaint Chief Complaint A/P: Bilateral lower extremity cellulitis - ID consulted, on vancomycin, micafungin Elevated troponin I (0.265) Newly diagnosed diabetes, type 2 - A1C 11.7 ANDREEA - on CKD, vasmotor nephropathy Hyponatremia, resolved PVD Left great toe diabetic ulcer H/o colon cancer in 2011 Lactic acidosis - due to cellulitis, improved Chronic systolic CHF - 2D echo showed EF 20-25%. CXR does not show any overt fluid overload. Ischemic evaluation once cellulitis resolves, possibly as outpatient Hypertensive urgency - now controlled. PAD - arterial duplex with occlusion of left peroneal artery. No major vascular stenosis above the knee - manage conservatively per vascular team FEN - ADA cardiac diet PPX - heparin FULL CODE Dispo - inpatient History of Present Illness History of Present Illness Mr Coffey is a 60-year-old man is medical history hypertension and newly diagnosed diabetes who is transferred from [facility], with bilateral lower ext cellulitis, suspected PVD , near occlusion of left peroneal artery by doppler 05/07/21. Cr 1.5 na = 131, bun 35, glucose 506, troponin i 0.105, BGB 14.6 LA 2.4 K=4.8 CRP 293 PLTS 297 ESR =34 Transferred for vascular surgery consult, ID consult, cardiology consult and wound care consults. Was treated with iv vancomycin, heparin drip prior to transfer here 05/08: Afebrile. Clean dry intact dressing on bilateral LE. Run of PVCs on cardiac tech during exam 05/09: Afebrile. Clean dry intact dressing on bilateral LE 05/10: Afebrile. Clean dry intact dressing on bilateral LE. Continue IV ZOSYN and cont IV daptomycin. ECHO left ventricular systolic function is severely diminished EF 20-25%. 05/11: Patient seen and examined. Sitting up in bed, alert, NAD. Afebrile. Clean dry intact dressing on BL LE Afebrile. Pain is not well controlled. Leg swelling slow to improve. Vitals/I&O Vitals/I&O: Vital Signs Date Time Temp Pulse Resp B/P (MAP) Pulse Ox O2 Delivery O2 Flow Rate FiO2 05/12/21 03:53 20 Room Air 05/12/21 03:00 98.7 104 160/102 (121) 93 98.7 I & O 05/11/21 05/11/21 05/12/21 15:00 23:00 07:00 Intake Total 780 ml 500 ml Balance 780 ml 500 ml Physical Exam Physical Exam: GENERAL: Alert, oriented x 3 male in no acute distress, nontoxic appearing. HEENT: Normocephalic, atraumatic. Anicteric. No thrush. Dentition poor. NECK: Supple, no JVD. LUNGS: Clear. HEART: S1, S2. No murmurs. ABDOMEN: Soft, nontender, nondistended. EXTREMITIES: Bilateral lower extremity dressing in place, intact, not taken down. DERM: Wound pictures noted in chart. The patient has bilateral lower extremity excoriation in the thigh. Bilateral foot callus, left toe greater than right toe. Right lower extremity wounds with ulceration noted numerous. No gross purulence noted. Edema present. LUE PICC line clean General: Alert, Oriented X3, Cooperative, No acute distress Heart: Regular rate Lungs: Clear Abdomen: Soft, No tenderness Extremities: No cyanosis, Other (Palpable pulse exam bilaterally with normal dorsalis pedis pulses, normal sounding posterior tibial Doppler signals, palpable femoral and popliteal pulses bilaterally) Skin: Other (Extensive superficial ulcerations bilateral lower extremities with sites of necrotic large ulcerations with 3 mm of depth. The left great toe demonstrates a Montes 1 ulceration with skin breakdown only and foot dorsum bilaterally shows unspecified severity diabetic ulcerations) Labs Labs: Laboratory Tests Test 05/11/21 08:27 05/11/21 12:07 05/11/21 16:41 05/11/21 20:20 Glucose (Fingerstick) 95 mg/dL (70-99) 133 mg/dL (70-99) 133 mg/dL (70-99) 196 mg/dL (70-99) Comment Review of Relevant I have reviewed the following items rosa (where applicable) has been applied. Medications: Current Medications Medications (Trade) Dose Ordered Sig/Mata Route PRN Reason Start Time Stop Time Status Last Admin Dose Admin Micafungin Sodium 100 mg/Dextrose 100 ml @ 100 mls/hr Q24H IV 05/11/21 10:00 05/11/21 10:31 Potassium Chloride (Klor-Con) 20 meq 1X ONCE PO 05/11/21 16:30 05/11/21 16:31 DC 05/11/21 16:50 Justifications for Admission General Conditions Abnormal capillary refill?: Yes Justification for admission: Patient has tachycardia (> 100 beats per minute) or hypotension (SBP < 90 mm Hg) leading to inadequate systemic perfusion as indicated by new abnormal capillary refill of greater than 3 seconds. Other justification for admit: severe pvd Other Justification LELAND AGEE MD May 12, 2021 06:59
[2021-05-12 07:00] VITALS: BP 157/97
[2021-05-12] MEDS: INSULIN LISPRO 300 UNITS/3 ML VIAL. SQ SCH ×3 (08:00→17:10)
[2021-05-12] MEDS: LACTOBACILLUS RHAMNOSUS GG 1 CAPSULE. PO SCH ×2 (08:35→20:59)
[2021-05-12] MEDS: MULTIVITAMIN I-VITE TABLET. PO SCH (08:35)
[2021-05-12] MEDS: ASCORBIC ACID 500 MG TABLET PO SCH (08:35)
[2021-05-12] MEDS: ASPIRIN ENTERIC COATED 81 MG TABLET.DR. PO SCH (08:36)
--- NOTE | 2021-05-12 09:25 | PDOC ---
DATE OF SERVICE DATE: 05/12/21 TIME: 09:24 SUBJECTIVE ROS stable, no new concerns or complaints OBJECTIVE Vital Signs Vital Signs Date Time Temp Pulse Resp B/P (MAP) Pulse Ox O2 Delivery O2 Flow Rate FiO2 05/12/21 08:37 Room Air 05/12/21 08:36 157/97 05/12/21 07:00 97.7 100 22 96 97.7 I & 0 Intake and Output 05/12/21 07:00 Intake Total 1280 ml Balance 1280 ml Intake Oral 1280 ml # Voids 1 # Bowel Movements 1 PHYSICAL EXAM Physical Exam GENERAL: no acute distress,n HEENT: Normocephalic, atraumatic. Anicteric. OM moist NECK: Supple, LUNGS: Clear, non labored HEART: S1, S2. No murmurs. ABDOMEN: Soft, nontender, nondistended. EXTREMITIES: Bilateral lower extremity dressing in place, DERM: exam per ID - bilateral lower extremity excoriation in the thigh. Bilateral foot callus, left toe greater than right toe. Right lower extremity wounds with ulceration noted numerous. No gross purulence noted. . No nuno, No CVA or SP tenderness NEURO Grossly normal PSYCH Cooperative Vital Signs DIAGNOSIS/ASSESSMENT Assessment & Plan ANDREEA - ATN vs AIN , baseline Unknown , UA unremarkable (except protein/Ketone), No Micr hematuria, No casts; Renal US unremarkable , Renal function improving ,Supportive care, Monitor, I/O, avoid Nephrotoxins , fluid balance Possible CKD- baseline Unknown, obtain records from PCP(Dr. Gabriel) HypoKalemia - resolved replace as indicated BL LE cellulitis Newly diagnosed diabetes, type 2 Hyponatremia, resolved Chest Xray Persistent bilateral basilar linear opacities most likely atelectasis cannot exclude infection. Pulmonary vascular congestion versus crowding. PVD- Vascular surgery consulted HTN BP stable H/o colon cancer in 2012 COMMENT/RELEVANT DATA Meds Current Medications Medications (Trade) Dose Ordered Sig/Mata Start Time Stop Time Status Last Admin Dose Admin Acetaminophen (Tylenol) 650 mg PRN Q4HRS PRN 05/07/21 15:15 05/08/21 15:11 650 MG Al Hydroxide/Mg Hydroxide (Mylanta Plus Xs) 30 ml PRN DAILY PRN 05/07/21 15:15 Albuterol Sulfate (Ventolin Neb Soln) 2.5 mg PRN Q4HRS PRN 05/07/21 15:15 Ascorbic Acid (Vitamin C) 500 mg DAILY 05/08/21 15:00 05/12/21 08:35 500 MG Aspirin (Ecotrin) 81 mg [id number] 05/09/21 08:00 05/12/21 08:36 81 MG Daptomycin 570 mg/ Sodium Chloride 50 ml @ 100 mls/hr Q24H 05/08/21 11:00 05/11/21 10:30 100 MLS/HR Dextrose (Dextrose 50%-Water Syringe) 12.5 gm PRN Q15MIN PRN 05/07/21 18:00 Diphenhydramine HCl (Benadryl) 25 mg PRN Q6HRS PRN 05/09/21 11:15 05/09/21 21:53 25 MG Docusate Sodium (Colace) 100 mg PRN BID PRN 05/07/21 15:15 Enoxaparin Sodium (Lovenox 40mg Syringe) 40 mg Q24H 05/07/21 21:00 05/11/21 20:58 40 MG Guaifenesin (Robitussin) 200 mg PRN Q4HRS PRN 05/07/21 15:15 Insulin Glargine (Lantus Syringe) 10 unit QHS 05/07/21 21:00 05/11/21 21:07 10 UNIT Insulin Human Lispro (HumaLOG) 0-5 UNITS TIDWMEALS 05/08/21 08:00 Cancel Lactobacillus Rhamnosus (Culturelle) 1 cap BID 05/07/21 21:00 05/12/21 08:35 1 CAP Lidocaine HCl (Xylocaine 2% Topical 30gm Tube) 1 rowdy 1X ONCE 05/09/21 09:30 05/09/21 09:35 DC 05/09/21 14:14 1 ROWDY Micafungin Sodium 100 mg/Dextrose 100 ml @ 100 mls/hr Q24H 05/11/21 10:00 05/11/21 10:31 100 MLS/HR Morphine Sulfate (Morphine Sulfate) 4 mg PRN Q2HR PRN 05/07/21 17:15 05/12/21 08:37 4 MG Multivitamins/ Minerals (I-Eliazar) 1 tab DAILY 05/08/21 15:00 05/12/21 08:35 1 TAB Nifedipine (Procardia Xl) 30 mg DAILY 05/08/21 09:00 05/12/21 08:36 30 MG Ondansetron HCl (Zofran) 4 mg PRN Q4HRS PRN 05/07/21 15:15 05/11/21 08:29 4 MG Phenol (Chloraseptic) 1 spray PRN Q2HR PRN 05/09/21 19:30 05/09/21 19:38 1 SPRAY Piperacillin Sod/ Tazobactam Sod (Zosyn Per Pharmacy) 1 each PRN DAILY PRN 05/07/21 17:15 Piperacillin Sod/ Tazobactam Sod 3.375 gm/Sodium Chloride 50 ml @ 100 mls/hr Q6HRS 05/07/21 18:00 05/12/21 06:24 100 MLS/HR Potassium Chloride (Klor-Con) 20 meq 1X ONCE 05/11/21 16:30 05/11/21 16:31 DC 05/11/21 16:50 20 MEQ Sodium Chloride 1,000 ml @ 150 mls/hr Q6H40M 05/07/21 17:15 05/12/21 03:23 150 MLS/HR Sodium Chloride (Normal Saline Flush) 3 ml QSHIFT PRN 05/07/21 15:15 Throat Lozenges (Cepacol Sore Throat Lozenge) 1 asya PRN Q2HRS PRN 05/09/21 19:30 Vancomycin HCl (Vanco Per Pharmacy) 1 each PRN DAILY PRN 05/07/21 17:15 05/07/21 17:50 DC Vancomycin HCl 1.75 gm/Sodium Chloride 500 ml @ 250 mls/hr Q12H 05/07/21 20:00 05/07/21 17:48 DC Zolpidem Tartrate (Ambien) 5 mg PRN QHS PRN 05/07/21 17:15 05/11/21 23:08 5 MG Lab Laboratory Tests Test 05/11/21 12:07 05/11/21 16:41 05/11/21 20:20 05/12/21 07:38 Glucose (Fingerstick) 133 mg/dL (70-99) 133 mg/dL (70-99) 196 mg/dL (70-99) 94 mg/dL (70-99) Results All relevant outside records, renal labs, imaging studies, telemetry/EKG's were reviewed. Justicifation of Admission Dx: Justifications for Admission: Justification of Admission Dx: Yes ELLI SMITH MD May 12, 2021 09:25
--- NOTE | 2021-05-12 09:54 | PDOC ---
Infectious Disease Note Subjective: Subjective Patient feels better Denies fever, chills, nausea, vomiting, diarrhea, abdominal pain Bilateral lower extremity swelling is improving though slowly Vital Signs: Vital Signs Vital Signs Date Time Temp Pulse Resp B/P (MAP) Pulse Ox O2 Delivery O2 Flow Rate FiO2 05/12/21 08:37 Room Air 05/12/21 08:36 157/97 05/12/21 07:00 97.7 100 22 96 97.7 Physical Exam: PHYSICAL EXAM GENERAL: Alert, oriented x 3 male in no acute distress, nontoxic appearing. HEENT: Normocephalic, atraumatic. Anicteric. No thrush. Dentition poor. NECK: Supple, no JVD. LUNGS: Clear. HEART: S1, S2. No murmurs. ABDOMEN: Soft, nontender, nondistended. EXTREMITIES: Bilateral lower extremity dressing in place, intact, not taken down. DERM: Wound pictures noted in chart. The patient has bilateral lower extremity excoriation in the thigh. Bilateral foot callus, left toe greater than right toe. Right lower extremity wounds with ulceration noted numerous. No gross purulence noted. Edema present. LUE PICC line clean Medications: Inpatient Meds: Medications reviewed. Labs: Lab Laboratory Tests Test 05/11/21 12:07 05/11/21 16:41 05/11/21 20:20 05/12/21 07:38 Glucose (Fingerstick) 133 mg/dL (70-99) 133 mg/dL (70-99) 196 mg/dL (70-99) 94 mg/dL (70-99) Objective: Assessment: 1. Bilateral lower extremity chronic wounds. 2. Mild superimposed infection. 3. Peripheral arterial disease. 4. Leukocytosis, was on steroids. 5. Lactic acidosis. 6. Acute kidney injury. 7. Uncontrolled diabetes. 8. History of noncompliance. 9. Eczema. 10. History of colon cancer. Plan: Plan of Care 1. Continue Zosyn, dose micafungin 2. cont daptomycin.CK wnl on 05/09 Transition to p.o. antibiotics soon 3. Continue local wound care. 4. Elevate legs. 5. Vascular Surgery consult noted. 6. Offload. 7. Optimal diabetes control. 8. Optimal edema control. 9. Follow up labs and cultures. 10. Continue supportive care. EH BASS MD May 12, 2021 09:54
[2021-05-12] MEDS: MICAFUNGIN 100 MG in IV DEXTROSE 5% 100ML 100 ML IV SCH (09:58)
[2021-05-12] MEDS: traMADol 50 MG TABLET PO PRN ×3 (10:14→22:42)
[2021-05-12 10:47] LABS: BASO # 0.1 x10^3/uL (0.0-0.2); BASO % 1 % (0-3); EOS # 0.4 x10^3/uL (0.0-0.7); EOS % 3 % (0-3); HEMATOCRIT 42.1 % (39.0-53.0); HEMOGLOBIN 13.3 g/dL (13.0-17.5); LYMPH # 0.7 x10^3/uL (1.0-4.8); LYMPH % 6 % (24-48); MEAN CORPUSCULAR HEMOGLOBIN 27 pg (25-35); MEAN CORPUSCULAR HGB CONC 32 g/dL (31-37); MEAN CORPUSCULAR VOLUME 85 fL (79-100); MONO # 0.9 x10^3/uL (0.0-1.1); MONO % 8 % (0-9); NEUT # 9.3 x10^3/uL (1.8-7.7); NEUT % 82 % (31-73); PLATELET COUNT 379 x10^3/uL (140-400); RED BLOOD COUNT 4.96 x10^6/uL (4.30-5.70); RED CELL DISTRIBUTION WIDTH 15.9 % (11.5-14.5); WHITE BLOOD COUNT 11.4 x10^3/uL (4.0-11.0)
[2021-05-12 11:00] VITALS: BP 145/93
[2021-05-12 11:06] LABS: CALCIUM 8.6 mg/dL (8.5-10.1); CREATININE 1.9 mg/dL (0.7-1.3); GFR 36.3; POTASSIUM 3.6 mmol/L (3.5-5.1)
[2021-05-12] MEDS: DAPTOmycin (GENERIC) IVPB 570 MG in IV NORMAL SALINE 50ML 50 ML IV SCH (11:12)
--- NOTE | 2021-05-12 14:33 | NUR ---
SS following up with discharge planning. SS reviewed pt chart and discussed with pt RN. Pt is currently on room air. Pt on IV Micafungin, IV Daptomycin, and IV Zosyn. PT/OT recommended care home unit. Self pay. Med Assist following. Discharge plan is currently to home when medically ready for discharge. SS will continue to follow for discharge planning.
[2021-05-12 15:00] VITALS: BP 133/87
[2021-05-12] MEDS: MORPHINE SULFATE 2 MG/ML INJ. IVP PRN ×2 (17:10→21:03)
--- NOTE | 2021-05-12 18:34 | NUR ---
Wound Care Wound Type/Assessment: Wound care follow up for bilateral great toe DFU and bilateral lower leg cellulitis, the areas to bilateral legs are weeping with a moderate yellow drainage, the legs have a dark red appearance in some areas with multiple areas of yellow slough, both legs area edematous but better in appearance compared to last week. Eschar and slough areas on bilateral lower legs continue to be continue to be attached to wound bed, not candidate for bedside wound debridement at this time. All wounds cleansed and redressed and legs left elevated on pillows Treatment Recommendations/Plan: Recommendations for the bilateral great toe wounds: cleanse wound, apply therahoney gel and aquacel ag secure with gauze, change every 2-3 days. Recommendations for bilateral lower legs: cleanse the wounds then apply therahoney gel to the yellow slough areas then apply Aquacel ag over, cover with briefs, Kerlix and tape, then size G medigrips. change every other day. Patient needs to elevate bilateral lower legs with pillows. Education provided: Educated patient on the dressings. Recommendations: n/a Discharge Recommendations for dressings: Wound Care will f/u on 05/15 and re-eval the need for bedside debridement at that time. Continue with same dressings until further recommendations.
[2021-05-12 19:23] VITALS: BP 168/92
[2021-05-12] MEDS: ENOXAPARIN 40 MG/0.4 ML SYRINGE. SQ SCH (20:59)
[2021-05-12] MEDS: INSULIN GLARGINE SYRINGE. SQ SCH (20:59)
[2021-05-12 22:40] VITALS: BP 155/97
[2021-05-12] MEDS: ZOLPIDEM 5 MG TABLET. PO PRN (22:42)
[2021-05-13] MEDS: IV NORMAL SALINE 1000ML BAG 1,000 ML IV SCH (01:05)
[2021-05-13 02:24] VITALS: BP 139/87
[2021-05-13] MEDS: PIPERACILLIN/TAZOBACTAM 3.375 GM in IV NORMAL SALINE 50ML 50 ML IV SCH ×4 (05:19→23:51)
[2021-05-13 06:54] LABS: BASO # 0.1 x10^3/uL (0.0-0.2); BASO % 1 % (0-3); EOS # 0.2 x10^3/uL (0.0-0.7); EOS % 3 % (0-3); HEMATOCRIT 36.2 % (39.0-53.0); HEMOGLOBIN 11.8 g/dL (13.0-17.5); LYMPH # 0.6 x10^3/uL (1.0-4.8); LYMPH % 8 % (24-48); MEAN CORPUSCULAR HEMOGLOBIN 27 pg (25-35); MEAN CORPUSCULAR HGB CONC 33 g/dL (31-37); MEAN CORPUSCULAR VOLUME 83 fL (79-100); MONO # 0.6 x10^3/uL (0.0-1.1); MONO % 8 % (0-9); NEUT # 5.7 x10^3/uL (1.8-7.7); NEUT % 79 % (31-73); PLATELET COUNT 276 x10^3/uL (140-400); RED BLOOD COUNT 4.34 x10^6/uL (4.30-5.70); RED CELL DISTRIBUTION WIDTH 16.2 % (11.5-14.5); WHITE BLOOD COUNT 7.2 x10^3/uL (4.0-11.0)
[2021-05-13 07:00] VITALS: BP 141/92
[2021-05-13 07:15] LABS: CALCIUM 8.2 mg/dL (8.5-10.1); CREATININE 1.6 mg/dL (0.7-1.3); GFR 44.3; POTASSIUM 3.9 mmol/L (3.5-5.1)
--- NOTE | 2021-05-13 07:53 | PDOC ---
[employer] PROGRESS NOTE Date of Service DOS: DATE: 05/13/21 TIME: 07:52 Chief Complaint Chief Complaint A/P: Bilateral lower extremity cellulitis - ID consulted, on vancomycin, micafungin Elevated troponin I (0.265) Newly diagnosed diabetes, type 2 - A1C 11.8 ANDREEA - on CKD, vasmotor nephropathy Hyponatremia, resolved PVD Left great toe diabetic ulcer H/o colon cancer in 2011 Lactic acidosis - due to cellulitis, improved Chronic systolic CHF - 2D echo showed EF 20-25%. CXR does not show any overt fluid overload. Ischemic evaluation once cellulitis resolves, possibly as outpatient Hypertensive urgency - now controlled. PAD - arterial duplex with occlusion of left peroneal artery. No major vascular stenosis above the knee - manage conservatively per vascular team FEN - ADA cardiac diet PPX - heparin FULL CODE Dispo - inpatient History of Present Illness History of Present Illness Mr Coffey is a 60-year-old man is medical history hypertension and newly diagnosed diabetes who is transferred from [facility], with bilateral lower ext cellulitis, suspected PVD , near occlusion of left peroneal artery by doppler 05/07/21. Cr 1.5 na = 131, bun 35, glucose 506, troponin i 0.105, BGB 14.6 LA 2.4 K=4.8 CRP 293 PLTS 297 ESR =34 Transferred for vascular surgery consult, ID consult, cardiology consult and wound care consults. Was treated with iv vancomycin, heparin drip prior to transfer here 05/08: Afebrile. Clean dry intact dressing on bilateral LE. Run of PVCs on campus monitor during exam 05/09: Afebrile. Clean dry intact dressing on bilateral LE 05/10: Afebrile. Clean dry intact dressing on bilateral LE. Continue IV ZOSYN and cont IV daptomycin. ECHO left ventricular systolic function is severely diminished EF 20-25%. 05/11: Patient seen and examined. Sitting up in bed, alert, NAD. Afebrile. Clean dry intact dressing on BL LE 05/12: Afebrile. Pain is not well controlled. Leg swelling slow to improve. Cr down to 1.9. Still on zosyn and micfungin IV. Wound care applied medihoney Afebrile overnight. Cr to 1.6. BP and heart rate up. Discussed with infectious disease at least another day of IV antibiotics and antifungals. Will initiate carvedilol today. Vitals/I&O Vitals/I&O: Vital Signs Date Time Temp Pulse Resp B/P (MAP) Pulse Ox O2 Delivery O2 Flow Rate FiO2 05/13/21 02:24 97.7 93 22 139/87 (104) 97 Room Air 97.7 I & O 05/12/21 05/12/21 05/13/21 15:00 23:00 07:00 Intake Total 150 ml 1100 ml Balance 150 ml 1100 ml Physical Exam Physical Exam: GENERAL: Alert, oriented x 3 male in no acute distress, nontoxic appearing. HEENT: Normocephalic, atraumatic. Anicteric. No thrush. Dentition poor. NECK: Supple, no JVD. LUNGS: Clear. HEART: S1, S2. No murmurs. ABDOMEN: Soft, nontender, nondistended. EXTREMITIES: Bilateral lower extremity dressing in place, intact, not taken down. DERM: Wound pictures noted in chart. The patient has bilateral lower extremity excoriation in the thigh. Bilateral foot callus, left toe greater than right toe. Right lower extremity wounds with ulceration noted numerous. No gross purulence noted. Edema present. LUE PICC line clean General: Alert, Oriented X3, Cooperative, No acute distress Heart: Regular rate Lungs: Clear Abdomen: Soft, No tenderness Extremities: No cyanosis, Other (Palpable pulse exam bilaterally with normal dorsalis pedis pulses, normal sounding posterior tibial Doppler signals, palpable femoral and popliteal pulses bilaterally) Skin: Other (Extensive superficial ulcerations bilateral lower extremities with sites of necrotic large ulcerations with 3 mm of depth. The left great toe demonstrates a Montes 1 ulceration with skin breakdown only and foot dorsum bilaterally shows unspecified severity diabetic ulcerations) Labs Labs: Laboratory Tests Test 05/12/21 10:20 05/12/21 11:31 05/12/21 16:49 05/12/21 20:58 White Blood Count 11.4 x10^3/uL (4.0-11.0) Red Blood Count 4.96 x10^6/uL (4.30-5.70) Hemoglobin 13.3 g/dL (13.0-17.5) Hematocrit 42.1 % (39.0-53.0) Mean Corpuscular Volume 85 fL (79-100) Mean Corpuscular Hemoglobin 27 pg (25-35) Mean Corpuscular Hemoglobin Concent 32 g/dL (31-37) Red Cell Distribution Width 15.9 % (11.5-14.5) Platelet Count 379 x10^3/uL (140-400) Neutrophils (%) (Auto) 82 % (31-73) Lymphocytes (%) (Auto) 6 % (24-48) Monocytes (%) (Auto) 8 % (0-9) Eosinophils (%) (Auto) 3 % (0-3) Basophils (%) (Auto) 1 % (0-3) Neutrophils # (Auto) 9.3 x10^3/uL (1.8-7.7) Lymphocytes # (Auto) 0.7 x10^3/uL (1.0-4.8) Monocytes # (Auto) 0.9 x10^3/uL (0.0-1.1) Eosinophils # (Auto) 0.4 x10^3/uL (0.0-0.7) Basophils # (Auto) 0.1 x10^3/uL (0.0-0.2) Sodium Level 140 mmol/L (136-145) Potassium Level 3.6 mmol/L (3.5-5.1) Chloride Level 106 mmol/L (98-107) Carbon Dioxide Level 21 mmol/L (21-32) Anion Gap 13 (6-14) Blood Urea Nitrogen 49 mg/dL (8-26) Creatinine 1.9 mg/dL (0.7-1.3) Estimated GFR (Cockcroft-Gault) 36.3 Glucose Level 130 mg/dL (70-99) Calcium Level 8.6 mg/dL (8.5-10.1) Glucose (Fingerstick) 151 mg/dL (70-99) 134 mg/dL (70-99) 154 mg/dL (70-99) Test 05/13/21 06:15 05/13/21 07:27 White Blood Count 7.2 x10^3/uL (4.0-11.0) Red Blood Count 4.34 x10^6/uL (4.30-5.70) Hemoglobin 11.8 g/dL (13.0-17.5) Hematocrit 36.2 % (39.0-53.0) Mean Corpuscular Volume 83 fL (79-100) Mean Corpuscular Hemoglobin 27 pg (25-35) Mean Corpuscular Hemoglobin Concent 33 g/dL (31-37) Red Cell Distribution Width 16.2 % (11.5-14.5) Platelet Count 276 x10^3/uL (140-400) Neutrophils (%) (Auto) 79 % (31-73) Lymphocytes (%) (Auto) 8 % (24-48) Monocytes (%) (Auto) 8 % (0-9) Eosinophils (%) (Auto) 3 % (0-3) Basophils (%) (Auto) 1 % (0-3) Neutrophils # (Auto) 5.7 x10^3/uL (1.8-7.7) Lymphocytes # (Auto) 0.6 x10^3/uL (1.0-4.8) Monocytes # (Auto) 0.6 x10^3/uL (0.0-1.1) Eosinophils # (Auto) 0.2 x10^3/uL (0.0-0.7) Basophils # (Auto) 0.1 x10^3/uL (0.0-0.2) Sodium Level 140 mmol/L (136-145) Potassium Level 3.9 mmol/L (3.5-5.1) Chloride Level 108 mmol/L (98-107) Carbon Dioxide Level 22 mmol/L (21-32) Anion Gap 10 (6-14) Blood Urea Nitrogen 44 mg/dL (8-26) Creatinine 1.6 mg/dL (0.7-1.3) Estimated GFR (Cockcroft-Gault) 44.3 Glucose Level 123 mg/dL (70-99) Calcium Level 8.2 mg/dL (8.5-10.1) Glucose (Fingerstick) 129 mg/dL (70-99) Assessment and Plan Assessmemt and Plan Recommendations for the bilateral great toe wounds: cleanse wound, apply therahoney gel and aquacel ag secure with gauze, change every 2-3 days. Recommendations for bilateral lower legs: cleanse the wounds then apply therahoney gel to the yellow slough areas then apply Aquacel ag over, cover with briefs, Kerlix and tape, then size G medigrips. change every other day. Patient needs to elevate bilateral lower legs with pillows. Comment Review of Relevant I have reviewed the following items rosa (where applicable) has been applied. Medications: Current Medications Medications (Trade) Dose Ordered Sig/Mata Route PRN Reason Start Time Stop Time Status Last Admin Dose Admin Morphine Sulfate (Morphine Sulfate) 2 mg PRN Q4HRS PRN IVP PAIN 05/12/21 10:00 05/12/21 21:03 Tramadol HCl (Ultram) 50 mg PRN Q6HRS PRN PO MODERATE-SEVERE PAIN 05/12/21 10:00 05/12/21 22:42 Justifications for Admission General Conditions Abnormal capillary refill?: Yes Justification for admission: Patient has tachycardia (> 100 beats per minute) or hypotension (SBP < 90 mm Hg) leading to inadequate systemic perfusion as indicated by new abnormal capillary refill of greater than 3 seconds. Other justification for admit: severe pvd Other Justification LELAND AGEE MD May 13, 2021 07:53
[2021-05-13] MEDS: INSULIN LISPRO 300 UNITS/3 ML VIAL. SQ SCH ×3 (08:00→16:41)
--- NOTE | 2021-05-13 08:09 | PDOC ---
Infectious Disease Note Subjective: Subjective Patient feels better Denies fever, chills, nausea, vomiting, diarrhea, abdominal pain Bilateral lower extremity swelling is improving though slowly Vital Signs: Vital Signs Vital Signs Date Time Temp Pulse Resp B/P (MAP) Pulse Ox O2 Delivery O2 Flow Rate FiO2 05/13/21 02:24 97.7 93 22 139/87 (104) 97 Room Air 97.7 Physical Exam: PHYSICAL EXAM GENERAL: Alert, oriented x 3 male in no acute distress, nontoxic appearing. HEENT: Normocephalic, atraumatic. Anicteric. No thrush. Dentition poor. NECK: Supple, no JVD. LUNGS: Clear. HEART: S1, S2. No murmurs. ABDOMEN: Soft, nontender, nondistended. EXTREMITIES: Bilateral lower extremity dressing in place, intact, not taken down. DERM: Wound pictures noted in chart. The patient has bilateral lower extremity excoriation in the thigh. Bilateral foot callus, left toe greater than right toe. Right lower extremity wounds with ulceration noted numerous. No gross purulence noted. Edema present. LUE PICC line clean Medications: Inpatient Meds: Medications reviewed. Labs: Lab Laboratory Tests Test 05/12/21 10:20 05/12/21 11:31 05/12/21 16:49 05/12/21 20:58 White Blood Count 11.4 x10^3/uL (4.0-11.0) Red Blood Count 4.96 x10^6/uL (4.30-5.70) Hemoglobin 13.3 g/dL (13.0-17.5) Hematocrit 42.1 % (39.0-53.0) Mean Corpuscular Volume 85 fL (79-100) Mean Corpuscular Hemoglobin 27 pg (25-35) Mean Corpuscular Hemoglobin Concent 32 g/dL (31-37) Red Cell Distribution Width 15.9 % (11.5-14.5) Platelet Count 379 x10^3/uL (140-400) Neutrophils (%) (Auto) 82 % (31-73) Lymphocytes (%) (Auto) 6 % (24-48) Monocytes (%) (Auto) 8 % (0-9) Eosinophils (%) (Auto) 3 % (0-3) Basophils (%) (Auto) 1 % (0-3) Neutrophils # (Auto) 9.3 x10^3/uL (1.8-7.7) Lymphocytes # (Auto) 0.7 x10^3/uL (1.0-4.8) Monocytes # (Auto) 0.9 x10^3/uL (0.0-1.1) Eosinophils # (Auto) 0.4 x10^3/uL (0.0-0.7) Basophils # (Auto) 0.1 x10^3/uL (0.0-0.2) Sodium Level 140 mmol/L (136-145) Potassium Level 3.6 mmol/L (3.5-5.1) Chloride Level 106 mmol/L (98-107) Carbon Dioxide Level 21 mmol/L (21-32) Anion Gap 13 (6-14) Blood Urea Nitrogen 49 mg/dL (8-26) Creatinine 1.9 mg/dL (0.7-1.3) Estimated GFR (Cockcroft-Gault) 36.3 Glucose Level 130 mg/dL (70-99) Calcium Level 8.6 mg/dL (8.5-10.1) Glucose (Fingerstick) 151 mg/dL (70-99) 134 mg/dL (70-99) 154 mg/dL (70-99) Test 05/13/21 06:15 05/13/21 07:27 White Blood Count 7.2 x10^3/uL (4.0-11.0) Red Blood Count 4.34 x10^6/uL (4.30-5.70) Hemoglobin 11.8 g/dL (13.0-17.5) Hematocrit 36.2 % (39.0-53.0) Mean Corpuscular Volume 83 fL (79-100) Mean Corpuscular Hemoglobin 27 pg (25-35) Mean Corpuscular Hemoglobin Concent 33 g/dL (31-37) Red Cell Distribution Width 16.2 % (11.5-14.5) Platelet Count 276 x10^3/uL (140-400) Neutrophils (%) (Auto) 79 % (31-73) Lymphocytes (%) (Auto) 8 % (24-48) Monocytes (%) (Auto) 8 % (0-9) Eosinophils (%) (Auto) 3 % (0-3) Basophils (%) (Auto) 1 % (0-3) Neutrophils # (Auto) 5.7 x10^3/uL (1.8-7.7) Lymphocytes # (Auto) 0.6 x10^3/uL (1.0-4.8) Monocytes # (Auto) 0.6 x10^3/uL (0.0-1.1) Eosinophils # (Auto) 0.2 x10^3/uL (0.0-0.7) Basophils # (Auto) 0.1 x10^3/uL (0.0-0.2) Sodium Level 140 mmol/L (136-145) Potassium Level 3.9 mmol/L (3.5-5.1) Chloride Level 108 mmol/L (98-107) Carbon Dioxide Level 22 mmol/L (21-32) Anion Gap 10 (6-14) Blood Urea Nitrogen 44 mg/dL (8-26) Creatinine 1.6 mg/dL (0.7-1.3) Estimated GFR (Cockcroft-Gault) 44.3 Glucose Level 123 mg/dL (70-99) Calcium Level 8.2 mg/dL (8.5-10.1) Glucose (Fingerstick) 129 mg/dL (70-99) Objective: Assessment: 1. Bilateral lower extremity chronic wounds. 2. Mild superimposed cellulitis 3. Peripheral arterial disease. 4. Leukocytosis, was on steroids. 5. Lactic acidosis. 6. Acute kidney injury. 7. Uncontrolled diabetes. 8. History of noncompliance. 9. Eczema. 10. History of colon cancer. Plan: Plan of Care 1. Continue Zosyn, dose micafungin 2. cont daptomycin.CK wnl on 05/09 192 Transition to p.o. antibiotics soon 3. Continue local wound care. 4. Elevate legs. 5. Vascular Surgery consult noted. 6. Offload. 7. Optimal diabetes control. 8. Optimal edema control. 9. Follow up labs and cultures. 10. Continue supportive care. EH BASS MD May 13, 2021 08:09
[2021-05-13] MEDS: MULTIVITAMIN I-VITE TABLET. PO SCH (08:37)
[2021-05-13] MEDS: ASCORBIC ACID 500 MG TABLET PO SCH (08:37)
[2021-05-13] MEDS: LACTOBACILLUS RHAMNOSUS GG 1 CAPSULE. PO SCH ×2 (08:37→20:57)
[2021-05-13] MEDS: ASPIRIN ENTERIC COATED 81 MG TABLET.DR. PO SCH (08:37)
[2021-05-13] MEDS: traMADol 50 MG TABLET PO PRN ×3 (08:38→22:20)
--- NOTE | 2021-05-13 09:36 | PDOC ---
DATE OF SERVICE DATE: 05/13/21 TIME: 09:36 SUBJECTIVE ROS stable, no new concerns or complaints States feeling better OBJECTIVE Vital Signs Vital Signs Date Time Temp Pulse Resp B/P (MAP) Pulse Ox O2 Delivery O2 Flow Rate FiO2 05/13/21 08:38 103 141/92 05/13/21 07:00 97.5 22 96 Room Air 97.5 I & 0 Intake and Output 05/13/21 07:00 Intake Total 1250 ml Balance 1250 ml Intake Oral 100 ml IV Total 1150 ml # Voids 1 # Bowel Movements 1 PHYSICAL EXAM Physical Exam GENERAL: no acute distress HEENT: Normocephalic, atraumatic. Anicteric. OM moist NECK: Supple, LUNGS: Clear, non labored HEART: S1, S2. No murmurs. ABDOMEN: Soft, nontender, nondistended. EXTREMITIES: Bilateral lower extremity dressing in place, DERM: exam per ID - bilateral lower extremity excoriation in the thigh. Bilateral foot callus, left toe greater than right toe. Right lower extremity wounds with ulceration noted numerous. No gross purulence noted. . No nuno, No CVA or SP tenderness NEURO Grossly normal PSYCH Cooperative Vital Signs DIAGNOSIS/ASSESSMENT Assessment & Plan ANDREEA - ATN vs AIN , baseline Unknown , UA unremarkable (except protein/Ketone), No Micr hematuria, No casts; Renal US unremarkable , Renal function improving ,Supportive care, Monitor, I/O, avoid Nephrotoxins , fluid balance Possible CKD- baseline Unknown, obtain records from PCP(Dr. Gabriel) HypoKalemia - resolved replace as indicated BL LE cellulitis Newly diagnosed diabetes, type 2 Hyponatremia, resolved Chest Xray Persistent bilateral basilar linear opacities most likely atelectasis cannot exclude infection. Pulmonary vascular congestion versus crowding. PVD- Vascular surgery consulted HTN BP stable H/o colon cancer in 2012 COMMENT/RELEVANT DATA Meds Current Medications Medications (Trade) Dose Ordered Sig/Mata Start Time Stop Time Status Last Admin Dose Admin Acetaminophen (Tylenol) 650 mg PRN Q4HRS PRN 05/07/21 15:15 05/08/21 15:11 650 MG Al Hydroxide/Mg Hydroxide (Mylanta Plus Xs) 30 ml PRN DAILY PRN 05/07/21 15:15 Albuterol Sulfate (Ventolin Neb Soln) 2.5 mg PRN Q4HRS PRN 05/07/21 15:15 Ascorbic Acid (Vitamin C) 500 mg DAILY 05/08/21 15:00 05/13/21 08:37 500 MG Aspirin (Ecotrin) 81 mg DAILYWBKFT 05/09/21 08:00 05/13/21 08:37 81 MG Carvedilol (Coreg) 6.25 mg BIDWMEALS 05/13/21 09:00 Daptomycin 570 mg/ Sodium Chloride 50 ml @ 100 mls/hr Q24H 05/08/21 11:00 05/12/21 11:12 100 MLS/HR Dextrose (Dextrose 50%-Water Syringe) 12.5 gm PRN Q15MIN PRN 05/07/21 18:00 Diphenhydramine HCl (Benadryl) 25 mg PRN Q6HRS PRN 05/09/21 11:15 05/09/21 21:53 25 MG Docusate Sodium (Colace) 100 mg PRN BID PRN 05/07/21 15:15 Enoxaparin Sodium (Lovenox 40mg Syringe) 40 mg Q24H 05/07/21 21:00 05/12/21 20:59 40 MG Guaifenesin (Robitussin) 200 mg PRN Q4HRS PRN 05/07/21 15:15 Insulin Glargine (Lantus Syringe) 10 unit QHS 05/07/21 21:00 05/12/21 20:59 10 UNIT Insulin Human Lispro (HumaLOG) 0-5 UNITS TIDWMEALS 05/08/21 08:00 Cancel Lactobacillus Rhamnosus (Culturelle) 1 cap BID 05/07/21 21:00 05/13/21 08:37 1 CAP Lidocaine HCl (Xylocaine 2% Topical 30gm Tube) 1 rowdy 1X ONCE 05/09/21 09:30 05/09/21 09:35 DC 05/09/21 14:14 1 ROWDY Micafungin Sodium 100 mg/Dextrose 100 ml @ 100 mls/hr Q24H 05/11/21 10:00 05/12/21 09:58 100 MLS/HR Morphine Sulfate (Morphine Sulfate) 2 mg PRN Q4HRS PRN 05/12/21 10:00 05/12/21 21:03 2 MG Multivitamins/ Minerals (I-Eliazar) 1 tab DAILY 05/08/21 15:00 7/20/21 08:37 1 TAB Nifedipine (Procardia Xl) 30 mg DAILY 05/08/21 09:00 05/13/21 08:38 30 MG Ondansetron HCl (Zofran) 4 mg PRN Q4HRS PRN 05/07/21 15:15 05/11/21 08:29 4 MG Phenol (Chloraseptic) 1 spray PRN Q2HR PRN 05/09/21 19:30 05/09/21 19:38 1 SPRAY Piperacillin Sod/ Tazobactam Sod (Zosyn Per Pharmacy) 1 each PRN DAILY PRN 05/07/21 17:15 Piperacillin Sod/ Tazobactam Sod 3.375 gm/Sodium Chloride 50 ml @ 100 mls/hr Q6HRS 05/07/21 18:00 05/13/21 05:19 100 MLS/HR Potassium Chloride (Klor-Con) 20 meq 1X ONCE 05/11/21 16:30 05/11/21 16:31 DC 05/11/21 16:50 20 MEQ Sodium Chloride 1,000 ml @ 150 mls/hr Q6H40M 05/07/21 17:15 05/13/21 07:54 DC 05/13/21 01:05 150 MLS/HR Sodium Chloride (Normal Saline Flush) 3 ml QSHIFT PRN 05/07/21 15:15 Throat Lozenges (Cepacol Sore Throat Lozenge) 1 asya PRN Q2HRS PRN 05/09/21 19:30 Tramadol HCl (Ultram) 50 mg PRN Q6HRS PRN 05/12/21 10:00 05/13/21 08:38 50 MG Vancomycin HCl (Vanco Per Pharmacy) 1 each PRN DAILY PRN 05/07/21 17:15 05/07/21 17:50 DC Vancomycin HCl 1.75 gm/Sodium Chloride 500 ml @ 250 mls/hr Q12H 05/07/21 20:00 05/07/21 17:48 DC Zolpidem Tartrate (Ambien) 5 mg PRN QHS PRN 05/07/21 17:15 05/12/21 22:42 5 MG Lab Laboratory Tests Test 05/12/21 10:20 05/12/21 11:31 05/12/21 16:49 05/12/21 20:58 White Blood Count 11.4 x10^3/uL (4.0-11.0) Red Blood Count 4.96 x10^6/uL (4.30-5.70) Hemoglobin 13.3 g/dL (13.0-17.5) Hematocrit 42.1 % (39.0-53.0) Mean Corpuscular Volume 85 fL (79-100) Mean Corpuscular Hemoglobin 27 pg (25-35) Mean Corpuscular Hemoglobin Concent 32 g/dL (31-37) Red Cell Distribution Width 15.9 % (11.5-14.5) Platelet Count 379 x10^3/uL (140-400) Neutrophils (%) (Auto) 82 % (31-73) Lymphocytes (%) (Auto) 6 % (24-48) Monocytes (%) (Auto) 8 % (0-9) Eosinophils (%) (Auto) 3 % (0-3) Basophils (%) (Auto) 1 % (0-3) Neutrophils # (Auto) 9.3 x10^3/uL (1.8-7.7) Lymphocytes # (Auto) 0.7 x10^3/uL (1.0-4.8) Monocytes # (Auto) 0.9 x10^3/uL (0.0-1.1) Eosinophils # (Auto) 0.4 x10^3/uL (0.0-0.7) Basophils # (Auto) 0.1 x10^3/uL (0.0-0.2) Sodium Level 140 mmol/L (136-145) Potassium Level 3.6 mmol/L (3.5-5.1) Chloride Level 106 mmol/L (98-107) Carbon Dioxide Level 21 mmol/L (21-32) Anion Gap 13 (6-14) Blood Urea Nitrogen 49 mg/dL (8-26) Creatinine 1.9 mg/dL (0.7-1.3) Estimated GFR (Cockcroft-Gault) 36.3 Glucose Level 130 mg/dL (70-99) Calcium Level 8.6 mg/dL (8.5-10.1) Glucose (Fingerstick) 151 mg/dL (70-99) 134 mg/dL (70-99) 154 mg/dL (70-99) Test 7/20/21 06:15 05/13/21 07:27 White Blood Count 7.2 x10^3/uL (4.0-11.0) Red Blood Count 4.34 x10^6/uL (4.30-5.70) Hemoglobin 11.8 g/dL (13.0-17.5) Hematocrit 36.2 % (39.0-53.0) Mean Corpuscular Volume 83 fL (79-100) Mean Corpuscular Hemoglobin 27 pg (25-35) Mean Corpuscular Hemoglobin Concent 33 g/dL (31-37) Red Cell Distribution Width 16.2 % (11.5-14.5) Platelet Count 276 x10^3/uL (140-400) Neutrophils (%) (Auto) 79 % (31-73) Lymphocytes (%) (Auto) 8 % (24-48) Monocytes (%) (Auto) 8 % (0-9) Eosinophils (%) (Auto) 3 % (0-3) Basophils (%) (Auto) 1 % (0-3) Neutrophils # (Auto) 5.7 x10^3/uL (1.8-7.7) Lymphocytes # (Auto) 0.6 x10^3/uL (1.0-4.8) Monocytes # (Auto) 0.6 x10^3/uL (0.0-1.1) Eosinophils # (Auto) 0.2 x10^3/uL (0.0-0.7) Basophils # (Auto) 0.1 x10^3/uL (0.0-0.2) Sodium Level 140 mmol/L (136-145) Potassium Level 3.9 mmol/L (3.5-5.1) Chloride Level 108 mmol/L (98-107) Carbon Dioxide Level 22 mmol/L (21-32) Anion Gap 10 (6-14) Blood Urea Nitrogen 44 mg/dL (8-26) Creatinine 1.6 mg/dL (0.7-1.3) Estimated GFR (Cockcroft-Gault) 44.3 Glucose Level 123 mg/dL (70-99) Calcium Level 8.2 mg/dL (8.5-10.1) Glucose (Fingerstick) 129 mg/dL (70-99) Results All relevant outside records, renal labs, imaging studies, telemetry/EKG's were reviewed. Justicifation of Admission Dx: Justifications for Admission: Justification of Admission Dx: Yes ELLI SMITH MD May 13, 2021 09:36
[2021-05-13] MEDS: CARVEDILOL 6.25 MG TABLET. PO SCH ×2 (09:50→16:40)
[2021-05-13] MEDS: MICAFUNGIN 100 MG in IV DEXTROSE 5% 100ML 100 ML IV SCH (09:50)
[2021-05-13] MEDS: DAPTOmycin (GENERIC) IVPB 570 MG in IV NORMAL SALINE 50ML 50 ML IV SCH (11:04)
[2021-05-13 11:49] VITALS: BP 165/101
--- NOTE | 2021-05-13 12:10 | NUR ---
SS following up with discharge planning. SS reviewed pt chart and discussed with pt RN. Pt is currently on room air. Pt on IV Micafungin, IV Zosyn, and IV Daptomycin. Pt has EF of 20%. Per ID, will switch to PO antibiotics soon. Wound care following. PT/OT recommended fdc unit. Self pay. Med Assist following. Discharge plan is currently to home when medically ready. SS will continue to follow for discharge planning.
--- NOTE | 2021-05-13 13:07 | NUR ---
ATTEMPTED TO CALL REPORT TO [facility]ER[facility], , BUT NOBODY ANSWERED THE PHONE. TRANSPORTATION IS HERE TO [facility].
[2021-05-13 15:00] VITALS: BP 182/112
[2021-05-13] MEDS: MORPHINE SULFATE 2 MG/ML INJ. IVP PRN (15:07)
--- NOTE | 2021-05-13 18:00 | NUR ---
PT REPORTED THAT APPROXIMATELY 30 MINUTES AFTER TAKING COREG HE DEVELOPS DIZZINESS AND EXTREME THIRST. HE DID THIS WITH MORNING AND EVENING DOSE. WILL NOTIFY CARDIOLOGY.
[2021-05-13 19:47] VITALS: BP 147/90
--- NOTE | 2021-05-13 20:15 | NUR ---
Pt PICC line location documented in Error, PICC line is in Left upper arm.
[2021-05-13] MEDS: ENOXAPARIN 40 MG/0.4 ML SYRINGE. SQ SCH (20:57)
[2021-05-13] MEDS: INSULIN GLARGINE SYRINGE. SQ SCH (21:00)
[2021-05-13] MEDS: ZOLPIDEM 5 MG TABLET. PO PRN (22:20)
[2021-05-13 22:40] VITALS: BP 168/88
[2021-05-14 03:20] VITALS: BP 164/99
[2021-05-14] MEDS: PIPERACILLIN/TAZOBACTAM 3.375 GM in IV NORMAL SALINE 50ML 50 ML IV SCH ×4 (05:18→23:33)
[2021-05-14 05:42] LABS: BASO % 0 % (0-3); EOS # 0.2 x10^3/uL (0.0-0.7); EOS % 3 % (0-3); HEMATOCRIT 30.7 % (39.0-53.0); HEMOGLOBIN 9.9 g/dL (13.0-17.5); LYMPH # 0.5 x10^3/uL (1.0-4.8); LYMPH % 6 % (24-48); MEAN CORPUSCULAR HEMOGLOBIN 27 pg (25-35); MEAN CORPUSCULAR HGB CONC 32 g/dL (31-37); MEAN CORPUSCULAR VOLUME 83 fL (79-100); MONO # 0.4 x10^3/uL (0.0-1.1); MONO % 6 % (0-9); NEUT # 6.6 x10^3/uL (1.8-7.7); NEUT % 85 % (31-73); PLATELET COUNT 281 x10^3/uL (140-400); WHITE BLOOD COUNT 7.7 x10^3/uL (4.0-11.0)
[2021-05-14 05:56] LABS: CREATININE 1.4 mg/dL (0.7-1.3); GFR 51.7; POTASSIUM 3.3 mmol/L (3.5-5.1)
[2021-05-14 07:00] VITALS: BP 165/95
[2021-05-14] MEDS: CARVEDILOL 6.25 MG TABLET. PO SCH (08:00)
[2021-05-14] MEDS: INSULIN LISPRO 300 UNITS/3 ML VIAL. SQ SCH ×3 (08:00→17:00)
[2021-05-14] MEDS: traMADol 50 MG TABLET PO PRN ×3 (08:31→23:50)
[2021-05-14] MEDS: LACTOBACILLUS RHAMNOSUS GG 1 CAPSULE. PO SCH ×2 (08:31→20:43)
[2021-05-14] MEDS: ASPIRIN ENTERIC COATED 81 MG TABLET.DR. PO SCH (08:31)
[2021-05-14] MEDS: ASCORBIC ACID 500 MG TABLET PO SCH (08:31)
[2021-05-14] MEDS: MULTIVITAMIN I-VITE TABLET. PO SCH (08:31)
--- NOTE | 2021-05-14 08:51 | PDOC ---
Infectious Disease Note Subjective: Subjective Patient feels better still has loose bm but improving Bilateral lower extremity pain and swelling is improving though slowly Vital Signs: Vital Signs Vital Signs Date Time Temp Pulse Resp B/P (MAP) Pulse Ox O2 Delivery O2 Flow Rate FiO2 05/14/21 08:31 Room Air 05/14/21 08:31 109 165/95 05/14/21 07:00 97.7 17 96 97.7 Physical Exam: PHYSICAL EXAM GENERAL: Alert, oriented x 3 male in no acute distress, nontoxic appearing. HEENT: Normocephalic, atraumatic. Anicteric. No thrush. Dentition poor. NECK: Supple, no JVD. LUNGS: Clear. HEART: S1, S2. No murmurs. ABDOMEN: Soft, nontender, nondistended. EXTREMITIES: Bilateral lower extremity dressing in place, intact, not taken down. DERM: Wound pictures noted in chart. The patient has bilateral lower extremity excoriation in the thigh. Bilateral foot callus, left toe greater than right toe. Right lower extremity wounds with ulceration noted numerous. No gross purulence noted. Edema present. LUE PICC line clean Medications: Inpatient Meds: Medications reviewed. Labs: Lab Laboratory Tests Test 05/13/21 11:12 05/13/21 16:31 05/13/21 20:59 05/14/21 05:25 Glucose (Fingerstick) 181 mg/dL (70-99) 120 mg/dL (70-99) 109 mg/dL (70-99) White Blood Count 7.7 x10^3/uL (4.0-11.0) Red Blood Count 3.70 x10^6/uL (4.30-5.70) Hemoglobin 9.9 g/dL (13.0-17.5) Hematocrit 30.7 % (39.0-53.0) Mean Corpuscular Volume 83 fL (79-100) Mean Corpuscular Hemoglobin 27 pg (25-35) Mean Corpuscular Hemoglobin Concent 32 g/dL (31-37) Red Cell Distribution Width 16.0 % (11.5-14.5) Platelet Count 281 x10^3/uL (140-400) Neutrophils (%) (Auto) 85 % (31-73) Lymphocytes (%) (Auto) 6 % (24-48) Monocytes (%) (Auto) 6 % (0-9) Eosinophils (%) (Auto) 3 % (0-3) Basophils (%) (Auto) 0 % (0-3) Neutrophils # (Auto) 6.6 x10^3/uL (1.8-7.7) Lymphocytes # (Auto) 0.5 x10^3/uL (1.0-4.8) Monocytes # (Auto) 0.4 x10^3/uL (0.0-1.1) Eosinophils # (Auto) 0.2 x10^3/uL (0.0-0.7) Basophils # (Auto) 0.0 x10^3/uL (0.0-0.2) Sodium Level 140 mmol/L (136-145) Potassium Level 3.3 mmol/L (3.5-5.1) Chloride Level 110 mmol/L (98-107) Carbon Dioxide Level 20 mmol/L (21-32) Anion Gap 10 (6-14) Blood Urea Nitrogen 45 mg/dL (8-26) Creatinine 1.4 mg/dL (0.7-1.3) Estimated GFR (Cockcroft-Gault) 51.7 Glucose Level 113 mg/dL (70-99) Calcium Level 8.0 mg/dL (8.5-10.1) Test 05/14/21 07:31 Glucose (Fingerstick) 113 mg/dL (70-99) Objective: Assessment: 1. Bilateral lower extremity chronic wounds. 2. Mild superimposed cellulitis 3. Peripheral arterial disease. 4. Leukocytosis, was on steroids. 5. Lactic acidosis. 6. Acute kidney injury. 7. Uncontrolled diabetes. 8. History of noncompliance. 9. Eczema. 10. History of colon cancer. Plan: Plan of Care 1. Continue Zosyn, dose micafungin 2. cont daptomycin.CK wnl on 05/09 192 Transition to p.o.augmentin and doxy on discharge 3. Continue local wound care. 4. Elevate legs. 5. Vascular Surgery consult noted. 6. Offload. 7. Optimal edema control. D/W EH Ramirez MD May 14, 2021 08:51
[2021-05-14] MEDS: MICAFUNGIN 100 MG in IV DEXTROSE 5% 100ML 100 ML IV SCH (09:36)
--- NOTE | 2021-05-14 09:52 | PDOC ---
DATE OF SERVICE DATE: 05/14/21 TIME: 09:52 SUBJECTIVE ROS stable, no new concerns or complaints States feeling good OBJECTIVE Vital Signs Vital Signs Date Time Temp Pulse Resp B/P (MAP) Pulse Ox O2 Delivery O2 Flow Rate FiO2 05/14/21 08:31 Room Air 05/14/21 08:31 109 165/95 05/14/21 07:00 97.7 17 96 97.7 I & 0 Intake and Output 05/14/21 07:00 Intake Total 2525 ml Balance 2525 ml Intake Oral 1100 ml IV Total 1425 ml # Voids 4 # Bowel Movements 1 PHYSICAL EXAM Physical Exam GENERAL: no acute distress HEENT: Normocephalic, atraumatic. Anicteric. OM moist NECK: Supple, LUNGS: Clear, non labored HEART: S1, S2. No murmurs. ABDOMEN: Soft, nontender, nondistended. EXTREMITIES: Bilateral lower extremity dressing in place, DERM: exam per ID - bilateral lower extremity excoriation in the thigh. Bilateral foot callus, left toe greater than right toe. Right lower extremity wounds with ulceration noted numerous. No gross purulence noted. . No nuno, No CVA or SP tenderness NEURO Grossly normal PSYCH Cooperative Vital Signs DIAGNOSIS/ASSESSMENT Assessment & Plan ANDREEA - ATN vs AIN , baseline Unknown , UA unremarkable for No Micr hematuria, No casts; Renal US unremarkable , Renal function improving ,Supportive care, Monitor, I/O, avoid Nephrotoxins , fluid balance Possible CKD- baseline Unknown, obtain records from PCP(Dr. Gabriel) HypoKalemia - resolved replace as indicated BL LE cellulitis Newly diagnosed diabetes, type 2 Hyponatremia, resolved Chest Xray Persistent bilateral basilar linear opacities most likely atelectasis cannot exclude infection. Pulmonary vascular congestion versus crowding. PVD- Vascular surgery consulted HTN BP not controlled , high. Consider NORBERTO-I/ARB or Aldactone once baseline renal function established . Will need close monitoring H/o colon cancer in 2011 COMMENT/RELEVANT DATA Meds Current Medications Medications (Trade) Dose Ordered Sig/Mata Start Time Stop Time Status Last Admin Dose Admin Acetaminophen (Tylenol) 650 mg PRN Q4HRS PRN 05/07/21 15:15 05/08/21 15:11 650 MG Al Hydroxide/Mg Hydroxide (Mylanta Plus Xs) 30 ml PRN DAILY PRN 05/07/21 15:15 Albuterol Sulfate (Ventolin Neb Soln) 2.5 mg PRN Q4HRS PRN 05/07/21 15:15 Ascorbic Acid (Vitamin C) 500 mg DAILY 05/08/21 15:00 05/14/21 08:31 500 MG Aspirin (Ecotrin) 81 mg DAILYWBKFT 05/09/21 08:00 05/14/21 08:31 81 MG Carvedilol (Coreg) 6.25 mg BIDWMEALS 05/13/21 09:00 05/13/21 16:40 6.25 MG Daptomycin 570 mg/ Sodium Chloride 50 ml @ 100 mls/hr Q24H 05/08/21 11:00 05/13/21 11:04 100 MLS/HR Dextrose (Dextrose 50%-Water Syringe) 12.5 gm PRN Q15MIN PRN 05/07/21 18:00 Diphenhydramine HCl (Benadryl) 25 mg PRN Q6HRS PRN 05/09/21 11:15 05/09/21 21:53 25 MG Docusate Sodium (Colace) 100 mg PRN BID PRN 05/07/21 15:15 Enoxaparin Sodium (Lovenox 40mg Syringe) 40 mg Q24H 05/07/21 21:00 05/13/21 20:57 40 MG Guaifenesin (Robitussin) 200 mg PRN Q4HRS PRN 05/07/21 15:15 Insulin Glargine (Lantus Syringe) 10 unit QHS 05/07/21 21:00 05/13/21 21:00 5 UNIT Insulin Human Lispro (HumaLOG) 0-5 UNITS TIDWMEALS 05/08/21 08:00 Cancel Lactobacillus Rhamnosus (Culturelle) 1 cap BID 05/07/21 21:00 05/14/21 08:31 1 CAP Lidocaine HCl (Xylocaine 2% Topical 30gm Tube) 1 rowdy 1X ONCE 05/09/21 09:30 05/09/21 09:35 DC 05/09/21 14:14 1 ROWDY Micafungin Sodium 100 mg/Dextrose 100 ml @ 100 mls/hr Q24H 05/11/21 10:00 05/14/21 09:36 100 MLS/HR Morphine Sulfate (Morphine Sulfate) 2 mg PRN Q4HRS PRN 05/12/21 10:00 05/13/21 15:07 2 MG Multivitamins/ Minerals (I-Eliazar) 1 tab DAILY 05/08/21 15:00 05/14/21 08:31 1 TAB Nifedipine (Procardia Xl) 30 mg DAILY 05/08/21 09:00 05/14/21 08:31 30 MG Ondansetron HCl (Zofran) 4 mg PRN Q4HRS PRN 05/07/21 15:15 05/11/21 08:29 4 MG Phenol (Chloraseptic) 1 spray PRN Q2HR PRN 05/09/21 19:30 05/09/21 19:38 1 SPRAY Piperacillin Sod/ Tazobactam Sod (Zosyn Per Pharmacy) 1 each PRN DAILY PRN 05/07/21 17:15 Piperacillin Sod/ Tazobactam Sod 3.375 gm/Sodium Chloride 50 ml @ 100 mls/hr Q6HRS 05/07/21 18:00 05/14/21 05:18 100 MLS/HR Potassium Chloride (Klor-Con) 20 meq 1X ONCE 05/11/21 16:30 05/11/21 16:31 DC 05/11/21 16:50 20 MEQ Sodium Chloride 1,000 ml @ 150 mls/hr Q6H40M 05/07/21 17:15 05/13/21 07:54 DC 05/13/21 01:05 150 MLS/HR Sodium Chloride (Normal Saline Flush) 3 ml QSHIFT PRN 05/07/21 15:15 Throat Lozenges (Cepacol Sore Throat Lozenge) 1 asya PRN Q2HRS PRN 05/09/21 19:30 Tramadol HCl (Ultram) 50 mg PRN Q6HRS PRN 05/12/21 10:00 05/14/21 08:31 50 MG Vancomycin HCl (Vanco Per Pharmacy) 1 each PRN DAILY PRN 05/07/21 17:15 05/07/21 17:50 DC Vancomycin HCl 1.75 gm/Sodium Chloride 500 ml @ 250 mls/hr Q12H 05/07/21 20:00 05/07/21 17:48 DC Zolpidem Tartrate (Ambien) 5 mg PRN QHS PRN 05/07/21 17:15 05/13/21 22:20 5 MG Lab Laboratory Tests Test 05/13/21 11:12 05/13/21 16:31 05/13/21 20:59 05/14/21 05:25 Glucose (Fingerstick) 181 mg/dL (70-99) 120 mg/dL (70-99) 109 mg/dL (70-99) White Blood Count 7.7 x10^3/uL (4.0-11.0) Red Blood Count 3.70 x10^6/uL (4.30-5.70) Hemoglobin 9.9 g/dL (13.0-17.5) Hematocrit 30.7 % (39.0-53.0) Mean Corpuscular Volume 83 fL (79-100) Mean Corpuscular Hemoglobin 27 pg (25-35) Mean Corpuscular Hemoglobin Concent 32 g/dL (31-37) Red Cell Distribution Width 16.0 % (11.5-14.5) Platelet Count 281 x10^3/uL (140-400) Neutrophils (%) (Auto) 85 % (31-73) Lymphocytes (%) (Auto) 6 % (24-48) Monocytes (%) (Auto) 6 % (0-9) Eosinophils (%) (Auto) 3 % (0-3) Basophils (%) (Auto) 0 % (0-3) Neutrophils # (Auto) 6.6 x10^3/uL (1.8-7.7) Lymphocytes # (Auto) 0.5 x10^3/uL (1.0-4.8) Monocytes # (Auto) 0.4 x10^3/uL (0.0-1.1) Eosinophils # (Auto) 0.2 x10^3/uL (0.0-0.7) Basophils # (Auto) 0.0 x10^3/uL (0.0-0.2) Sodium Level 140 mmol/L (136-145) Potassium Level 3.3 mmol/L (3.5-5.1) Chloride Level 110 mmol/L (98-107) Carbon Dioxide Level 20 mmol/L (21-32) Anion Gap 10 (6-14) Blood Urea Nitrogen 45 mg/dL (8-26) Creatinine 1.4 mg/dL (0.7-1.3) Estimated GFR (Cockcroft-Gault) 51.7 Glucose Level 113 mg/dL (70-99) Calcium Level 8.0 mg/dL (8.5-10.1) Test 05/14/21 07:31 Glucose (Fingerstick) 113 mg/dL (70-99) Results All relevant outside records, renal labs, imaging studies, telemetry/EKG's were reviewed. Justicifation of Admission Dx: Justifications for Admission: Justification of Admission Dx: Yes ELLI SMITH MD May 14, 2021 09:52
--- NOTE | 2021-05-14 10:07 | PDOC ---
[employer] PROGRESS NOTE Date of Service DOS: DATE: 05/14/21 TIME: 10:06 Chief Complaint Chief Complaint A/P: Bilateral lower extremity cellulitis - ID consulted, on vancomycin, micafungin Elevated troponin I (0.265) Newly diagnosed diabetes, type 2 - A1C 11.8 ANDREEA - on CKD, vasmotor nephropathy Hyponatremia, resolved PVD Left great toe diabetic ulcer H/o colon cancer in 2011 Lactic acidosis - due to cellulitis, improved Chronic systolic CHF - 2D echo showed EF 20-25%. CXR does not show any overt fluid overload. Ischemic evaluation once cellulitis resolves, possibly as outpatient Hypertensive urgency - now controlled. PAD - arterial duplex with occlusion of left peroneal artery. No major vascular stenosis above the knee - manage conservatively per vascular team FEN - ADA cardiac diet PPX - heparin FULL CODE Dispo - inpatient History of Present Illness History of Present Illness Mr Coffey is a 60-year-old man is medical history hypertension and newly diagnosed diabetes who is transferred from [facility], with bilateral lower ext cellulitis, suspected PVD , near occlusion of left peroneal artery by doppler 05/07/21. Cr 1.5 na = 131, bun 35, glucose 506, troponin i 0.105, BGB 14.6 LA 2.4 K=4.8 CRP 293 PLTS 297 ESR =34 Transferred for vascular surgery consult, ID consult, cardiology consult and wound care consults. Was treated with iv vancomycin, heparin drip prior to transfer here 05/08: Afebrile. Clean dry intact dressing on bilateral LE. Run of PVCs on nuclear monitoring technician during exam 05/09: Afebrile. Clean dry intact dressing on bilateral LE 05/10: Afebrile. Clean dry intact dressing on bilateral LE. Continue IV ZOSYN and cont IV daptomycin. ECHO left ventricular systolic function is severely diminished EF 20-25%. 05/11: Patient seen and examined. Sitting up in bed, alert, NAD. Afebrile. Clean dry intact dressing on BL LE 05/12: Afebrile. Pain is not well controlled. Leg swelling slow to improve. Cr down to 1.9. Still on zosyn and micfungin IV. Wound care applied [place] 05/13: Afebrile overnight. Cr to 1.6. BP and heart rate up. Discussed with infectious disease at least another day of IV antibiotics and antifungals. Will initiate carvedilol today. Afebrile. [place] "funny". Dry mouth some dizziness with carvedilol dosing. Discussed will cut in half. He may need Toprol-XL instead. Otherwise legs are improved we will give him p.o. antibiotics today. Need to discuss with cardiology follow-up echocardiogram in next 3 months. Vitals/I&O Vitals/I&O: Vital Signs Date Time Temp Pulse Resp B/P (MAP) Pulse Ox O2 Delivery O2 Flow Rate FiO2 05/14/21 08:31 Room Air 05/14/21 08:31 109 165/95 05/14/21 07:00 97.7 17 96 97.7 I & O 05/13/21 05/13/21 05/14/21 14:59 22:59 06:59 Intake Total 2125 ml 50 ml 350 ml Balance 2125 ml 50 ml 350 ml Physical Exam Physical Exam: GENERAL: Alert, oriented x 3 male in no acute distress, nontoxic appearing. HEENT: Normocephalic, atraumatic. Anicteric. No thrush. Dentition poor. NECK: Supple, no JVD. LUNGS: Clear. HEART: S1, S2. No murmurs. ABDOMEN: Soft, nontender, nondistended. EXTREMITIES: Bilateral lower extremity dressing in place, intact, not taken down. DERM: Wound pictures noted in chart. The patient has bilateral lower extremity excoriation in the thigh. Bilateral foot callus, left toe greater than right toe. Right lower extremity wounds with ulceration noted numerous. No gross purulence noted. Edema present. LUE PICC line clean General: Alert, Oriented X3, Cooperative, No acute distress Heart: Regular rate Lungs: Clear Abdomen: Soft, No tenderness Extremities: No cyanosis, Other (Palpable pulse exam bilaterally with normal dorsalis pedis pulses, normal sounding posterior tibial Doppler signals, palpable femoral and popliteal pulses bilaterally) Skin: Other (Extensive superficial ulcerations bilateral lower extremities with sites of necrotic large ulcerations with 3 mm of depth. The left great toe demonstrates a Montes 1 ulceration with skin breakdown only and foot dorsum bilaterally shows unspecified severity diabetic ulcerations) Labs Labs: Laboratory Tests Test 05/13/21 11:12 05/13/21 16:31 05/13/21 20:59 05/14/21 05:25 Glucose (Fingerstick) 181 mg/dL (70-99) 120 mg/dL (70-99) 109 mg/dL (70-99) White Blood Count 7.7 x10^3/uL (4.0-11.0) Red Blood Count 3.70 x10^6/uL (4.30-5.70) Hemoglobin 9.9 g/dL (13.0-17.5) Hematocrit 30.7 % (39.0-53.0) Mean Corpuscular Volume 83 fL (79-100) Mean Corpuscular Hemoglobin 27 pg (25-35) Mean Corpuscular Hemoglobin Concent 32 g/dL (31-37) Red Cell Distribution Width 16.0 % (11.5-14.5) Platelet Count 281 x10^3/uL (140-400) Neutrophils (%) (Auto) 85 % (31-73) Lymphocytes (%) (Auto) 6 % (24-48) Monocytes (%) (Auto) 6 % (0-9) Eosinophils (%) (Auto) 3 % (0-3) Basophils (%) (Auto) 0 % (0-3) Neutrophils # (Auto) 6.6 x10^3/uL (1.8-7.7) Lymphocytes # (Auto) 0.5 x10^3/uL (1.0-4.8) Monocytes # (Auto) 0.4 x10^3/uL (0.0-1.1) Eosinophils # (Auto) 0.2 x10^3/uL (0.0-0.7) Basophils # (Auto) 0.0 x10^3/uL (0.0-0.2) Sodium Level 140 mmol/L (136-145) Potassium Level 3.3 mmol/L (3.5-5.1) Chloride Level 110 mmol/L (98-107) Carbon Dioxide Level 20 mmol/L (21-32) Anion Gap 10 (6-14) Blood Urea Nitrogen 45 mg/dL (8-26) Creatinine 1.4 mg/dL (0.7-1.3) Estimated GFR (Cockcroft-Gault) 51.7 Glucose Level 113 mg/dL (70-99) Calcium Level 8.0 mg/dL (8.5-10.1) Test 05/14/21 07:31 Glucose (Fingerstick) 113 mg/dL (70-99) Comment Review of Relevant I have reviewed the following items rosa (where applicable) has been applied. Justifications for Admission General Conditions Abnormal capillary refill?: Yes Justification for admission: Patient has tachycardia (> 100 beats per minute) or hypotension (SBP < 90 mm Hg) leading to inadequate systemic perfusion as indicated by new abnormal capillary refill of greater than 3 seconds. Other justification for admit: severe pvd Other Justification LELAND AGEE MD May 14, 2021 10:07
[2021-05-14 11:01] VITALS: BP 184/107
[2021-05-14] MEDS: DAPTOmycin (GENERIC) IVPB 570 MG in IV NORMAL SALINE 50ML 50 ML IV SCH (11:05)
--- NOTE | 2021-05-14 11:23 | NUR ---
SS following up with discharge planning. SS reviewed pt chart and discussed with pt RN. Pt is currently on room air. Pt antibiotics being switched to PO. Wound care following. New EF of 20%. PT/OT recommended halfway unit. Self pay. Discharge plan is to home. Per [employer] applications for SSI/Disability and Medicaid have been submitted. Pt may have spend down. Discharge order on the chart. [facility], ; fax [phone] agreeable to follow for [facility] for RN and wound care for teaching. Physician notified. SS will continue to follow for discharge planning.
--- NOTE | 2021-05-14 13:29 | PDOC ---
ALICE LINDSAY UI DEVELOPER WITH ANGULAR JS 05/14/21 1329: CARDIO Progress Notes Date and Time Date of Service 05/14/21 Time of Evaluation 1300 Subjective Subjective: No Chest Pain, No shortness of breath, No Palpitations Vitals Vitals Vital Signs Date Time Temp Pulse Resp B/P (MAP) Pulse Ox O2 Delivery O2 Flow Rate FiO2 05/14/21 11:01 98.3 97 184/107 (132) 94 Room Air 98.3 05/14/21 07:00 17 Weight Weight [ ] Input and Output Intake and Output Intake and Output 05/14/21 07:00 Intake Total 2525 ml Balance 2525 ml Intake Oral 1100 ml IV Total 1425 ml # Voids 4 # Bowel Movements 1 Laboratory Labs Laboratory Tests Test 05/13/21 16:31 05/13/21 20:59 05/14/21 05:25 05/14/21 07:31 Glucose (Fingerstick) 120 mg/dL (70-99) 109 mg/dL (70-99) 113 mg/dL (70-99) White Blood Count 7.7 x10^3/uL (4.0-11.0) Red Blood Count 3.70 x10^6/uL (4.30-5.70) Hemoglobin 9.9 g/dL (13.0-17.5) Hematocrit 30.7 % (39.0-53.0) Mean Corpuscular Volume 83 fL (79-100) Mean Corpuscular Hemoglobin 27 pg (25-35) Mean Corpuscular Hemoglobin Concent 32 g/dL (31-37) Red Cell Distribution Width 16.0 % (11.5-14.5) Platelet Count 281 x10^3/uL (140-400) Neutrophils (%) (Auto) 85 % (31-73) Lymphocytes (%) (Auto) 6 % (24-48) Monocytes (%) (Auto) 6 % (0-9) Eosinophils (%) (Auto) 3 % (0-3) Basophils (%) (Auto) 0 % (0-3) Neutrophils # (Auto) 6.6 x10^3/uL (1.8-7.7) Lymphocytes # (Auto) 0.5 x10^3/uL (1.0-4.8) Monocytes # (Auto) 0.4 x10^3/uL (0.0-1.1) Eosinophils # (Auto) 0.2 x10^3/uL (0.0-0.7) Basophils # (Auto) 0.0 x10^3/uL (0.0-0.2) Sodium Level 140 mmol/L (136-145) Potassium Level 3.3 mmol/L (3.5-5.1) Chloride Level 110 mmol/L (98-107) Carbon Dioxide Level 20 mmol/L (21-32) Anion Gap 10 (6-14) Blood Urea Nitrogen 45 mg/dL (8-26) Creatinine 1.4 mg/dL (0.7-1.3) Estimated GFR (Cockcroft-Gault) 51.7 Glucose Level 113 mg/dL (70-99) Calcium Level 8.0 mg/dL (8.5-10.1) Test 05/14/21 11:31 Glucose (Fingerstick) 159 mg/dL (70-99) Microbiology Micro Microbiology 05/07/21 Blood Culture - Final, Complete NO GROWTH AFTER 5 DAYS Physical Exam HEENT: Neck Supple W Full Motion Chest: Symmetric LUNGS: Clear to Auscultation, Other (diminished bases) Heart: RRR (ST) Abdomen: Soft N/T Extremities: Other (bilateral LE cellulitis, drsgs intact ) Neurology: alert, oriented, follow commands Assessment Assessment 1. LE cellulitis: Continue IV antibiotics. ID following 2. ANDREEA on CKD; improved . 3. Uncontrolled diabetes, II; as per IM 4. Mild troponin elevation; highest 0.28. Most probably type II, demand ischemia in setting of above. CP free. 2D echo showed EF 20-25%. compensated overall 5. Arrhythmia; appears to have bursts of PAFIB on tele 6. Hypertensive urgency; remains labile 7. PAD; arterial duplex with occlusion of left peroneal artery. No major vascular stenosis above the knee 8. Hypokalemia, hypomagnesemia Recommendations D/w Dr. Bergman; will discontinue coreg, nifedipine Add Toprol for rate control, HF optimization Start hydralazine, imdur Add ACEi when okay from a renal standpoint Continue ASA therapy Discussed need for further ischemic evaluation with stress test versus cardiac cath, given new finding of CMP SS following; applying for disability Justicifation of Admission Dx: Justifications for Admission: Justification of Admission Dx: Yes HERNAN HEALY MD 05/14/21 2001: CARDIO Progress Notes Plan Plan Patient seen and examined. Agree with above nurse practitioner note. At this present time the patient does not have any significant cardiovascular symptoms. Unless necessary for the nephrology service we will defer a catheterization at this time. Consider outpatient right and left heart catheterization when he is more optimized. Supportive care for now. ALICE LINDSAY APRN May 14, 2021 13:29 HERNAN HEALY MD May 14, 2021 20:01
[2021-05-14] MEDS: METOPROLOL SUCC 24HR ER 50 MG TAB.ER.24H. PO SCH (13:52)
[2021-05-14 14:45] VITALS: BP 155/96
[2021-05-14] MEDS: MORPHINE SULFATE 2 MG/ML INJ. IVP PRN ×2 (15:16→18:24)
[2021-05-14] MEDS ORDERED: CARVEDILOL 3.125 MG TABLET. PO SCH (17:00)
[2021-05-14 19:00] VITALS: BP 178/114
[2021-05-14] MEDS: ENOXAPARIN 40 MG/0.4 ML SYRINGE. SQ SCH (20:43)
[2021-05-14] MEDS: INSULIN GLARGINE SYRINGE. SQ SCH (20:44)
[2021-05-14 22:35] VITALS: BP 183/104
[2021-05-14] MEDS: ZOLPIDEM 5 MG TABLET. PO PRN (23:50)
[2021-05-15 02:28] VITALS: BP 155/90
[2021-05-15] MEDS: PIPERACILLIN/TAZOBACTAM 3.375 GM in IV NORMAL SALINE 50ML 50 ML IV SCH (05:35)
[2021-05-15] MEDS: traMADol 50 MG TABLET PO PRN ×3 (05:42→20:42)
[2021-05-15 06:16] VITALS: BP 161/99
[2021-05-15 06:45] LABS: BASO # 0.1 x10^3/uL (0.0-0.2); BASO % 1 % (0-3); EOS # 0.2 x10^3/uL (0.0-0.7); EOS % 2 % (0-3); HEMATOCRIT 30.4 % (39.0-53.0); LYMPH # 0.5 x10^3/uL (1.0-4.8); LYMPH % 7 % (24-48); MEAN CORPUSCULAR HEMOGLOBIN 27 pg (25-35); MEAN CORPUSCULAR HGB CONC 33 g/dL (31-37); MEAN CORPUSCULAR VOLUME 82 fL (79-100); MONO # 0.5 x10^3/uL (0.0-1.1); MONO % 6 % (0-9); NEUT # 6.5 x10^3/uL (1.8-7.7); NEUT % 84 % (31-73); PLATELET COUNT 290 x10^3/uL (140-400); RED BLOOD COUNT 3.69 x10^6/uL (4.30-5.70); RED CELL DISTRIBUTION WIDTH 15.9 % (11.5-14.5); WHITE BLOOD COUNT 7.7 x10^3/uL (4.0-11.0)
[2021-05-15 06:47] LABS: CREATININE 1.3 mg/dL (0.7-1.3); GFR 56.3; POTASSIUM 3.1 mmol/L (3.5-5.1)
[2021-05-15] MEDS: INSULIN LISPRO 300 UNITS/3 ML VIAL. SQ SCH ×3 (08:00→17:00)
[2021-05-15] MEDS: ISOSORBIDE MONONITRATE ER 30 MG TAB.ER.24H PO SCH (08:38)
[2021-05-15] MEDS: ASPIRIN ENTERIC COATED 81 MG TABLET.DR. PO SCH (08:38)
[2021-05-15] MEDS: ASCORBIC ACID 500 MG TABLET PO SCH (08:38)
[2021-05-15] MEDS: METOPROLOL SUCC 24HR ER 50 MG TAB.ER.24H. PO SCH (08:39)
[2021-05-15] MEDS: MICAFUNGIN 100 MG in IV DEXTROSE 5% 100ML 100 ML IV SCH (08:39)
[2021-05-15] MEDS: MULTIVITAMIN I-VITE TABLET. PO SCH (08:39)
[2021-05-15] MEDS: LACTOBACILLUS RHAMNOSUS GG 1 CAPSULE. PO SCH ×2 (08:39→20:41)
--- NOTE | 2021-05-15 08:50 | PDOC ---
Infectious Disease Note Subjective: Subjective Patient feels better Patient is ready for discharge per discussion with team Vital Signs: Vital Signs Vital Signs Date Time Temp Pulse Resp B/P (MAP) Pulse Ox O2 Delivery O2 Flow Rate FiO2 05/15/21 08:39 80 05/15/21 06:16 98.5 18 161/99 (119) 97 Room Air 98.5 Physical Exam: PHYSICAL EXAM GENERAL: Alert, oriented x 3 male in no acute distress, nontoxic appearing. HEENT: Normocephalic, atraumatic. Anicteric. No thrush. Dentition poor. NECK: Supple, no JVD. LUNGS: Clear. HEART: S1, S2. No murmurs. ABDOMEN: Soft, nontender, nondistended. EXTREMITIES: Bilateral lower extremity dressing in place, intact, not taken down. DERM: Wound pictures noted in chart. The patient has bilateral lower extremity excoriation in the thigh. Bilateral foot callus, left toe greater than right toe. Right lower extremity wounds with ulceration noted numerous. No gross purulence noted. Edema present. LUE PICC line clean Medications: Inpatient Meds: Medications reviewed. Labs: Lab Laboratory Tests Test 05/14/21 11:31 05/14/21 16:56 05/14/21 20:09 05/15/21 06:25 Glucose (Fingerstick) 159 mg/dL (70-99) 144 mg/dL (70-99) 187 mg/dL (70-99) White Blood Count 7.7 x10^3/uL (4.0-11.0) Red Blood Count 3.69 x10^6/uL (4.30-5.70) Hemoglobin 10.0 g/dL (13.0-17.5) Hematocrit 30.4 % (39.0-53.0) Mean Corpuscular Volume 82 fL (79-100) Mean Corpuscular Hemoglobin 27 pg (25-35) Mean Corpuscular Hemoglobin Concent 33 g/dL (31-37) Red Cell Distribution Width 15.9 % (11.5-14.5) Platelet Count 290 x10^3/uL (140-400) Neutrophils (%) (Auto) 84 % (31-73) Lymphocytes (%) (Auto) 7 % (24-48) Monocytes (%) (Auto) 6 % (0-9) Eosinophils (%) (Auto) 2 % (0-3) Basophils (%) (Auto) 1 % (0-3) Neutrophils # (Auto) 6.5 x10^3/uL (1.8-7.7) Lymphocytes # (Auto) 0.5 x10^3/uL (1.0-4.8) Monocytes # (Auto) 0.5 x10^3/uL (0.0-1.1) Eosinophils # (Auto) 0.2 x10^3/uL (0.0-0.7) Basophils # (Auto) 0.1 x10^3/uL (0.0-0.2) Sodium Level 141 mmol/L (136-145) Potassium Level 3.1 mmol/L (3.5-5.1) Chloride Level 109 mmol/L (98-107) Carbon Dioxide Level 22 mmol/L (21-32) Anion Gap 10 (6-14) Blood Urea Nitrogen 42 mg/dL (8-26) Creatinine 1.3 mg/dL (0.7-1.3) Estimated GFR (Cockcroft-Gault) 56.3 Glucose Level 147 mg/dL (70-99) Calcium Level 8.0 mg/dL (8.5-10.1) Test 05/15/21 08:37 Glucose (Fingerstick) 146 mg/dL (70-99) Objective: Assessment: 1. Bilateral lower extremity chronic wounds. 2. Mild superimposed cellulitis 3. Peripheral arterial disease. 4. Leukocytosis, was on steroids. 5. Lactic acidosis. 6. Acute kidney injury. 7. Uncontrolled diabetes. 8. History of noncompliance. 9. Eczema. 10. History of colon cancer. Plan: Plan of Care Transition to p.o.augmentin and doxy for discharge Continue local wound care per wound team. Discussed with nursing staff EH BASS MD May 15, 2021 08:50
--- NOTE | 2021-05-15 08:58 | PDOC ---
[employer] PROGRESS NOTE Date of Service DOS: DATE: 05/15/21 TIME: 08:57 Chief Complaint Chief Complaint A/P: Bilateral lower extremity cellulitis - ID consulted, on vancomycin, micafungin Elevated troponin I (0.265) Newly diagnosed diabetes, type 2 - A1C 11.8 ANDREEA - on CKD, vasmotor nephropathy Hyponatremia, resolved PVD Left great toe diabetic ulcer H/o colon cancer in 2011 Lactic acidosis - due to cellulitis, improved Chronic systolic CHF - 2D echo showed EF 20-25%. CXR does not show any overt fluid overload. Ischemic evaluation once cellulitis resolves, possibly as outpatient Hypertensive urgency - now controlled. PAD - arterial duplex with occlusion of left peroneal artery. No major vascular stenosis above the knee - manage conservatively per vascular team FEN - ADA cardiac diet PPX - heparin FULL CODE Dispo - inpatient History of Present Illness History of Present Illness Mr Coffey is a 60-year-old man is medical history hypertension and newly diagnosed diabetes who is transferred from [facility], with bilateral lower ext cellulitis, suspected PVD , near occlusion of left peroneal artery by doppler 05/07/21. Cr 1.5 na = 131, bun 35, glucose 506, troponin i 0.105, BGB 14.6 LA 2.4 K=4.8 CRP 293 PLTS 297 ESR =34 Transferred for vascular surgery consult, ID consult, cardiology consult and wound care consults. Was treated with iv vancomycin, heparin drip prior to transfer here 05/08: Afebrile. Clean dry intact dressing on bilateral LE. Run of PVCs on nurse monitoring during exam 05/09: Afebrile. Clean dry intact dressing on bilateral LE 05/10: Afebrile. Clean dry intact dressing on bilateral LE. Continue IV ZOSYN and cont IV daptomycin. ECHO left ventricular systolic function is severely diminished EF 20-25%. 05/11: Patient seen and examined. Sitting up in bed, alert, NAD. Afebrile. Clean dry intact dressing on BL LE 05/12: Afebrile. Pain is not well controlled. Leg swelling slow to improve. Cr down to 1.9. Still on zosyn and micfungin IV. Wound care applied [place] 05/13: Afebrile overnight. Cr to 1.6. BP and heart rate up. Discussed with infectious disease at least another day of IV antibiotics and antifungals. Will initiate carvedilol today. 05/14: Afebrile. [place] "funny". Dry mouth some dizziness with carvedilol dosing. Discussed will cut in half. He may need Toprol-XL instead. Otherwise legs are improving, left still painful. Need to discuss with cardiology follow-up echocardiogram in next 3 months. Afebrile. Heart rate still in the 100s despite beta-bushra dosing. CR improved 1.3, K3.1. His left leg pain has resolved she still having pain in his right leg. Vitals/I&O Vitals/I&O: Vital Signs Date Time Temp Pulse Resp B/P (MAP) Pulse Ox O2 Delivery O2 Flow Rate FiO2 05/15/21 08:39 80 05/15/21 06:16 98.5 18 161/99 (119) 97 Room Air 98.5 I & O 05/14/21 05/14/21 05/15/21 15:00 23:00 07:00 Intake Total 1200 ml 650 ml Balance 1200 ml 650 ml Physical Exam Physical Exam: GENERAL: Alert, oriented x 3 male in no acute distress, nontoxic appearing. HEENT: Normocephalic, atraumatic. Anicteric. No thrush. Dentition poor. NECK: Supple, no JVD. LUNGS: Clear. HEART: S1, S2. No murmurs. ABDOMEN: Soft, nontender, nondistended. EXTREMITIES: Bilateral lower extremity dressing in place, intact, not taken down. DERM: Wound pictures noted in chart. The patient has bilateral lower extremity excoriation in the thigh. Bilateral foot callus, left toe greater than right toe. Right lower extremity wounds with ulceration noted numerous. No gross purulence noted. Edema present. LUE PICC line clean General: Alert, Oriented X3, Cooperative, No acute distress Heart: Regular rate Lungs: Clear Abdomen: Soft, No tenderness Extremities: No cyanosis, Other (Palpable pulse exam bilaterally with normal dorsalis pedis pulses, normal sounding posterior tibial Doppler signals, pa lpable femoral and popliteal pulses bilaterally) Skin: Other (Extensive superficial ulcerations bilateral lower extremities with sites of necrotic large ulcerations with 3 mm of depth. The left great toe demonstrates a Montes 1 ulceration with skin breakdown only and foot dorsum bilaterally shows unspecified severity diabetic ulcerations) Labs Labs: Laboratory Tests Test 05/14/21 11:31 05/14/21 16:56 05/14/21 20:09 05/15/21 06:25 Glucose (Fingerstick) 159 mg/dL (70-99) 144 mg/dL (70-99) 187 mg/dL (70-99) White Blood Count 7.7 x10^3/uL (4.0-11.0) Red Blood Count 3.69 x10^6/uL (4.30-5.70) Hemoglobin 10.0 g/dL (13.0-17.5) Hematocrit 30.4 % (39.0-53.0) Mean Corpuscular Volume 82 fL (79-100) Mean Corpuscular Hemoglobin 27 pg (25-35) Mean Corpuscular Hemoglobin Concent 33 g/dL (31-37) Red Cell Distribution Width 15.9 % (11.5-14.5) Platelet Count 290 x10^3/uL (140-400) Neutrophils (%) (Auto) 84 % (31-73) Lymphocytes (%) (Auto) 7 % (24-48) Monocytes (%) (Auto) 6 % (0-9) Eosinophils (%) (Auto) 2 % (0-3) Basophils (%) (Auto) 1 % (0-3) Neutrophils # (Auto) 6.5 x10^3/uL (1.8-7.7) Lymphocytes # (Auto) 0.5 x10^3/uL (1.0-4.8) Monocytes # (Auto) 0.5 x10^3/uL (0.0-1.1) Eosinophils # (Auto) 0.2 x10^3/uL (0.0-0.7) Basophils # (Auto) 0.1 x10^3/uL (0.0-0.2) Sodium Level 141 mmol/L (136-145) Potassium Level 3.1 mmol/L (3.5-5.1) Chloride Level 109 mmol/L (98-107) Carbon Dioxide Level 22 mmol/L (21-32) Anion Gap 10 (6-14) Blood Urea Nitrogen 42 mg/dL (8-26) Creatinine 1.3 mg/dL (0.7-1.3) Estimated GFR (Cockcroft-Gault) 56.3 Glucose Level 147 mg/dL (70-99) Calcium Level 8.0 mg/dL (8.5-10.1) Test 05/15/21 08:37 Glucose (Fingerstick) 146 mg/dL (70-99) Comment Review of Relevant I have reviewed the following items rosa (where applicable) has been applied. Medications: Current Medications Medications (Trade) Dose Ordered Sig/Mata Route PRN Reason Start Time Stop Time Status Last Admin Dose Admin Metoprolol Succinate (Toprol Xl) 50 mg DAILY PO 05/14/21 13:45 05/15/21 08:39 Isosorbide Mononitrate (Imdur) 30 mg DAILY PO 05/15/21 09:00 05/15/21 08:38 Hydralazine HCl (Apresoline) 50 mg BID PO 05/14/21 21:00 05/15/21 08:38 Justifications for Admission General Conditions Abnormal capillary refill?: Yes Justification for admission: Patient has tachycardia (> 100 beats per minute) or hypotension (SBP < 90 mm Hg) leading to inadequate systemic perfusion as indicated by new abnormal capillary refill of greater than 3 seconds. Other justification for admit: severe pvd Other Justification LELAND AGEE MD May 15, 2021 08:58
[2021-05-15] MEDS ORDERED: POTASSIUM CHLORIDE 20 MEQ TABLET.ER. PO ONE ×2 (09:00→10:00)
--- NOTE | 2021-05-15 09:32 | PDOC ---
DATE OF SERVICE DATE: 05/15/21 TIME: 09:31 SUBJECTIVE ROS stable, no new concerns or complaints States feeling good OBJECTIVE Vital Signs Vital Signs Date Time Temp Pulse Resp B/P (MAP) Pulse Ox O2 Delivery O2 Flow Rate FiO2 05/15/21 08:39 80 05/15/21 06:16 98.5 18 161/99 (119) 97 Room Air 98.5 I & 0 Intake and Output 05/15/21 07:00 Intake Total 1850 ml Balance 1850 ml Intake Oral 1650 ml IV Total 200 ml # Voids 3 # Bowel Movements 5 PHYSICAL EXAM Physical Exam GENERAL: no acute distress HEENT: Normocephalic, atraumatic. Anicteric. OM moist NECK: Supple, LUNGS: Clear, non labored HEART: S1, S2. No murmurs. ABDOMEN: Soft, nontender, nondistended. EXTREMITIES: Bilateral lower extremity dressing in place, DERM: exam per ID - bilateral lower extremity excoriation in the thigh. Bilateral foot callus, left toe greater than right toe. Right lower extremity wounds with ulceration noted numerous. No gross purulence noted. . No nuno, No CVA or SP tenderness NEURO Grossly normal PSYCH Cooperative Vital Signs DIAGNOSIS/ASSESSMENT Assessment & Plan ANDREEA - ATN vs AIN ,, UA unremarkable for No Micr hematuria, No casts; Renal US unremarkable , Renal function improving ,Supportive care, Monitor, I/O, avoid Nephrotoxins , fluid balance Possible CKD- baseline Unknown, obtain records from PCP(Dr. Gabriel) HypoKalemia - mild, replace BL LE cellulitis Newly diagnosed diabetes, type 2 Hyponatremia, resolved Chest Xray Persistent bilateral basilar linear opacities most likely atelectasis cannot exclude infection. Pulmonary vascular congestion versus crowding. PVD- Vascular surgery consulted HTN BP not controlled , high. Consider NORBERTO-I/ARB or Aldactone once baseline renal function established . Will need close monitoring H/o colon cancer in 2011 COMMENT/RELEVANT DATA Meds Current Medications Medications (Trade) Dose Ordered Sig/Mata Start Time Stop Time Status Last Admin Dose Admin Acetaminophen (Tylenol) 650 mg PRN Q4HRS PRN 05/07/21 15:15 05/08/21 15:11 650 MG Al Hydroxide/Mg Hydroxide (Mylanta Plus Xs) 30 ml PRN DAILY PRN 05/07/21 15:15 Albuterol Sulfate (Ventolin Neb Soln) 2.5 mg PRN Q4HRS PRN 05/07/21 15:15 Ascorbic Acid (Vitamin C) 500 mg DAILY 05/08/21 15:00 05/15/21 08:38 500 MG Aspirin (Ecotrin) 81 mg DAILYWBKFT 05/09/21 08:00 05/15/21 08:38 81 MG Carvedilol (Coreg) 3.125 mg BIDWMEALS 05/14/21 17:00 05/14/21 13:40 DC Daptomycin 570 mg/ Sodium Chloride 50 ml @ 100 mls/hr Q24H 05/08/21 11:00 05/14/21 11:05 100 MLS/HR Dextrose (Dextrose 50%-Water Syringe) 12.5 gm PRN Q15MIN PRN 05/07/21 18:00 Diphenhydramine HCl (Benadryl) 25 mg PRN Q6HRS PRN 05/09/21 11:15 05/09/21 21:53 25 MG Docusate Sodium (Colace) 100 mg PRN BID PRN 05/07/21 15:15 Enoxaparin Sodium (Lovenox 40mg Syringe) 40 mg Q24H 05/07/21 21:00 05/14/21 20:43 40 MG Guaifenesin (Robitussin) 200 mg PRN Q4HRS PRN 05/07/21 15:15 Hydralazine HCl (Apresoline) 50 mg BID 05/14/21 21:00 05/15/21 08:38 50 MG Insulin Glargine (Lantus Syringe) 10 unit QHS 05/07/21 21:00 05/14/21 20:44 10 UNIT Insulin Human Lispro (HumaLOG) 0-5 UNITS TIDWMEALS 05/08/21 08:00 Cancel Isosorbide Mononitrate (Imdur) 30 mg DAILY 05/15/21 09:00 05/15/21 08:38 30 MG Lactobacillus Rhamnosus (Culturelle) 1 cap BID 05/07/21 21:00 05/15/21 08:39 1 CAP Lidocaine HCl (Xylocaine 2% Topical 30gm Tube) 1 rowdy 1X ONCE 05/09/21 09:30 05/09/21 09:35 DC 05/09/21 14:14 1 ROWDY Metoprolol Succinate (Toprol Xl) 50 mg DAILY 05/14/21 13:45 05/15/21 08:39 50 MG Micafungin Sodium 100 mg/Dextrose 100 ml @ 100 mls/hr Q24H 05/11/21 10:00 05/15/21 08:39 100 MLS/HR Morphine Sulfate (Morphine Sulfate) 2 mg PRN Q4HRS PRN 05/12/21 10:00 05/14/21 18:24 2 MG Multivitamins/ Minerals (I-Eliazar) 1 tab DAILY 05/08/21 15:00 05/15/21 08:39 1 TAB Nifedipine (Procardia Xl) 30 mg DAILY 05/08/21 09:00 05/14/21 13:40 DC 05/14/21 08:31 30 MG Ondansetron HCl (Zofran) 4 mg PRN Q4HRS PRN 05/07/21 15:15 05/11/21 08:29 4 MG Phenol (Chloraseptic) 1 spray PRN Q2HR PRN 05/09/21 19:30 05/09/21 19:38 1 SPRAY Piperacillin Sod/ Tazobactam Sod (Zosyn Per Pharmacy) 1 each PRN DAILY PRN 05/07/21 17:15 Piperacillin Sod/ Tazobactam Sod 3.375 gm/Sodium Chloride 50 ml @ 100 mls/hr Q6HRS 05/07/21 18:00 05/15/21 05:35 100 MLS/HR Potassium Chloride (Klor-Con) 40 meq 1X ONCE 05/15/21 10:00 05/15/21 10:01 Sodium Chloride 1,000 ml @ 150 mls/hr Q6H40M 05/07/21 17:15 05/13/21 07:54 DC 05/13/21 01:05 150 MLS/HR Sodium Chloride (Normal Saline Flush) 3 ml QSHIFT PRN 05/07/21 15:15 Throat Lozenges (Cepacol Sore Throat Lozenge) 1 asya PRN Q2HRS PRN 05/09/21 19:30 Tramadol HCl (Ultram) 50 mg PRN Q6HRS PRN 05/12/21 10:00 05/15/21 05:42 50 MG Vancomycin HCl (Vanco Per Pharmacy) 1 each PRN DAILY PRN 05/07/21 17:15 05/07/21 17:50 DC Vancomycin HCl 1.75 gm/Sodium Chloride 500 ml @ 250 mls/hr Q12H 05/07/21 20:00 05/07/21 17:48 DC Zolpidem Tartrate (Ambien) 5 mg PRN QHS PRN 05/07/21 17:15 05/14/21 23:50 5 MG Lab Laboratory Tests Test 05/14/21 11:31 05/14/21 16:56 05/14/21 20:09 05/15/21 06:25 Glucose (Fingerstick) 159 mg/dL (70-99) 144 mg/dL (70-99) 187 mg/dL (70-99) White Blood Count 7.7 x10^3/uL (4.0-11.0) Red Blood Count 3.69 x10^6/uL (4.30-5.70) Hemoglobin 10.0 g/dL (13.0-17.5) Hematocrit 30.4 % (39.0-53.0) Mean Corpuscular Volume 82 fL (79-100) Mean Corpuscular Hemoglobin 27 pg (25-35) Mean Corpuscular Hemoglobin Concent 33 g/dL (31-37) Red Cell Distribution Width 15.9 % (11.5-14.5) Platelet Count 290 x10^3/uL (140-400) Neutrophils (%) (Auto) 84 % (31-73) Lymphocytes (%) (Auto) 7 % (24-48) Monocytes (%) (Auto) 6 % (0-9) Eosinophils (%) (Auto) 2 % (0-3) Basophils (%) (Auto) 1 % (0-3) Neutrophils # (Auto) 6.5 x10^3/uL (1.8-7.7) Lymphocytes # (Auto) 0.5 x10^3/uL (1.0-4.8) Monocytes # (Auto) 0.5 x10^3/uL (0.0-1.1) Eosinophils # (Auto) 0.2 x10^3/uL (0.0-0.7) Basophils # (Auto) 0.1 x10^3/uL (0.0-0.2) Sodium Level 141 mmol/L (136-145) Potassium Level 3.1 mmol/L (3.5-5.1) Chloride Level 109 mmol/L (98-107) Carbon Dioxide Level 22 mmol/L (21-32) Anion Gap 10 (6-14) Blood Urea Nitrogen 42 mg/dL (8-26) Creatinine 1.3 mg/dL (0.7-1.3) Estimated GFR (Cockcroft-Gault) 56.3 Glucose Level 147 mg/dL (70-99) Calcium Level 8.0 mg/dL (8.5-10.1) Test 05/15/21 08:37 Glucose (Fingerstick) 146 mg/dL (70-99) Results All relevant outside records, renal labs, imaging studies, telemetry/EKG's were reviewed. Justicifation of Admission Dx: Justifications for Admission: Justification of Admission Dx: Yes ELLI SMITH MD May 15, 2021 09:32
[2021-05-15] MEDS: DOXYCYCLINE HYCLATE 100 MG TABLET PO SCH ×2 (10:43→20:42)
[2021-05-15] MEDS: AMOXICILLIN/K CLAV 875/125MG TABLET. PO SCH ×2 (10:43→20:41)
[2021-05-15 10:46] VITALS: BP 158/90
--- NOTE | 2021-05-15 11:40 | PDOC ---
JODY MARIN [employer] 05/15/21 1140: CARDIO Progress Notes Date and Time Date of Service 05/15/2021 Time of Evaluation 1120 Subjective Subjective: No Chest Pain, No shortness of breath, No Palpitations Vitals Vitals Vital Signs Date Time Temp Pulse Resp B/P (MAP) Pulse Ox O2 Delivery O2 Flow Rate FiO2 05/15/21 08:39 80 05/15/21 06:16 98.5 18 161/99 (119) 97 Room Air 98.5 Weight Weight [ ] Input and Output Intake and Output Intake and Output 05/15/21 07:00 Intake Total 1850 ml Balance 1850 ml Intake Oral 1650 ml IV Total 200 ml # Voids 3 # Bowel Movements 5 Laboratory Labs Laboratory Tests Test 05/14/21 11:31 05/14/21 16:56 05/14/21 20:09 05/15/21 06:25 Glucose (Fingerstick) 159 mg/dL (70-99) 144 mg/dL (70-99) 187 mg/dL (70-99) White Blood Count 7.7 x10^3/uL (4.0-11.0) Red Blood Count 3.69 x10^6/uL (4.30-5.70) Hemoglobin 10.0 g/dL (13.0-17.5) Hematocrit 30.4 % (39.0-53.0) Mean Corpuscular Volume 82 fL (79-100) Mean Corpuscular Hemoglobin 27 pg (25-35) Mean Corpuscular Hemoglobin Concent 33 g/dL (31-37) Red Cell Distribution Width 15.9 % (11.5-14.5) Platelet Count 290 x10^3/uL (140-400) Neutrophils (%) (Auto) 84 % (31-73) Lymphocytes (%) (Auto) 7 % (24-48) Monocytes (%) (Auto) 6 % (0-9) Eosinophils (%) (Auto) 2 % (0-3) Basophils (%) (Auto) 1 % (0-3) Neutrophils # (Auto) 6.5 x10^3/uL (1.8-7.7) Lymphocytes # (Auto) 0.5 x10^3/uL (1.0-4.8) Monocytes # (Auto) 0.5 x10^3/uL (0.0-1.1) Eosinophils # (Auto) 0.2 x10^3/uL (0.0-0.7) Basophils # (Auto) 0.1 x10^3/uL (0.0-0.2) Sodium Level 141 mmol/L (136-145) Potassium Level 3.1 mmol/L (3.5-5.1) Chloride Level 109 mmol/L (98-107) Carbon Dioxide Level 22 mmol/L (21-32) Anion Gap 10 (6-14) Blood Urea Nitrogen 42 mg/dL (8-26) Creatinine 1.3 mg/dL (0.7-1.3) Estimated GFR (Cockcroft-Gault) 56.3 Glucose Level 147 mg/dL (70-99) Calcium Level 8.0 mg/dL (8.5-10.1) Test 05/15/21 08:37 Glucose (Fingerstick) 146 mg/dL (70-99) Microbiology Micro Microbiology 05/07/21 Blood Culture - Final, Complete NO GROWTH AFTER 5 DAYS Physical Exam HEENT: Neck Supple W Full Motion Chest: Symmetric LUNGS: Other (diminished bases) Heart: RRR (SR/ST) Abdomen: Soft N/T Extremities: Other (bilateral LE cellulitis, drsgs intact ) Neurology: alert, oriented, follow commands Assessment Assessment 1. LE cellulitis: Continue IV antibiotics. ID following 2. ANDREEA on CKD; now optimized, nephrology following 3. Uncontrolled diabetes, II; as per IM 4. Mild troponin elevation; highest 0.28. Most probably type II, demand ischemia in setting of above. CP free. 2D echo showed EF 20-25%. compensated overall 5. Arrhythmia; appears to have bursts of PAFIB on tele: maintaining SR 6. Hypertensive urgency: better 7. PAD; arterial duplex with occlusion of left peroneal artery. No major vascular stenosis above the knee Vascular saw him 8. Hypokalemia 9. Cardiomyopathy: EF 20-25% per TTE. Compensated Recommendations 1. Meds per GDMT, Continue hydralazine/imdur/toprol. Start on low dose lisinopril. Replace K. Will increase toprol if HR remains >90. Lasix PRN 2. Continue ASA therapy. Start on statin 3. Outpt ischemic evaluation. Discussed GDMT and workup plan.He is CP free. He would like to go home and await for his medicaid approval and he will notify our office for follow up. 4. CHF education including 2L FR, daily wt, HBPM, Dietitian consult. Justicifation of Admission Dx: Justifications for Admission: Justification of Admission Dx: Yes HERNAN HEALY MD 05/15/21 9759: CARDIO Progress Notes Plan Plan The patient was seen and interviewed as well as examined at the bedside. The [facility] was reviewed. The case was discussed. Agree with the plan of care. JODY MARIN APRN May 15, 2021 11:40 HERNAN HEALY MD May 15, 2021 18:49
--- NOTE | 2021-05-15 11:55 | NUR ---
SS following up with discharge planning. SS reviewed pt chart and discussed with pt RN. Pt is currently on room air. Pt antibiotics being switched to PO. Wound care following. New EF of 20%. PT/OT recommended [facility]. Self pay. Discharge plan is to home. Per [employer] applications for SSI/Disability and Medicaid have been submitted. Pt may have spend down. Dr. Bergman met with pt and discussed LTC placement. Pt currently declining LTC placement stating that he does not want placement. Pt stated that he has to continue to pay rent to help out his brother. [facility], ; fax [phone], agreeable to follow for [facility] for RN and wound care for teaching. Physician notified. SS will continue to follow for discharge planning.
[2021-05-15] MEDS: LISINOPRIL 5 MG TABLET. PO SCH (12:30)
[2021-05-15 13:03] LABS: CHOLESTEROL/HDL RATIO 4.3
[2021-05-15] MEDS: MORPHINE SULFATE 2 MG/ML INJ. IVP PRN (14:30)
--- NOTE | 2021-05-15 15:55 | PDOC ---
Progress Note-Wound Care SUBJECTIVE Patient complains of pain, 3 out of 10 at rest and 8 out of 10 with palpation and cleansing to the bilateral lower extremity. Patient's states current pain medication regimen is controlling pain. Patient states that he has regained his appetite and is eating and drinking well without nausea, vomiting or diarrhea. Patient states that he has began ambulating again, however feels weak secondary to sedentary state. OBJECTIVE Vital Signs Vital Signs Date Time Temp Pulse Resp B/P (MAP) Pulse Ox O2 Delivery O2 Flow Rate FiO2 05/14/21 07:00 97.7 98 17 165/95 (118) 96 Room Air 97.7 Vital Signs Date Time Temp Pulse Resp B/P (MAP) Pulse Ox O2 Delivery O2 Flow Rate FiO2 05/15/21 12:30 99 05/15/21 10:46 98.6 18 158/90 (112) 98 Room Air 98.6 Physical Exam: Patient awake and alert 60-year-old male in no apparent distress. Respirations are even and unlabored. Patient is on room air not requiring supplemental oxygen. Abdomen is soft, nondistended, nontender and obese. Bilateral lower extremities with significant wounding encompassing circumference of legs more prominent to anterior lower legs. Moderate to copious serosanguineous drainage continues. Edema has significantly improved along with erythema. Mild erythema persists to right lower extremity. No odor present following wound cleansing. 0.2 x 0.4 x 0.4 cm open ulceration noted to plantar aspect of left great toe. Significant callus formation surrounds wound. No erythema or edema present. Following written consent and application of topical lidocaine for ample period of time nonviable tissue as well as minimal viable tissue excisionally debrided from wound beds of the lower extremities using sterile curette, sterile scalpel and pickups. Patient tolerated with minimal painful symptoms which were relieved immediately following procedure. Minimal bleeding controlled with pressure. Remaining slough and eschar to lower extremities crosshatched with sterile scalpel to allow for improved autolytic debridement with Thera honey. Sterile curette used to debride callus and minimal viable tissue from ulcer of left great toe. Bleeding controlled with pressure. Patient denied painful symptoms. PLAN 1)Bilateral lower extremity cellulitis with significant wounding -Debrided at bedside. Areas not able to be debrided, crosshatched to allow for improved autolytic debridement by Thera honey. -Serial debridement of legs to lower extremities will be required -Patient currently being followed by ID for antibiotic management -Cleanse and pat dry affected areas. Apply Thera honey to wounds with nonviable tissue. Cover with Aquasol AG, ABD and secure with Kerlix. Change daily or as needed if dressing loose or saturated -Vascular consulted on patient and no intervention needed at this time. 2) diabetic foot ulcer to the left great toe -Debrided at bedside. -PCP addressing diabetic management -Cleanse and pat dry. Apply skin prep to surrounding tissue. Apply collagen to wound bed. Cover with foam and secure with Kerlix. -Recommend surgical shoe for offloading of the affected area -Dietary consulting to ensure patient with adequate protein intake for optimal wound healing MONIE MORENO [employer] PROJECT MANAGER May 15, 2021 15:55
[2021-05-15 15:59] VITALS: BP 131/84
--- NOTE | 2021-05-15 16:13 | NUR ---
Wound Care Wound Type/Assessment: Wound care follow up for bilateral plantar great toes DFUs and bilateral lower leg cellulitis. Bedside debridement to bilateral lower legs and left plantar toe done by DAVION Olivares, pt tolerated procedure well. All wounds cleansed, pictured and measured after debridement, new dressings applied. Continue with same dressing changes for now. Pt is self-pay and unable to follow up at [facility] but states that PCP might be able to help him with dressing changes. Treatment Recommendations/Plan: Cleanse all wounds with saline or wound wash. Right great toe wound: cover with aquacel ag, gauze and tape, change daily. Bilateral lower legs: apply thera-honey gel to the yellow slough areas then apply Aquacel ag over, cover with ABDs or briefs, Kerlix and tape, then apply size G medigrips, change daily Education provided: pt educated on leg elevation and PU prevention Recommendations: n/a Discharge Recommendations for dressings: Wound care will f/u on 05/19/21
[2021-05-15 19:00] VITALS: BP 141/84
[2021-05-15] MEDS: ENOXAPARIN 40 MG/0.4 ML SYRINGE. SQ SCH (20:44)
[2021-05-15] MEDS: INSULIN GLARGINE SYRINGE. SQ SCH (20:50)
[2021-05-15] MEDS ORDERED: ATORVASTATIN CALCIUM 40 MG TABLET. PO SCH (21:00)
[2021-05-15 22:58] VITALS: BP 138/82
[2021-05-15] MEDS: ZOLPIDEM 5 MG TABLET. PO PRN (23:29)
[2021-05-16 02:19] VITALS: BP 152/88
[2021-05-16] MEDS: traMADol 50 MG TABLET PO PRN ×2 (02:23→13:42)
[2021-05-16 06:16] VITALS: BP 139/85
[2021-05-16] MEDS ORDERED: HYDR-2869 PO (07:07)
[2021-05-16] MEDS ORDERED: ATOR40TA59 PO (07:07)
[2021-05-16] MEDS ORDERED: AMOX1TAB11 PO (07:07)
[2021-05-16] MEDS ORDERED: DOXY100T PO (07:07)
[2021-05-16] MEDS ORDERED: METO50TA4 PO ×2 (07:07→14:33)
[2021-05-16] MEDS ORDERED: INSU100V5 SQ (07:07)
[2021-05-16] MEDS ORDERED: ISOS30TA68 PO (07:07)
[2021-05-16] MEDS ORDERED: NPH,100V SQ (07:07)
--- NOTE | 2021-05-16 07:11 | PDOC ---
[employer] PROGRESS NOTE Date of Service DOS: DATE: 05/16/21 TIME: 07:10 Chief Complaint Chief Complaint A/P: Bilateral lower extremity cellulitis - ID consulted, on vancomycin, micafungin Elevated troponin I (0.265) Newly diagnosed diabetes, type 2 - A1C 11.8 ANDREEA - on CKD, vasmotor nephropathy Hyponatremia, resolved PVD Left great toe diabetic ulcer H/o colon cancer in 2011 Lactic acidosis - due to cellulitis, improved Chronic systolic CHF - 2D echo showed EF 20-25%. CXR does not show any overt fluid overload. Ischemic evaluation once cellulitis resolves, possibly as outpatient Hypertensive urgency - now controlled. PAD - arterial duplex with occlusion of left peroneal artery. No major vascular stenosis above the knee - manage conservatively per vascular team FEN - ADA cardiac diet PPX - heparin FULL CODE Dispo - inpatient History of Present Illness History of Present Illness Mr Coffey is a 60-year-old man is medical history hypertension and newly diagnosed diabetes who is transferred from [facility], with bilateral lower ext cellulitis, suspected PVD , near occlusion of left peroneal artery by doppler 05/07/21. Cr 1.5 na = 131, bun 35, glucose 506, troponin i 0.105, BGB 14.6 LA 2.4 K=4.8 CRP 293 PLTS 297 ESR =34 Transferred for vascular surgery consult, ID consult, cardiology consult and wound care consults. Was treated with iv vancomycin, heparin drip prior to transfer here 05/08: Afebrile. Clean dry intact dressing on bilateral LE. Run of PVCs on media monitor during exam 05/09: Afebrile. Clean dry intact dressing on bilateral LE 05/10: Afebrile. Clean dry intact dressing on bilateral LE. Continue IV ZOSYN and cont IV daptomycin. ECHO left ventricular systolic function is severely diminished EF 20-25%. 05/11: Patient seen and examined. Sitting up in bed, alert, NAD. Afebrile. Clean dry intact dressing on BL LE 05/12: Afebrile. Pain is not well controlled. Leg swelling slow to improve. Cr down to 1.9. Still on zosyn and micfungin IV. Wound care applied medihola grange 05/13: Afebrile overnight. Cr to 1.6. BP and heart rate up. Discussed with infectious disease at least another day of IV antibiotics and antifungals. Will initiate carvedilol today. 05/14: Afebrile. Franklin "funny". Dry mouth some dizziness with carvedilol dosing. Discussed will cut in half. He may need Toprol-XL instead. Otherwise legs are improving, left still painful. Need to discuss with cardiology follow-up echocardiogram in next 3 months. 05/15: Afebrile. Heart rate still in the 100s despite beta-bushra dosing. CR improved 1.3, K3.1. His left leg pain has resolved she still having pain in his right leg. Afebrile. Symptoms improved. Wounds examined with wound care bedside. Underwent diabetic in congestive heart failure education has home health from [facility] for next week and then will follow up with Dr. Diego. Will follow up with cardiology in 3 months for repeat echocardiogram. Consults: Vascular surgery, cardiology, nephrology, infectious diseases Vitals/I&O Vitals/I&O: Vital Signs Date Time Temp Pulse Resp B/P (MAP) Pulse Ox O2 Delivery O2 Flow Rate FiO2 05/16/21 06:16 97.9 92 20 139/85 (103) 98 Room Air 97.9 I & O 05/15/21 05/15/21 05/16/21 15:00 23:00 07:00 Intake Total 575 ml 300 ml 200 ml Balance 575 ml 300 ml 200 ml Physical Exam Physical Exam: GENERAL: Alert, oriented x 3 male in no acute distress, nontoxic appearing. HEENT: Normocephalic, atraumatic. Anicteric. No thrush. Dentition poor. NECK: Supple, no JVD. LUNGS: Clear. HEART: S1, S2. No murmurs. ABDOMEN: Soft, nontender, nondistended. EXTREMITIES: Bilateral lower extremity dressing in place, intact, not taken down. DERM: Wound pictures noted in chart. The patient has bilateral lower extremity excoriation in the thigh. Bilateral foot callus, left toe greater than right toe. Right lower extremity wounds with ulceration noted numerous. No gross purulence noted. Edema present. LUE PICC line clean General: Alert, Oriented X3, Cooperative, No acute distress Heart: Regular rate Lungs: Clear Abdomen: Soft, No tenderness Extremities: No cyanosis, Other (Palpable pulse exam bilaterally with normal dorsalis pedis pulses, normal sounding posterior tibial Doppler signals, palpable femoral and popliteal pulses bilaterally) Skin: Other (Extensive superficial ulcerations bilateral lower extremities with sites of necrotic large ulcerations with 3 mm of depth. The left great toe demonstrates a Montes 1 ulceration with skin breakdown only and foot dorsum bilaterally shows unspecified severity diabetic ulcerations) Labs Labs: Laboratory Tests Test 05/15/21 08:37 05/15/21 12:30 05/15/21 17:34 05/15/21 20:33 Glucose (Fingerstick) 146 mg/dL (70-99) 180 mg/dL (70-99) 150 mg/dL (70-99) 169 mg/dL (70-99) Test 05/16/21 06:55 Glucose (Fingerstick) 153 mg/dL (70-99) Comment Review of Relevant I have reviewed the following items rosa (where applicable) has been applied. Medications: Current Medications Medications (Trade) Dose Ordered Sig/Mata Route PRN Reason Start Time Stop Time Status Last Admin Dose Admin Isosorbide Mononitrate (Imdur) 30 mg DAILY PO 05/15/21 09:00 05/15/21 08:38 Potassium Chloride (Klor-Con) 40 meq 1X ONCE PO 05/15/21 09:00 05/15/21 09:04 DC 05/15/21 09:33 Potassium Chloride (Klor-Con) 40 meq 1X ONCE PO 05/15/21 10:00 05/15/21 10:01 DC 05/15/21 10:44 Amoxicillin/ Clavulanate Potassium (Augmentin 875/ 125mg) 1 tab BID PO 05/15/21 10:00 05/15/21 20:41 Doxycycline Hyclate (Vibra-Tab) 100 mg BID PO 05/15/21 10:00 05/15/21 20:42 Lisinopril (Prinivil) 5 mg DAILY PO 05/15/21 12:30 05/15/21 12:30 Atorvastatin Calcium (Lipitor) 40 mg QHS PO 05/15/21 21:00 05/15/21 20:41 Justifications for Admission General Conditions Abnormal capillary refill?: Yes Justification for admission: Patient has tachycardia (> 100 beats per minute) or hypotension (SBP < 90 mm Hg) leading to inadequate systemic perfusion as indicated by new abnormal capillary refill of greater than 3 seconds. Other justification for admit: severe pvd Other Justification RIFFEL,CHRISTOPHER S MD May 16, 2021 07:10
[2021-05-16] MEDS: INSULIN LISPRO 300 UNITS/3 ML VIAL. SQ SCH ×3 (08:00→17:00)
--- NOTE | 2021-05-16 08:35 | PDOC ---
Infectious Disease Note Subjective: Subjective Patient feels better Underwent bedside debridement by wound team yesterday No fevers, nausea, vomiting Diarrhea has improved Patient has refused for placement Vital Signs: Vital Signs Vital Signs Date Time Temp Pulse Resp B/P (MAP) Pulse Ox O2 Delivery O2 Flow Rate FiO2 05/16/21 06:16 97.9 92 20 139/85 (103) 98 Room Air 97.9 Physical Exam: PHYSICAL EXAM GENERAL: Alert, oriented x 3 male in no acute distress, nontoxic appearing. HEENT: Normocephalic, atraumatic. Anicteric. No thrush. Dentition poor. NECK: Supple, no JVD. LUNGS: Clear. HEART: S1, S2. No murmurs. ABDOMEN: Soft, nontender, nondistended. EXTREMITIES: Bilateral lower extremity dressing in place, intact, not taken down. DERM: Bilateral lower extremity wound dressing present edema present. LUE PICC line clean Medications: Inpatient Meds: Medications reviewed. Labs: Lab Laboratory Tests Test 05/15/21 08:37 05/15/21 12:30 05/15/21 17:34 05/15/21 20:33 Glucose (Fingerstick) 146 mg/dL (70-99) 180 mg/dL (70-99) 150 mg/dL (70-99) 169 mg/dL (70-99) Test 05/16/21 06:55 Glucose (Fingerstick) 153 mg/dL (70-99) Objective: Assessment: 1. Bilateral lower extremity chronic wounds. 2. Mild superimposed cellulitis 3. Peripheral arterial disease. 4. Leukocytosis, was on steroids. 5. Lactic acidosis. 6. Acute kidney injury. 7. Uncontrolled diabetes. 8. History of noncompliance. 9. Eczema. 10. History of colon cancer. Plan: Plan of Care Transitioned to p.o.augmentin and doxy Patient would benefit from placement which he is refusing Continue local wound care per wound team We will sign off Call with any questions or concerns Discussed with Dr Bergman. Discussed with nursing staff EH BASS MD May 16, 2021 08:35
[2021-05-16] MEDS: LISINOPRIL 5 MG TABLET. PO SCH (09:01)
[2021-05-16] MEDS: AMOXICILLIN/K CLAV 875/125MG TABLET. PO SCH (09:01)
[2021-05-16] MEDS: LACTOBACILLUS RHAMNOSUS GG 1 CAPSULE. PO SCH (09:01)
[2021-05-16] MEDS: ASCORBIC ACID 500 MG TABLET PO SCH (09:01)
[2021-05-16] MEDS: ISOSORBIDE MONONITRATE ER 30 MG TAB.ER.24H PO SCH (09:01)
[2021-05-16] MEDS: MULTIVITAMIN I-VITE TABLET. PO SCH (09:01)
[2021-05-16] MEDS: ASPIRIN ENTERIC COATED 81 MG TABLET.DR. PO SCH (09:01)
[2021-05-16] MEDS: METOPROLOL SUCC 24HR ER 50 MG TAB.ER.24H. PO SCH (09:02)
[2021-05-16] MEDS: DOXYCYCLINE HYCLATE 100 MG TABLET PO SCH (09:02)
--- NOTE | 2021-05-16 09:56 | PDOC ---
DATE OF SERVICE DATE: 05/16/21 TIME: 09:55 SUBJECTIVE ROS stable, no new concerns or complaints OBJECTIVE Vital Signs Vital Signs Date Time Temp Pulse Resp B/P (MAP) Pulse Ox O2 Delivery O2 Flow Rate FiO2 05/16/21 09:02 90 05/16/21 06:16 97.9 20 139/85 (103) 98 Room Air 97.9 I & 0 Intake and Output 05/16/21 06:59 Intake Total 1075 ml Balance 1075 ml Intake Oral 1075 ml # Voids 4 # Bowel Movements 3 PHYSICAL EXAM Physical Exam GENERAL: no acute distress HEENT: Normocephalic, atraumatic. Anicteric. OM moist NECK: Supple, LUNGS: Clear, non labored HEART: S1, S2. No murmurs. ABDOMEN: Soft, nontender, nondistended. EXTREMITIES: Bilateral lower extremity dressing in place, DERM: exam per ID - bilateral lower extremity excoriation in the thigh. Bilateral foot callus, left toe greater than right toe. Right lower extremity wounds with ulceration noted numerous. No gross purulence noted. . No nuno, No CVA or SP tenderness NEURO Grossly normal PSYCH Cooperative DIAGNOSIS/ASSESSMENT Assessment & Plan ANDREEA - ATN vs AIN ,, UA unremarkable for No Micr hematuria, No casts; Renal US unremarkable , Renal function improved ,Supportive care, Monitor, I/O, avoid Nephrotoxins , fluid balance Possible CKD- baseline Unknown, obtain records from PCP(Dr. Gabriel) HypoKalemia - mild, replace BL LE cellulitis Newly diagnosed diabetes, type 2 Hyponatremia, resolved Chest Xray Persistent bilateral basilar linear opacities most likely atelectasis cannot exclude infection. Pulmonary vascular congestion versus crowding. PVD- Vascular surgery consulted HTN BP not controlled , high. Consider NORBERTO-I/ARB or Aldactone once baseline renal function established . Will need close monitoring H/o colon cancer in 2012 Will sign off COMMENT/RELEVANT DATA Meds Current Medications Medications (Trade) Dose Ordered Sig/Mata Start Time Stop Time Status Last Admin Dose Admin Acetaminophen (Tylenol) 650 mg PRN Q4HRS PRN 05/07/21 15:15 05/08/21 15:11 650 MG Al Hydroxide/Mg Hydroxide (Mylanta Plus Xs) 30 ml PRN DAILY PRN 05/07/21 15:15 Albuterol Sulfate (Ventolin Neb Soln) 2.5 mg PRN Q4HRS PRN 05/07/21 15:15 Amoxicillin/ Clavulanate Potassium (Augmentin 875/ 125mg) 1 tab BID 05/15/21 10:00 05/16/21 09:01 1 TAB Ascorbic Acid (Vitamin C) 500 mg DAILY 05/08/21 15:00 05/16/21 09:01 500 MG Aspirin (Ecotrin) 81 mg DAILYWBKFT 05/09/21 08:00 05/16/21 09:01 81 MG Atorvastatin Calcium (Lipitor) 40 mg QHS 05/15/21 21:00 05/15/21 20:41 40 MG Carvedilol (Coreg) 3.125 mg BIDWMEALS 05/14/21 17:00 05/14/21 13:40 DC Daptomycin 570 mg/ Sodium Chloride 50 ml @ 100 mls/hr Q24H 05/08/21 11:00 05/15/21 10:07 DC 05/14/21 11:05 100 MLS/HR Dextrose (Dextrose 50%-Water Syringe) 12.5 gm PRN Q15MIN PRN 05/07/21 18:00 Diphenhydramine HCl (Benadryl) 25 mg PRN Q6HRS PRN 05/09/21 11:15 05/09/21 21:53 25 MG Docusate Sodium (Colace) 100 mg PRN BID PRN 05/07/21 15:15 Doxycycline Hyclate (Vibra-Tab) 100 mg BID 05/15/21 10:00 05/16/21 09:02 100 MG Enoxaparin Sodium (Lovenox 40mg Syringe) 40 mg Q24H 05/07/21 21:00 05/15/21 20:44 40 MG Guaifenesin (Robitussin) 200 mg PRN Q4HRS PRN 05/07/21 15:15 Hydralazine HCl (Apresoline) 50 mg BID 05/14/21 21:00 05/16/21 09:01 50 MG Insulin Glargine (Lantus Syringe) 10 unit QHS 05/07/21 21:00 05/15/21 20:50 10 UNIT Insulin Human Lispro (HumaLOG) 0-5 UNITS TIDWMEALS 05/08/21 08:00 Cancel Isosorbide Mononitrate (Imdur) 30 mg DAILY 05/15/21 09:00 05/16/21 09:01 30 MG Lactobacillus Rhamnosus (Culturelle) 1 cap BID 05/07/21 21:00 05/16/21 09:01 1 CAP Lidocaine HCl (Xylocaine 2% Topical 30gm Tube) 1 rowdy 1X ONCE 05/09/21 09:30 05/09/21 09:35 DC 05/09/21 14:14 1 ROWDY Lisinopril (Prinivil) 5 mg DAILY 05/15/21 12:30 05/16/21 09:01 5 MG Metoprolol Succinate (Toprol Xl) 50 mg DAILY 05/14/21 13:45 05/16/21 09:02 50 MG Micafungin Sodium 100 mg/Dextrose 100 ml @ 100 mls/hr Q24H 05/11/21 10:00 05/15/21 10:07 DC 05/15/21 08:39 100 MLS/HR Morphine Sulfate (Morphine Sulfate) 2 mg PRN Q4HRS PRN 05/12/21 10:00 05/15/21 14:30 2 MG Multivitamins/ Minerals (I-Eliazar) 1 tab DAILY 05/08/21 15:00 05/16/21 09:01 1 TAB Nifedipine (Procardia Xl) 30 mg DAILY 05/08/21 09:00 05/14/21 13:40 DC 05/14/21 08:31 30 MG Ondansetron HCl (Zofran) 4 mg PRN Q4HRS PRN 05/07/21 15:15 05/11/21 08:29 4 MG Phenol (Chloraseptic) 1 spray PRN Q2HR PRN 05/09/21 19:30 05/09/21 19:38 1 SPRAY Piperacillin Sod/ Tazobactam Sod (Zosyn Per Pharmacy) 1 each PRN DAILY PRN 05/07/21 17:15 Cancel Piperacillin Sod/ Tazobactam Sod 3.375 gm/Sodium Chloride 50 ml @ 100 mls/hr Q6HRS 05/07/21 18:00 05/15/21 10:07 DC 05/15/21 05:35 100 MLS/HR Potassium Chloride (Klor-Con) 40 meq 1X ONCE 05/15/21 10:00 05/15/21 10:01 DC 05/15/21 10:44 40 MEQ Sodium Chloride 1,000 ml @ 150 mls/hr Q6H40M 05/07/21 17:15 05/13/21 07:54 DC 05/13/21 01:05 150 MLS/HR Sodium Chloride (Normal Saline Flush) 3 ml QSHIFT PRN 05/07/21 15:15 Throat Lozenges (Cepacol Sore Throat Lozenge) 1 asya PRN Q2HRS PRN 05/09/21 19:30 Tramadol HCl (Ultram) 50 mg PRN Q6HRS PRN 05/12/21 10:00 05/16/21 02:23 50 MG Vancomycin HCl (Vanco Per Pharmacy) 1 each PRN DAILY PRN 05/07/21 17:15 05/07/21 17:50 DC Vancomycin HCl 1.75 gm/Sodium Chloride 500 ml @ 250 mls/hr Q12H 05/07/21 20:00 05/07/21 17:48 DC Zolpidem Tartrate (Ambien) 5 mg PRN QHS PRN 05/07/21 17:15 05/15/21 23:29 5 MG Lab Laboratory Tests Test 05/15/21 12:30 05/15/21 17:34 05/15/21 20:33 05/16/21 06:55 Glucose (Fingerstick) 180 mg/dL (70-99) 150 mg/dL (70-99) 169 mg/dL (70-99) 153 mg/dL (70-99) Results All relevant outside records, renal labs, imaging studies, telemetry/EKG's were reviewed. Justicifation of Admission Dx: Justifications for Admission: Justification of Admission Dx: Yes ELLI SMITH MD May 16, 2021 09:56
[2021-05-16 10:44] VITALS: BP 136/83
--- NOTE | 2021-05-16 11:19 | NUR ---
SS following up with discharge planning. SS reviewed pt chart and discussed with pt RN. Pt is currently on room air. PO antibiotics. Wound care following. Self pay. Med assist following. Disability and Medicaid applications submitted and currently pending. [facility]charge plan [facility] to home [facility], ; fax [phone]. Resources provided for outpatient follow up. SS will continue to follow for discharge planning.
--- NOTE | 2021-05-16 12:32 | SNU/HH DC ---
DISCHARGE WITH HOME HEALTH DISCHARGE INFORMATION: Discharge Date: May 16, 2021 Final Diagnosis: Bilateral lower extremity cellulitis. Condition on Discharge: Stable CODE STATUS: Code Status: Full HOME HEALTH: Face to Face: I certify this patient is under my care and that I, or a nurse practitioner or physician's chef assistant working with me, had a face to face encounter that meets the physician face to face encounter requirements with this patient on 05/16/2021. Medical Complications: CHF, DM Long-Term For: Assess/Skilled Observatio, Diabetic Care, Medication Management RN For Eval/Treatment: Yes Physical Therapy For: Evalulation/Treatment Occupational Therapy For: Evaluation/Treatment Pt Meets Homebound Status: Extreme weakness w/ amb. POST DISCHARGE ORDERS: Activity Instructions for Disc: Resume previous activity Weight Bearing Status after Di: Full weight bearing DIET AFTER DISCHARGE: ADA Wound/Incision Care: Keep wound elevated, Change dressing CHECKS AFTER DISCHARGE: Checks after discharge: Check blood press - daily, Check blood sugar, ac/hs, Check your Temp as needed, Weigh Yourself Daily FOLLOW-UP: PCP to follow Home Health: Dr. Andrea Diego Additional Instructions: Call to follow up with cardiology [id number] [address] [place] [address] [facility] Doctors: Adonis [address], [address] [place] [address] CERTIFICATION STATEMENT: Certification Statement: Certification Statement: Based on the above finding, I certify that this patient is confined to the home and needs intermittent fci care, physical therapy and/or speech therapy, or continues to need occupational therapy.~ This patient is under my care, and I have initiated the establishment of the plan of care.~ This patient will be followed by myself or a community physician who will periodically review the plan of care. Home Meds Active Scripts Insulin Regular, Human (HUMULIN R) 100 Unit/1 Ml Vial, 0-9 UNIT SQ TIDAC for DM2 for 30 Days, #6 EACH 11 Refills Prov:LELAND AGEE MD 05/16/21 Nph, Human Insulin Isophane (HUMULIN N) 100 Unit/1 Ml Vial, 10 UNIT SQ BID for DM2 for 30 Days, #6 EACH 11 Refills Prov:LELAND AGEE MD 05/16/21 Hydralazine Hcl (HYDRALAZINE HCL) 50 Mg Tablet, 50 MG PO TID for CHF for 30 Days, #90 TAB Prov:LELAND AGEE MD 05/16/21 Isosorbide Mononitrate (ISOSORBIDE MONONITRATE ER) 30 Mg Tab.er.24h, 30 MG PO DAILY for CHF for 30 Days, #30 TAB.SR 4 Refills Prov:LELAND AEGE MD 05/16/21 Metoprolol Succinate (Toprol XL) 50 Mg Tab.er.24h, 50 MG PO DAILY for CHF for 30 Days, #30 TAB.SR 4 Refills Prov:LELAND AGEE MD 05/16/21 Atorvastatin Calcium (ATORVASTATIN CALCIUM) 40 Mg Tablet, 40 MG PO QHS for CHF for 30 Days, #30 TAB 2 Refills Prov:LELAND AGEE MD 05/16/21 Doxycycline Hyclate (DOXYCYCLINE HYCLATE) 100 Mg Tablet, 100 MG PO BID for Cellulitis for 7 Days, #14 TAB Prov:LELAND AGEE MD 05/16/21 Amoxicillin/Potassium Clav (AMOX TR-K CLV 875-125 MG TAB) 1 Each Tablet, 1 TAB PO BID for Cellulitis for 7 Days, #14 TAB Prov:LELAND AGEE MD 05/16/21 LELAND AGEE MD May 16, 2021 12:32
[2021-05-16] MEDS ORDERED: GLIP5TAB10 PO (12:34)
--- NOTE | 2021-05-16 12:38 | PDOC3 ---
Discharge Summary Visit Information Date of Admission: May 07, 2021 Date of Discharge: May 16, 2021 Admitting Diagnosis: Bilateral lower extremity cellulitis Final Diagnosis Reduced ejection fraction heart failure EF 20 to 25%, newly diagnosed diabetes, bilateral lower extremity cellulitis and wounds Brief Hospital Course Allergies Allergies Coded Allergies Type Severity Reaction Last Updated Verified No Known Drug Allergies 05/07/21 No Vital Signs Vital Signs Date Time Temp Pulse Resp B/P (MAP) Pulse Ox O2 Delivery O2 Flow Rate FiO2 05/16/21 10:44 97.7 95 18 136/83 (100) 98 Room Air 97.7 Lab Results Laboratory Tests Test 05/14/21 16:56 05/14/21 20:09 05/15/21 06:25 05/15/21 08:37 Glucose (Fingerstick) 144 mg/dL (70-99) 187 mg/dL (70-99) 146 mg/dL (70-99) White Blood Count 7.7 x10^3/uL (4.0-11.0) Red Blood Count 3.69 x10^6/uL (4.30-5.70) Hemoglobin 10.0 g/dL (13.0-17.5) Hematocrit 30.4 % (39.0-53.0) Mean Corpuscular Volume 82 fL (79-100) Mean Corpuscular Hemoglobin 27 pg (25-35) Mean Corpuscular Hemoglobin Concent 33 g/dL (31-37) Red Cell Distribution Width 15.9 % (11.5-14.5) Platelet Count 290 x10^3/uL (140-400) Neutrophils (%) (Auto) 84 % (31-73) Lymphocytes (%) (Auto) 7 % (24-48) Monocytes (%) (Auto) 6 % (0-9) Eosinophils (%) (Auto) 2 % (0-3) Basophils (%) (Auto) 1 % (0-3) Neutrophils # (Auto) 6.5 x10^3/uL (1.8-7.7) Lymphocytes # (Auto) 0.5 x10^3/uL (1.0-4.8) Monocytes # (Auto) 0.5 x10^3/uL (0.0-1.1) Eosinophils # (Auto) 0.2 x10^3/uL (0.0-0.7) Basophils # (Auto) 0.1 x10^3/uL (0.0-0.2) Sodium Level 141 mmol/L (136-145) Potassium Level 3.1 mmol/L (3.5-5.1) Chloride Level 109 mmol/L (98-107) Carbon Dioxide Level 22 mmol/L (21-32) Anion Gap 10 (6-14) Blood Urea Nitrogen 42 mg/dL (8-26) Creatinine 1.3 mg/dL (0.7-1.3) Estimated GFR (Cockcroft-Gault) 56.3 Glucose Level 147 mg/dL (70-99) Calcium Level 8.0 mg/dL (8.5-10.1) Triglycerides Level 130 mg/dL (0-150) Cholesterol Level 100 mg/dL (0-200) LDL Cholesterol, Calculated 51 mg/dL (0-100) VLDL Cholesterol, Calculated 26 mg/dL (0-40) Non-HDL Cholesterol Calculated 77 mg/dL (0-129) HDL Cholesterol 23 mg/dL (40-60) Cholesterol/HDL Ratio 4.3 Test 05/15/21 12:30 05/15/21 17:34 05/15/21 20:33 05/16/21 06:55 Glucose (Fingerstick) 180 mg/dL (70-99) 150 mg/dL (70-99) 169 mg/dL (70-99) 153 mg/dL (70-99) Test 05/16/21 11:08 Glucose (Fingerstick) 220 mg/dL (70-99) Laboratory Tests Test 05/15/21 17:34 05/15/21 20:33 05/16/21 06:55 05/16/21 11:08 Glucose (Fingerstick) 150 mg/dL (70-99) 169 mg/dL (70-99) 153 mg/dL (70-99) 220 mg/dL (70-99) Brief Hospital Course Mr Coffey is a 60-year-old man is medical history hypertension and newly diagnosed diabetes who is transferred from [facility], with bilateral lower ext cellulitis, suspected PVD , near occlusion of left peroneal artery by doppler 05/07/21. Cr 1.5 na = 131, bun 35, glucose 506, troponin i 0.105, BGB 14.6 LA 2.4 K=4.8 CRP 293 PLTS 297 ESR =34 Transferred for vascular surgery consult, ID consult, cardiology consult and wound care consults. Was treated with iv vancomycin, heparin drip prior to transfer here 05/08: Afebrile. Clean dry intact dressing on bilateral LE. Run of PVCs on color television console monitor during exam 05/09: Afebrile. Clean dry intact dressing on bilateral LE 05/10: Afebrile. Clean dry intact dressing on bilateral LE. Continue IV ZOSYN and cont IV daptomycin. ECHO left ventricular systolic function is severely diminished EF 20-25%. 05/11: Patient seen and examined. Sitting up in bed, alert, NAD. Afebrile. Clean dry intact dressing on BL LE 05/12: Afebrile. Pain is not well controlled. Leg swelling slow to improve. Cr down to 1.9. Still on zosyn and micfungin IV. Wound care applied [facility] 05/13: Afebrile overnight. Cr to 1.6. BP and heart rate up. Discussed with infectious disease at least another day of IV antibiotics and antifungals. Will initiate carvedilol today. 05/14: Afebrile. [place] "funny". Dry mouth some dizziness with carvedilol dosing. Discussed will cut in half. He may need Toprol-XL instead. Otherwise legs are improving, left still painful. Need to discuss with cardiology follow-up echocardiogram in next 3 months. 05/15: Afebrile. Heart rate still in the 100s despite beta-bushra dosing. CR improved 1.3, K3.1. His left leg pain has resolved she still having pain in his right leg. Afebrile. Symptoms improved. Wounds examined with wound care bedside. Underwent diabetic in congestive heart failure education has [employer] [facility] from [employer] for next week and then will follow up with Dr. Diego. Will follow up with [facility] in 3 months for repeat echocardiogram. Consults: Vascular surgery, cardiology, nephrology, infectious diseases Problem list: Bilateral lower extremity cellulitis - ID consulted, on vancomycin, micafungin Elevated troponin I (0.265) Newly diagnosed diabetes, type 2 - A1C 11.8 ANDREEA - on CKD, vasmotor nephropathy Hyponatremia, resolved PVD Left great toe diabetic ulcer H/o colon cancer in 2011 Lactic acidosis - due to cellulitis, improved Chronic systolic CHF - 2D echo showed EF 20-25%. CXR does not show any overt fluid overload. Ischemic evaluation once cellulitis resolves, possibly as outpatient Hypertensive urgency - now controlled. PAD - arterial duplex with occlusion of left peroneal artery. No major vascular stenosis above the knee - manage conservatively per vascular team Greater than 30 minutes spent on d/c Discharge Information Condition at Discharge: Improved Follow Up: Weeks (1) Disposition/Orders: D/C to Home w/ HH Scheduled Amoxicillin/Potassium Clav (Amox Tr-K Clv 875-125 Mg Tab) 1 Each Tablet, 1 TAB PO BID for Cellulitis for 7 Days, #14 Prescribed by: LELAND AGEE MD on 05/16/21 0707 Atorvastatin Calcium (Atorvastatin Calcium) 40 Mg Tablet, 40 MG PO QHS for CHF for 30 Days, #30 Ref 2 Prescribed by: LELAND AGEE MD on 05/16/21 0707 Doxycycline Hyclate (Doxycycline Hyclate) 100 Mg Tablet, 100 MG PO BID for Cellulitis for 7 Days, #14 Prescribed by: LELAND AGEE MD on 05/16/21 0707 Glipizide (Glipizide) 5 Mg Tablet, 1 TAB PO BID for DM2 for 30 Days, #60 Ref 3 Prescribed by: LELAND AGEE MD on 05/16/21 1234 Hydralazine Hcl (Hydralazine Hcl) 50 Mg Tablet, 50 MG PO TID for CHF for 30 Days, #90 Prescribed by: LELAND AGEE MD on 05/16/21 0707 Insulin Regular, Human (Humulin R) 100 Unit/1 Ml Vial, 0-9 UNIT SQ TIDAC for DM2 for 30 Days, #6 Ref 11 Prescribed by: LELAND AGEE MD on 05/16/21 0707 Isosorbide Mononitrate (Isosorbide Mononitrate Er) 30 Mg Tab.er.24h, 30 MG PO DAILY for CHF for 30 Days, #30 Ref 4 Prescribed by: LELAND AGEE MD on 05/16/21 07 Metoprolol Succinate (Toprol XL) 50 Mg Tab.er.24h, 50 MG PO DAILY for CHF for 30 Days, #30 Ref 4 Prescribed by: LELAND AGEE MD on 7/23706 Nph, Human Insulin Isophane (Humulin N) 100 Unit/1 Ml Vial, 10 UNIT SQ BID for DM2 for 30 Days, #6 Ref 11 Prescribed by: LELAND AGEE MD on 05/16/2107 Justicifation of Admission Dx: Justifications for Admission: Justification of Admission Dx: Yes LELAND AGEE MD May 16, 2021 12:38
[2021-05-16] MEDS ORDERED: METOPROLOL SUCC 24HR ER 25 MG TAB.ER.24H. PO ONE (13:15)
[2021-05-16] MEDS ORDERED: FUROSEMIDE 40 MG TABLET. PO PRN (13:15)
--- NOTE | 2021-05-16 13:15 | PDOC ---
JODY MARIN M[employer]ED [employer] C[employer]TER 05/16/21 1315: CARDIO Progress Notes Date and Time Date of Service 05/16/2021 Time of Evaluation 1300 Subjective Subjective: No Chest Pain, No shortness of breath, No Palpitations Vitals Vitals Vital Signs Date Time Temp Pulse Resp B/P (MAP) Pulse Ox O2 Delivery O2 Flow Rate FiO2 05/16/21 10:44 97.7 95 18 136/83 (100) 98 Room Air 97.7 Weight Weight [ ] Input and Output Intake and Output Intake and Output 05/16/21 07:00 Intake Total 1075 ml Balance 1075 ml Intake Oral 1075 ml # Voids 4 # Bowel Movements 3 Laboratory Labs Laboratory Tests Test 05/15/21 17:34 05/15/21 20:33 05/16/21 06:55 05/16/21 11:08 Glucose (Fingerstick) 150 mg/dL (70-99) 169 mg/dL (70-99) 153 mg/dL (70-99) 220 mg/dL (70-99) Microbiology Micro Microbiology 05/07/21 Blood Culture - Final, Complete NO GROWTH AFTER 5 DAYS Physical Exam HEENT: Neck Supple W Full Motion Chest: Symmetric LUNGS: Other (diminished bases) Heart: RRR (SR/ST) Abdomen: Soft N/T Extremities: Other (bilateral LE cellulitis, drsgs intact ) Neurology: alert, oriented, follow commands Assessment Assessment 1. LE cellulitis: Continue IV antibiotics. ID following 2. ANDREEA on CKD; now optimized, nephrology following 3. Uncontrolled diabetes, II; as per IM 4. Mild troponin elevation; highest 0.28. Most probably type II, demand ischemia in setting of above. CP free. 2D echo showed EF 20-25%. compensated overall 5. Arrhythmia; appears to have bursts of PAFIB on tele: maintaining SR 6. Hypertensive urgency: better 7. PAD; arterial duplex with occlusion of left peroneal artery. No major vascular stenosis above the knee Vascular saw him 8. Hypokalemia 9. Cardiomyopathy: EF 20-25% per TTE. Compensated Recommendations 1. Meds per GDMT, Continue hydralazine/imdur/toprol. Continue lisinopril. Replace K. Increase toprol. Lasix PRN 2. Continue ASA therapy. Start on statin 3. Outpt ischemic evaluation. Discussed GDMT and workup plan.He is CP free. He would like to go home and await for his medicaid approval and he will notify our office for follow up. 4. CHF education including 2L FR, daily wt, HBPM, Dietitian consult. 5. May DC from cardiac perspective Justicifation of Admission Dx: Justifications for Admission: Justification of Admission Dx: Yes HERNAN HEALY MD 05/19/21 0821: CARDIO Progress Notes Plan Plan Late entry for 05/16/21 Pt. seen and examined. Agree with above SHIPPING AND RECEIVING SPECIALIST note. JODY MARIN [employer] May 16, 2021 13:15 HERNAN HEALY MD May 19, 2021 08:21
[2021-05-16] MEDS ORDERED: FURO40TA4 PO (14:33)
[2021-05-16] MEDS ORDERED: TRAM50TA PO (14:35)
[2021-05-16 14:46] LABS: CALCIUM 7.9 mg/dL (8.5-10.1); CREATININE 1.2 mg/dL (0.7-1.3); GFR 61.8; POTASSIUM 3.3 mmol/L (3.5-5.1)
[2021-05-16 14:50] VITALS: BP 148/89
[2021-05-16] MEDS ORDERED: POTASSIUM CHLORIDE 20 MEQ TABLET.ER. PO ONE (15:30)
--- NOTE | 2021-05-16 18:42 | NUR ---
Discharge: Extensive teaching verbal and written. Reviewed diabetes, meal planning, how to check insulin, insulin administration, how to check blood sugar, sliding scale, ECHO, CHF, wound care, ect. Patient verbalized understanding. Prescriptions transmitted to pharmacy by physician and copy of prescriptions sent with patient. Resources given to patient by social work. [facility] set up for wound care. PICC line removed, no complications,catheter tip intact, dressing applied. Patient verbalized understanding. Family at bedside. patient assisted off of unit via wheelchair accompanied by family and ORDER PACKER
[2021-05-17] MEDS ORDERED: METOPROLOL SUCC 24HR ER 25 MG TAB.ER.24H. PO SCH (09:00)
== END 2021-05-16 18:40 | disposition home or self-care (01) | DRG 871 ==
LOC: 2 SOUTH 14:54
PROVIDERS: ADMIT Internal Medicine; ATTEND Internal Medicine
PROC: 02HV33Z Insertion of Infusion Device into Superior Vena Cava, Percutaneous Approach (ICD-10-PCS; principal; 2021-05-07)
PROC: 0HBNXZZ Excision of Left Foot Skin, External Approach (ICD-10-PCS; 2021-05-09)
DX: A41.9 Sepsis, unspecified organism (principal); N17.0 Acute kidney failure with tubular necrosis; L03.115 Cellulitis of right lower limb; E87.2 Acidosis; E87.1 Hypo-osmolality and hyponatremia; I13.0 Hypertensive heart and chronic kidney disease with heart failure and stage 1 through stage 4 chronic kidney disease, or unspecified chronic kidney disease; I24.8 Other forms of acute ischemic heart disease; I42.9 Cardiomyopathy, unspecified; I47.2 Ventricular tachycardia; I50.22 Chronic systolic (congestive) heart failure; J98.11 Atelectasis; L97.919 Non-pressure chronic ulcer of unspecified part of right lower leg with unspecified severity; L03.116 Cellulitis of left lower limb; E11.621 Type 2 diabetes mellitus with foot ulcer; E11.22 Type 2 diabetes mellitus with diabetic chronic kidney disease; E11.51 Type 2 diabetes mellitus with diabetic peripheral angiopathy without gangrene; E11.622 Type 2 diabetes mellitus with other skin ulcer; E11.65 Type 2 diabetes mellitus with hyperglycemia; E66.01 Morbid (severe) obesity due to excess calories; E83.42 Hypomagnesemia; E87.6 Hypokalemia; I16.0 Hypertensive urgency; I25.10 Atherosclerotic heart disease of native coronary artery without angina pectoris; I48.0 Paroxysmal atrial fibrillation; I49.3 Ventricular premature depolarization; I70.202 Unspecified atherosclerosis of native arteries of extremities, left leg; L03.032 Cellulitis of left toe; L30.9 Dermatitis, unspecified; L97.529 Non-pressure chronic ulcer of other part of left foot with unspecified severity; N18.9 Chronic kidney disease, unspecified; R09.02 Hypoxemia; Z79.4 Long term (current) use of insulin; Z82.49 Family history of ischemic heart disease and other diseases of the circulatory system; Z83.3 Family history of diabetes mellitus; Z85.048 Personal history of other malignant neoplasm of rectum, rectosigmoid junction, and anus; Z68.36 Body mass index [BMI] 36.0-36.9, adult; Z91.19 Patient's noncompliance with other medical treatment and regimen; L97.522 Non-pressure chronic ulcer of other part of left foot with fat layer exposed
CPT/HCPCS: 36415; 36569; 36600; 71045; 73630; 76770; 80048; 80053; 80061; 80202; 81001; 82550; 82805; 82962; 83036; 83735; 85007; 85025; 87040; 93306; J0878; J1200; J1650; J1815; J2248; J2270; J2405; J2543; J7030; J7060; 97110-GP; 97116-GP; 97530-GO; 97530-GP; 97535-GO; G0378; Q0163